=== PATIENT | female | born 1980 | race Caucasian/White ===

== ENCOUNTER 2016-09-25 13:57 | Observation (INO) ==
[2016-09-25] MEDS ORDERED: 0.9 % Sodium Chloride 1,000 ML IVC ONE (14:00)
[2016-09-25] MEDS ORDERED: Hydrocortisone Sodium Succ 100 MG/2 ML VIAL IVP ONE (14:01)
[2016-09-25] MEDS ORDERED: Ketorolac 30 MG/ML VIAL IVP ONE (14:02)
[2016-09-25] MEDS ORDERED: *HR* Promethazine 25 MG/ML VIAL IVP ONE (14:02)
--- NOTE | 2016-09-25 14:10 | Emergency Department Note ---
Disposition Clinical Impression: Intractable abdominal pain, History of Almo's disease Intractable nausea and vomiting Qualifiers: Vomiting type: unspecified Qualified Code(s): R11.2 - Nausea with vomiting, unspecified Disposition: Admitted As Inpatient Condition: Fair Referrals: NO,PCP [Primary Care Provider] - Forms: Work/School Release, ED Satisfaction Letter Time of Disposition: 18:38 Abdominal Pain HPI - General Chief Complaint: ED Abdominal Pain Stated Complaint: abdominal pain/n/v Time Seen by Provider: 09/25/16 13:59 Source: patient, EMS Mode of arrival: ambulatory Limitations: no limitations Nursing Notes Reviewed: Yes Vital Signs Reviewed: Yes - History of Present Illness HPI Narrative: Patient is a 36-year-old female with past history of Almo's disease. She presents today due to nausea, vomiting, generalized abdominal pain, what she is calling medicine crisis. Patient says that she takes 20 mg of hydrocortisone daily. She does not have any medication home for [place] crisis because "her insurance will not cover it. "Patient said that she has had multiple crises in the past and they will presented this way. She denies any fever, diarrhea, chest pain, shortness of breath, burning with urination or blood in urine. She does admit to sweating and generalized fatigue Pain Scale: 10 - Related Data Home Medications Medication Instructions Recorded Confirmed Pantoprazole Sodium [Protonix] 40 mg PO DAILY 04/06/16 09/25/16 Hydrocortisone [Cortef] 20 mg PO DAILY 09/25/16 09/25/16 Previous Rx's Medication Instructions Recorded Aspirin 81 mg PO DAILY #30 tab.chew 04/17/16 Allergies Allergy/AdvReac Type Severity Reaction Status Date / Time No Known Allergies Allergy Verified 09/14/16 12:09 Constitutional: Denies: fever, chills Eyes: Denies: eye pain, eye discharge ENT ED: Denies: ear pain, throat pain Cardiovascular: Denies: chest pain, palpitations, dyspnea on exertion Respiratory: Denies: cough, dyspnea, wheezes Gastrointestinal: Reports: abdominal pain, nausea, vomiting. Denies: diarrhea, constipation Genitourinary: Denies: urgency, dysuria, frequency Musculoskeletal: Denies: back pain, neck pain Integumentary: Denies: rash, abrasion Neurological: Denies: headache, weakness, numbness Psychiatric: Denies: anxiety, depression Endocrine: Denies: fatigue Abdominal Pain PMH - Past Medical History Medical history: Reports: other Female Surgical History: Reports: LATIN PROFESSOR history: Reports: no LATIN PROFESSOR history Psychiatric history: Reports: previous psychiatric hospitalization, anxiety, depression, panic disorder, prior suicide attempt - Social History Smoking status: Current every day smoker Alcohol use: Reports: occasionally Drug use: Reports: marijuana Physical Exam - General Limitations: no limitations General appearance: alert, in distress - Head Head exam: atraumatic, normocephalic, normal inspection - Eye Eye exam: Present: normal appearance, PERRL, EOMI - ENT ENT exam: normal exam, normal oropharynx, mucous membranes moist - Neck Neck exam: Present: normal inspection, full ROM, trachea midline - Chest Chest inspection: Present: normal inspection, symmetric chest wall rise - Respiratory Respiratory exam: Present: normal lung sounds bilaterally. Absent: respiratory distress, wheezes, stridor - Cardiovascular Cardiovascular exam: Present: regular rate, normal rhythm, normal heart sounds - Abdominal Exam Abdominal exam: Present: soft, tenderness (Moderate generalized tenderness). Absent: distention, guarding, rebound, rigidity - Extremities Exam Extremities exam: Present: normal inspection, full ROM. Absent: tenderness, pedal edema - Back Exam Back exam: Present: normal inspection, full ROM. Absent: tenderness - Neurological Exam Neurological exam: Present: alert, oriented X3 - Psychiatric Psychiatric exam: Present: normal affect, normal mood - Skin Skin exam: Present: warm, dry, intact, normal color Course Course Narrative: Vitals within normal limits. When patient presented, she was on her side in the position and actively gagging and vomiting. She had moderate generalized tenderness of the abdomen but no rigidity or peritoneal signs. She got Zofran 4 mg and a normal saline 1 L by the squad. She states that these are not helping. She says Phenergan usually helps with her nausea. She is also requesting pain medication for her abdominal pain. She states that she normally gets Solu-Cortef injection for addisonian crisis. We will also draw basic labs, abdominal pain labs, random cortisol and ACTH levels. We will give the patient Phenergan for nausea, Toradol for pain control, another liter of fluid. 18:34 patient was given multiple doses of antiemetic including Phenergan and Zofran during her stay. She was also given Toradol, morphine, Dilaudid for abdominal pain. She is still having intractable nausea and vomiting and abdominal pain. CT scan of abdomen and pelvis was negative for any acute intra- abdominal process. No major abnormalities on labs except for a white blood cell count of 14.9. Random cortisol level still pending. ACTH level still pending as well. I talked to the hospitalist and he has accepted the patient for admission. Vital Signs Temperature 97.7 F 09/25/16 14:00 Pulse Rate 84 09/25/16 14:00 Respiratory Rate 22 09/25/16 14:00 Blood Pressure 151/98 09/25/16 14:00 O2 Sat by Pulse Oximetry 99 09/25/16 14:00 Temperature 97.7 F 09/25/16 14:00 Pulse Rate 96 09/25/16 18:14 Respiratory Rate 16 09/25/16 18:14 Blood Pressure 163/99 09/25/16 18:14 O2 Sat by Pulse Oximetry 97 09/25/16 18:14 Oxygen Delivery Oxygen Delivery Room Air Abdominal Pain - MDM Narrative Medical decision making narrative: patient was given multiple doses of antiemetic including Phenergan and Zofran during her stay. She was also given Toradol, morphine, Dilaudid for abdominal pain. She is still having intractable nausea and vomiting and abdominal pain. CT scan of abdomen and pelvis was negative for any acute intra-abdominal process. No major abnormalities on labs except for a white blood cell count of 14.9. Random cortisol level still pending. ACTH level still pending as well. I talked to the hospitalist and he has accepted the patient for admission for intractable nausea and vomiting, intractable abdominal pain, concern for addisonian crisis. - Medical Records Medical records reviewed: Yes I reviewed the patient's medical records. - Lab Data Lab results reviewed: Yes I reviewed the patient's lab results. Result diagrams: 09/25/16 15:41 09/25/16 15:41 Lab Results 09/25/16 09/25/16 09/25/16 Range/Units 15:41 15:41 15:41 WBC 14.9 H (4.3-11.1) K/mcL RBC 4.52 (3.82-4.97) M/mcL Hgb 14.6 (11.5-15.4) g/dL Hct 46.2 H (35.3-44.9) % MCV 102.2 H (83.0-100.0) fL MCH 32.3 (28.0-33.3) pg MCHC 31.6 (31.6-35.5) g/dL RDW 12.1 (11.5-14.5) % Plt Count 364 (140-400) K/mcL MPV 9.5 (9.4-12.4) fL Immature Gran % 0.7 (0-4) % Seg Neutrophils % 93.6 % Lymphocytes % 3.0 % Monocytes % 2.3 % Eosinophils % 0.0 % Basophils % 0.4 % Neutrophils # 14.0 H (1.6-8.9) K/mcL Lymphocytes # 0.5 L (0.6-4.6) K/mcL Monocytes # 0.3 (0.0-1.3) K/mcL Eosinophils # 0.0 (0.0-0.6) K/mcL Basophils # 0.1 (0.0-0.2) K/mcL Sodium 139 (136-145) mEq/L Potassium 4.0 (3.5-4.5) mEq/L Chloride 110 H (98-109) mEq/L Carbon Dioxide 16 L (19-29) mEq/L BUN 9 (7-20) mg/dL Creatinine 0.65 (0.57-1.11) mg/dL Est GFR ( Amer) > 60 (> 60) Est GFR (Non-Af Amer) > 60 (> 60) BUN/Creatinine Ratio 14 (6-26) Glucose 120 H (70-99) mg/dL Calculated Osmolality 288 (280-300) Calcium 9.2 (8.6-10.8) mg/dL Total Bilirubin 1.1 (0.2-1.2) mg/dL Direct Bilirubin 0.4 (0.0-0.5) mg/dL Indirect Bilirubin 0.7 (0.0-1.2) mg/dL AST 16 (5-34) Units/L ALT 20 (0-55) Units/L Alkaline Phosphatase 82 (38-126) Units/L Serum Total Protein 7.1 (6.0-8.3) g/dL Albumin 3.8 (3.5-5.0) g/dL Globulin 3.3 (2.4-3.5) g/dL Albumin/Globulin Ratio 1.2 (1.1-2.2) Amylase 51 (25-125) Units/L Lipase 11 (8-78) Units/L Random Cortisol 123.8 mcg/dl Urine Color (Yellow) Urine Clarity (Clear) Urine pH (5.0-8.0) pH Units Ur Specific [place] (1.010-1.025) Urine Protein (Neg-Trace) mg/dL Urine Glucose (UA) (Normal) mg/dL Urine Ketones (Negative) mg/dL Urine Blood (Negative) Urine Nitrite (Negative) Urine Bilirubin (Negative) Urine Urobilinogen (Normal) mg/dL Ur Leukocyte Esterase (Negative) Urine Microscopic RBC Urine Microscopic WBC (0-3) per hpf Ur Squamous Epith Cells (None-Few) per lpf Amorphous Sediment (Few) Urine Bacteria (None-Few) per hpf Hyaline Casts (None-Few) per lpf Granular Casts (None Seen) per lpf Urine Mucus (Few) Ur Culture Indicated? (NO) Urine Test (Negative) 09/25/16 09/25/16 Range/Units 16:51 16:56 WBC (4.3-11.1) K/mcL RBC (3.82-4.97) M/mcL Hgb (11.5-15.4) g/dL Hct (35.3-44.9) % MCV (83.0-100.0) fL MCH (28.0-33.3) pg MCHC (31.6-35.5) g/dL RDW (11.5-14.5) % Plt Count (140-400) K/mcL MPV (9.4-12.4) fL Immature Gran % (0-4) % Seg Neutrophils % % Lymphocytes % % Monocytes % % Eosinophils % % Basophils % % Neutrophils # (1.6-8.9) K/mcL Lymphocytes # (0.6-4.6) K/mcL Monocytes # (0.0-1.3) K/mcL Eosinophils # (0.0-0.6) K/mcL Basophils # (0.0-0.2) K/mcL Sodium (136-145) mEq/L Potassium (3.5-4.5) mEq/L Chloride (98-109) mEq/L Carbon Dioxide (19-29) mEq/L BUN (7-20) mg/dL Creatinine (0.57-1.11) mg/dL Est GFR ( Amer) (> 60) Est GFR (Non-Af Amer) (> 60) BUN/Creatinine Ratio (6-26) Glucose (70-99) mg/dL Calculated Osmolality (280-300) Calcium (8.6-10.8) mg/dL Total Bilirubin (0.2-1.2) mg/dL Direct Bilirubin (0.0-0.5) mg/dL Indirect Bilirubin (0.0-1.2) mg/dL AST (5-34) Units/L ALT (0-55) Units/L Alkaline Phosphatase (38-126) Units/L Serum Total Protein (6.0-8.3) g/dL Albumin (3.5-5.0) g/dL Globulin (2.4-3.5) g/dL Albumin/Globulin Ratio (1.1-2.2) Amylase (25-125) Units/L Lipase (8-78) Units/L Random Cortisol mcg/dl Urine Color Yellow (Yellow) Urine Clarity Turbid A (Clear) Urine pH 7.0 (5.0-8.0) pH Units Ur Specific [place] 1.024 (1.010-1.025) Urine Protein Trace (Neg-Trace) mg/dL Urine Glucose (UA) Normal (Normal) mg/dL Urine Ketones 15 H (Negative) mg/dL Urine Blood Trace H (Negative) Urine Nitrite Negative (Negative) Urine Bilirubin Negative (Negative) Urine Urobilinogen Normal (Normal) mg/dL Ur Leukocyte Esterase Moderate H (Negative) Urine Microscopic RBC Test Not Performed Urine Microscopic WBC 5-15 H (0-3) per hpf Ur Squamous Epith Cells Many H (None-Few) per lpf Amorphous Sediment Many H (Few) Urine Bacteria Moderate H (None-Few) per hpf Hyaline Casts Few (None-Few) per lpf Granular Casts Few H (None Seen) per lpf Urine Mucus Few (Few) Ur Culture Indicated? YES A (NO) Urine Test Negative (Negative) - Radiology Data Radiology results reviewed: Yes I reviewed the patient's radiology results. Abdomen/Pelvis CT 09/25/16 14:39 IMPRESSION: No acute findings within the abdomen or pelvis. No CT evidence of appendicitis. Stable calcification and nodularity of the left adrenal gland, likely related to previous trauma or infectious or inflammatory process. Suggestion of nonobstructive left-sided nephrolithiasis. No evidence of obstructive uropathy. D/ / 09/25/2016 17:04:12 Qamar Merritt MD / [place] Interpreting Provider: Qamar Merritt MD - EKG Data EKG attestation: Yes I reviewed and interpreted this EKG. EKG results narrative: Sep 25 2016 14:11. Normal sinus rhythm. Rate 84. QTC 417. QRS 102. No acute ST elevation or depression. No changes from previous EKG on 01/25/2016. Nicholas - Nicholas Situation: Demographics, MOA Background: Presenting Complaint, Relevant PMH, Meds, & Allergies Assessment: Vital Signs, Course and respsone to treatment, Exam Concerns, Patient/Family Expectation, Pertinant Lab Results, Outstanding Labs Recommendation: Barrier(s) to disposition, Recommendation based on pending studies, treatments, or consults Nicholas Report Given to: Dr. Jeannie Peterson Repor Time: 18:38 Attestation Statement - Attestation Attestation: I examined this patient and my medical decision-making was reviewed with the CISTERN ROOM WORKING SUPERVISOR/PA/Advanced Practice Nurse/Resident Physician. I agree with the documented findings, disposition and treatment plan as described except to the extent set forth below. Patient to the emergency department complaining of adrenal crisis. Patient states she has Almo's disease. States she does not see her specialist anymore. States she has a primary care physician writes her steroids that she does not know what his name is. Pain and vomiting since last night. On exam she is laying in bed. Epigastric tenderness. Abdomen soft. Plan. Labs fluid steroids and reevaluate.
[2016-09-25] MEDS ORDERED: Ondansetron 4 MG/2 ML VIAL IVP ONE (15:17)
[2016-09-25] MEDS ORDERED: *HR* Morphine 2 MG/ML SYRINGE IVP ONE (15:18)
[2016-09-25 15:50] LABS: Basophils # 0.1 K/mcL (0.0-0.2); Basophils % 0.4 %; Hematocrit 46.2 % (35.3-44.9); Hemoglobin 14.6 g/dL (11.5-15.4); Immature Granulocytes % 0.7 % (0-4); Lymphocytes # 0.5 K/mcL (0.6-4.6); Mean Corpuscular HGB Conc 31.6 g/dL (31.6-35.5); Mean Corpuscular Hemoglobin 32.3 pg (28.0-33.3); Mean Corpuscular Volume 102.2 fL (83.0-100.0); Mean Platelet Volume 9.5 fL (9.4-12.4); Monocytes # 0.3 K/mcL (0.0-1.3); Monocytes % 2.3 %; Platelet Count 364 K/mcL (140-400); Red Blood Count 4.52 M/mcL (3.82-4.97); Red Cell Distribution Width 12.1 % (11.5-14.5); Segmented Neutrophils % 93.6 %
[2016-09-25 16:08] LABS: Alanine Aminotransferase 20 Units/L (0-55); Albumin 3.8 g/dL (3.5-5.0); Albumin/Globulin Ratio 1.2 (1.1-2.2); Alkaline Phosphatase 82 Units/L (38-126); Amylase 51 Units/L (25-125); Aspartate Amino Transferase 16 Units/L (5-34); BUN/Creatinine Ratio 14 (6-26); Bilirubin,Direct 0.4 mg/dL (0.0-0.5); Bilirubin,Indirect 0.7 mg/dL (0.0-1.2); Bilirubin,Total 1.1 mg/dL (0.2-1.2); Blood Urea Nitrogen 9 mg/dL (7-20); Calcium 9.2 mg/dL (8.6-10.8); Carbon Dioxide 16 mEq/L (19-29); Chloride 110 mEq/L (98-109); Globulin 3.3 g/dL (2.4-3.5); Glucose 120 mg/dL (70-99); Lipase 11 Units/L (8-78); Osmolality,Calculated 288 (280-300); Sodium 139 mEq/L (136-145); Total Protein 7.1 g/dL (6.0-8.3); eGFR For African Americans > 60 (> 60); eGFR For Non-African Americans > 60 (> 60)
[2016-09-25 17:02] LABS: Bilirubin,Urine Negative (Negative); Blood,Urine Trace (Negative); Clarity,Urine Turbid (Clear); Color,Urine Yellow (Yellow); Glucose,Urine (UA) Normal (Normal); Ketones,Urine 15 mg/dL (Negative); Leukocyte Esterase,Urine Moderate (Negative); Nitrite,Urine Negative (Negative); Protein,Urine Trace mg/dL (Neg-Trace); Specific Gravity,Urine 1.024 (1.010-1.025); Urobilinogen,Urine Normal (Normal)
[2016-09-25 17:04] LABS: Bacteria,Urine Moderate per hpf (None-Few); Hyaline Casts,Urine Few per lpf (None-Few); Squamous Epithelial Cell,Urine Many per lpf (None-Few)
[2016-09-25 17:13] LABS: Amorphous Sediment,Urine Many (Few)
[2016-09-25 17:14] LABS: Granular Casts,Urine Few per lpf (None Seen); Mucus,Urine Few (Few)
[2016-09-25] MEDS ORDERED: *HR* HYDROmorphone (PF) 1 MG/ML SYRINGE IVP ONE (17:58)
[2016-09-25] MEDS ORDERED: *HR* Morphine 2 MG/ML SYRINGE IVP PRN (19:56)
[2016-09-25] MEDS ORDERED: Ondansetron 4 MG/2 ML VIAL IVP PRN (19:58)
[2016-09-25] MEDS ORDERED: Acetaminophen 325 MG TABLET PO PRN (20:53)
[2016-09-25] MEDS ORDERED: Naloxone 0.4 MG/ML INJ IVP PRN (20:53)
--- NOTE | 2016-09-25 21:09 | Internal Med History&Physical ---
Date of Encounter: 09/25/16 Time of Encounter: 20:30 Assessment and Plan (1) Intractable vomiting with nausea Current visit: No Status: Resolved Patient came in with intractable nausea and vomiting. Etiology likely secondary to adrenal insufficiency. Zofran/Phenergan for nausea control. Morphine for pain control Solu-Cortef 100mg Q8HR continue to monitor electrolytes. Clear liquid diet until nausea subsides- consider advancing diet as tolerated tomorrow. IVF at 100ml/hr Patient should follow up with PCP after discharge, continue home replacement steroids as directed by PCP. Patient counseled on importance of taking home steroid and regular PCP follow up. Qualifiers: Vomiting type: unspecified Qualified Code(s): R11.2 - Nausea with vomiting , unspecified (2) GERD (gastroesophageal reflux disease) Current visit: Yes Status: Acute continue home med prilosec. Qualifiers: Esophagitis presence: esophagitis presence not specified Qualified Code(s) : K21.9 - Gastro-esophageal reflux disease without esophagitis (3) Abdominal pain Current visit: No Status: Acute pain control with morphine. plan as above. Qualifiers: Abdominal location: unspecified location Qualified Code(s): R10.9 - Unspecified abdominal pain (4) Adrenal insufficiency (Bennington's disease) Current visit: No Status: Chronic plan as #1 above. (5) Leucocytosis Current visit: No Status: Resolved Patient's white count is 14.9 with neutrophil count of 14. Etiology unclear at this time, urinalysis showed possible evidence of infection , urine culture pending. CT abdomen/pelvis showed no acute findings, but stable calcification and nodularity of left adrenal gland, no evidence of obstructive uropathy. Patient's temperature at this time is normal. Upon admission to ED, her respirations were 22, but likely due to dehydration and vomiting. COntinue to monitor, trend with repeat CBC in am. Qualifiers: Leukocytosis type: unspecified Qualified Code(s): D72.829 - Elevated white blood cell count, unspecified (6) Tobacco abuse Current visit: No Status: Chronic nicotine patch PRN (7) DVT prophylaxis Current visit: No Status: Acute Heparin SQ Internal Medicine - H&P: HPI Chief complaint: nause and vomiting Admitted From: Emergency Dept Plans for Post Hospital Care: Home History of present illness: PCP: she does not remember. Was seeing Fouzia Crane but she was dismissed from that practice due to frequent no-shows. She sees a new doctor at the [facility] but does not remember his name. Ms. Cronin is a 36 year old female with PMHx of Addisons disease, anxiety, depression, GERD, factor V leiden, hx of past suicide attempt. Patient came to the ED with CC of nause and vomiting. She states that she has been under a lot of stress recently due to work. Last night, she started feeling nauseous and was having constant abdominal pain that started as 9/10, but was 6/10 upon examination. She started vomiting continuously (too many episodes to count). Her vomit was yellow colored, but contained no blood. Recent sick contact includes her two year old daughter, who had a cough, runny nose, but no fever. She denies having diarrhea. She denies subjective fevers, but admits to having chills and diaphoresis. She states she has had multiple episodes of addionian crises in the past. Her last admission to this hospital for adrenal insufficiency was in february. She states that she takes her home dose of hydrocortisone regularly, and does not miss doses. However, she never was able to fill her prescription for her emergency solu-cortef shot because her insurance would not cover it and she cannot afford it. She reports having dizziness, fatigue, weakness, diaphoresis and states that she feels like she is "dying." She also says she feels "bloated". SHe denies any syncopal events, gait abnormality. Social Hx: lives with mom and daughter. Smokes 1PPD for the past 18 years. Occasional alcohol use. Occasionally smokes marijuana to help with nausea. Denies illicit drug use, denies hx of IV drug use. Family Hx: dad from lung cancer at 54, and was a smoker. paternal grandfather of lung cancer and had colon cancer. mother is still living, smokes and has COPD, had hx of open heart surgery. she has one sister with hypothyroidism and one sister with fibromyalgia. Surgical Hx: tubal ligation 2 years ago with . laproscopic cholecystectomy 7 years ago, reconstructive face surgery because of left orbital blow out fracture about 10 years go. Past Med Surg Social Fam HX - Past Medical History Medical history: other Psychiatric history: previous psychiatric hospitalization, anxiety, depression, panic disorder, prior suicide attempt - Past Surgical History Surgical History: no surgical history, cholecystectomy, - Social History Smoking Status: Current every day smoker Smokeless Tobacco Status: No Alcohol use: occasionally Drug use: marijuana - Family History Mother Hx Family Cardiac Disorders: Yes (bypass surgury.) Hx Family Respiratory Disorders: Yes (COPD) Hx Family GI Disorders: No Hx Family Endocrine Disorder: Yes (DM) Hx Family Neuromuscular Disorders: No Hx Family Neurologic Disorders: No Hx Family HEENT Disorders: No Hx Family Autoimmune Disorders: No Father Living Status: Hx Family Cancer: Yes (Lung) Internal Medicine - H&P: Meds Pantoprazole Sodium [Protonix] 40 mg PO DAILY 04/06/16 [History] Aspirin 81 mg PO DAILY #30 tab.chew 04/17/16 [Rx] Hydrocortisone [Cortef] 20 mg PO DAILY 09/25/16 [History] Allergies No Known Allergies Allergy (Verified 09/14/16 12:09) All Systems PM: A 10-system review of systems was performed and is negative for pertinent findings except as documented above in the HPI. - Constitutional Constitutional: chills, excessive sweating, fatigue, lethargy, weakness, no fever(s), no falls - EENT Eyes: pain (abdominal pain) - Cardiovascular Cardiovascular ROS IM: diaphoresis, lightheadedness, no syncope - Gastrointestinal Gastrointestinal: abdominal pain, bloating, nausea, vomiting, no diarrhea - Neurological Neurological ROS: dizziness, no abnormal gait, no frequent falls - Psychiatric Psychiatric: depression, no homicidal ideation, no suicidal ideation - Constitutional Vitals: Temp Pulse Resp BP Pulse Ox 98.0 F 94 14 113/76 97 09/25/16 19:41 09/25/16 19:41 09/25/16 19:41 09/25/16 19:41 09/25/16 19:41 General appearance: Present: A&O X 3, pleasant, no acute distress, answers questions appropriately - Head Head exam: Present: atraumatic, normocephalic - Eye Eye exam: Present: EOMI, PERRL, conjuntiva pink, sclera anicteric Pupils: Present: PERRL - Neck Neck exam general surgery: Present: supple, trachea midline - Respiratory Respiratory exam: Present: CTAB. Absent: rhonchi, wheezes - Cardiovascular Cardiovascular exam: Present: RRR, +S1, +S2 - GI/Abdominal GI/Abdominal exam: Present: normal bowel sounds, tenderness (left upper quadrant tenderness to palpation. ) - Extremities Exam Extremities exam: Present: normal capillary refill, radial pulses palpable and symetrical. Absent: cyanotic, pedal edema - Back Exam Additional comments: mole on back. - Neurological Exam Neurological exam: Present: alert, oriented X3, no focal deficits - Psychiatric Psychiatric exam: Present: normal affect, normal mood. Absent: homicidal ideation - Skin Skin exam: Present: dry, normal color. Absent: cyanosis Additional comments: tattoos present on both schins, lower abdomen, lower back. Internal Med - H&P Results - Labs CBC & Chem 7: 09/25/16 15:41 09/25/16 15:41
[2016-09-25] MEDS: 0.9 % Sodium Chloride 1,000 ML IVC SCH (21:31)
[2016-09-25] MEDS ORDERED: Nicotine 14 MG PATCH.TD24 TD PRN (21:48)
[2016-09-25] MEDS: *HR* Promethazine 25 MG/ML VIAL IVP PRN (22:17)
[2016-09-25] MEDS: Aspirin 81 MG TAB.CHEW PO SCH (22:17)
[2016-09-25] MEDS: *HR* Heparin 5,000 UNIT/ML VIAL SQ SCH (22:17)
[2016-09-25] MEDS: Hydrocortisone Sodium Succ 100 MG/2 ML VIAL IVP SCH (22:18)
[2016-09-25] MEDS: Pantoprazole 40 MG VIAL IVP SCH (23:53)
[2016-09-26] MEDS: *HR* Morphine 2 MG/ML SYRINGE IVP PRN ×5 (04:12→20:43)
[2016-09-26] MEDS: *HR* Promethazine 25 MG/ML VIAL IVP PRN ×3 (04:12→18:02)
[2016-09-26] MEDS: *HR* Heparin 5,000 UNIT/ML VIAL SQ SCH ×3 (06:32→22:09)
[2016-09-26] MEDS: Hydrocortisone Sodium Succ 100 MG/2 ML VIAL IVP SCH ×3 (06:32→22:10)
[2016-09-26] MEDS: Pantoprazole 40 MG VIAL IVP SCH (08:04)
[2016-09-26] MEDS: Aspirin 81 MG TAB.CHEW PO SCH (08:04)
[2016-09-26] MEDS: 0.9 % Sodium Chloride 1,000 ML IVC SCH ×2 (08:06→17:00)
[2016-09-26 09:07] LABS: Basophils % 0.1 %; Hematocrit 38.5 % (35.3-44.9); Immature Granulocytes % 0.9 % (0-4); Lymphocytes # 0.9 K/mcL (0.6-4.6); Lymphocytes % 6.3 %; Mean Corpuscular HGB Conc 33.5 g/dL (31.6-35.5); Mean Corpuscular Hemoglobin 32.4 pg (28.0-33.3); Mean Corpuscular Volume 96.7 fL (83.0-100.0); Mean Platelet Volume 9.8 fL (9.4-12.4); Monocytes # 0.5 K/mcL (0.0-1.3); Monocytes % 3.4 %; Neutrophils # 13.3 K/mcL (1.6-8.9); Platelet Count 380 K/mcL (140-400); Red Blood Count 3.98 M/mcL (3.82-4.97); Red Cell Distribution Width 12.1 % (11.5-14.5); Segmented Neutrophils % 89.3 %
[2016-09-26 09:08] LABS: Hemoglobin 12.9 g/dL (11.5-15.4)
[2016-09-26 09:18] LABS: BUN/Creatinine Ratio 11 (6-26); Blood Urea Nitrogen 7 mg/dL (7-20); Calcium 8.8 mg/dL (8.6-10.8); Carbon Dioxide 19 mEq/L (19-29); Chloride 110 mEq/L (98-109); Glucose 123 mg/dL (70-99); Magnesium 1.6 mg/dL (1.6-2.6); Osmolality,Calculated 285 (280-300); Sodium 138 mEq/L (136-145); eGFR For African Americans > 60 (> 60); eGFR For Non-African Americans > 60 (> 60)
--- NOTE | 2016-09-26 10:56 | Electrocardiograph Report ---
[address] [address] Test Date: 2016-09-25 Pat Name: Stephani Cronin Department: 105 Room: 3A45 Gender: F Field Case Manager: : [id number] Requested By: Michael Arita Order Number: [id number] Reading MD: Fouzia Dial Measurements Intervals Rodman Rate: 84 P: 63 HI: 203 QRS: 78 QRSD: 102 T: 45 QT: 375 QTc: 417 Interpretive Statements SINUS RHYTHM Electronically Signed On 09-26-2016 10:55:06 EST by Fouzia Dial
--- NOTE | 2016-09-26 11:10 | Internal Med Progress Note ---
Date of Encounter: 09/26/16 Time of Encounter: 11:08 - Assessment and plan (1) Intractable nausea and vomiting Current Visit: Yes Status: Acute Assessment and plan: Improved from previous day will advance to regular diet Promethazine prn n/v if remains asymptomatic overnight, likely d/c in am Qualifiers: Vomiting type: unspecified Qualified Code(s): R11.2 - Nausea with vomiting , unspecified (2) Abdominal pain Current Visit: No Status: Resolved Assessment and plan: resolved at this time will continue to monitor Qualifiers: Abdominal location: unspecified location Qualified Code(s): R10.9 - Unspecified abdominal pain (3) History of Beauregard's disease Current Visit: Yes Status: Acute Assessment and plan: Patient reported of not being able to take her Hydrocortisone dosage due to severe nausea and vomiting Initially was started on high stress dose steroids, will taper down dose as patient is clinically improving Will resume PO dose of steroids in am (4) Leucocytosis Current Visit: No Status: Resolved Assessment and plan: likely reactive will monitor off abx at this time UA consistent with bacteuria however patient denies any urinary symptoms, dysuria therefore will not treat asymptomatic bacteruria. Qualifiers: Leukocytosis type: unspecified Qualified Code(s): D72.829 - Elevated white blood cell count, unspecified (5) GERD (gastroesophageal reflux disease) Current Visit: Yes Status: Acute Assessment and plan: continue home medications Qualifiers: Esophagitis presence: esophagitis presence not specified Qualified Code(s) : K21.9 - Gastro-esophageal reflux disease without esophagitis (6) DVT prophylaxis Current Visit: No Status: Acute Assessment and plan: heparin sq (7) Tobacco abuse Current Visit: No Status: Chronic Assessment and plan: Smoking cessation counselling provided patient not ready to quit at this time nicotine replacement therapy provided - Subjective Interval history: Patient seen and examined at bedside. Resting in bed and reports of feeling better compared to the previous day. Tolerated clear liquid diet well this morning and reports of improvement in her nausea and no vomiting. - Constitutional Vitals: Temp Pulse Resp BP Pulse Ox 97.8 F 83 14 104/59 97 09/26/16 07:37 09/26/16 07:37 09/26/16 07:37 09/26/16 07:37 09/26/16 07:37 General appearance: Present: cooperative, A&O X 3, pleasant, no acute distress, answers questions appropriately - Head Head exam: Present: atraumatic, normocephalic - Eye Eye exam: Present: conjuntiva pink, sclera anicteric - Respiratory Respiratory exam: Present: CTAB. Absent: respiratory distress, wheezes - Cardiovascular Cardiovascular exam: Present: RRR, +S1, +S2 - GI/Abdominal GI/Abdominal exam: Present: normal bowel sounds, soft. Absent: distended, tenderness - Extremities Exam Extremities exam: Present: warm, radial pulses palpable and symetrical. Absent : pedal edema - Neurological Exam Neurological exam: Present: alert, oriented X3 - Psychiatric Psychiatric exam: Present: normal affect, normal mood Internal Medicine: Result - Labs CBC & Chem 7: 09/26/16 08:49 09/26/16 08:49 Labs: Short CBC 09/26/16 Range/Units 08:49 WBC 14.9 H (4.3-11.1) K/mcL Hgb 12.9 D (11.5-15.4) g/dL Hct 38.5 (35.3-44.9) % Plt Count 380 (140-400) K/mcL Neutrophils # 13.3 H (1.6-8.9) K/mcL BMP 09/26/16 08:49 Sodium 138 Potassium 4.0 Chloride 110 H Carbon Dioxide 19 BUN 7 Creatinine 0.63 Glucose 123 H Calcium 8.8 Consult Discharge Plan - Plan Referrals: NO,PCP [Primary Care Provider] -
[2016-09-26] MEDS: Nicotine 2 MG GUM BC PRN ×3 (12:08→20:44)
[2016-09-27] MEDS: *HR* Promethazine 25 MG/ML VIAL IVP PRN ×2 (00:54→06:57)
[2016-09-27] MEDS: *HR* Morphine 2 MG/ML SYRINGE IVP PRN ×3 (00:57→09:29)
[2016-09-27] MEDS: Nicotine 2 MG GUM BC PRN ×2 (03:50→09:28)
[2016-09-27 04:08] LABS: Basophils % 0.3 %; Hematocrit 33.1 % (35.3-44.9); Hemoglobin 10.8 g/dL (11.5-15.4); Immature Granulocytes % 0.5 % (0-4); Lymphocytes # 1.7 K/mcL (0.6-4.6); Lymphocytes % 11.4 %; Mean Corpuscular HGB Conc 32.6 g/dL (31.6-35.5); Mean Corpuscular Hemoglobin 32.6 pg (28.0-33.3); Mean Platelet Volume 10.2 fL (9.4-12.4); Monocytes % 6.2 %; Neutrophils # 12.5 K/mcL (1.6-8.9); Platelet Count 299 K/mcL (140-400); Red Blood Count 3.31 M/mcL (3.82-4.97); Red Cell Distribution Width 12.2 % (11.5-14.5); Segmented Neutrophils % 81.6 %
[2016-09-27 04:12] LABS: BUN/Creatinine Ratio 6 (6-26); Calcium 8.1 mg/dL (8.6-10.8); Carbon Dioxide 19 mEq/L (19-29); Chloride 112 mEq/L (98-109); Glucose 125 mg/dL (70-99); Magnesium 1.4 mg/dL (1.6-2.6); Osmolality,Calculated 288 (280-300); Phosphorous 2.5 mg/dL (2.3-4.7); Potassium 3.4 mEq/L (3.5-4.5); Sodium 140 mEq/L (136-145); eGFR For African Americans > 60 (> 60); eGFR For Non-African Americans > 60 (> 60)
[2016-09-27 04:13] LABS: Blood Urea Nitrogen 4 mg/dL (7-20)
[2016-09-27] MEDS: 0.9 % Sodium Chloride 1,000 ML IVC SCH (04:37)
[2016-09-27] MEDS: *HR* Heparin 5,000 UNIT/ML VIAL SQ SCH (06:05)
[2016-09-27] MEDS: Hydrocortisone Sodium Succ 100 MG/2 ML VIAL IVP SCH (06:06)
[2016-09-27] MEDS ORDERED: Magnesium Sulfate 1 GM in D5% in Water 100 ML IVPB ONE (08:12)
[2016-09-27] MEDS: Pantoprazole 40 MG VIAL IVP SCH (09:28)
[2016-09-27] MEDS: Aspirin 81 MG TAB.CHEW PO SCH (09:28)
[2016-09-27] MEDS ORDERED: *HR* OxyCODONE/APAP 10/325 TABLET PO PRN (12:11)
[2016-09-27 15:45] VITALS: BP 126/79
--- NOTE | 2016-09-27 16:36 | Discharge Summary ---
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 (4) Leucocytosis Priority: Secondary Status: Resolved Qualifiers: Leukocytosis type: unspecified Qualified Code(s): D72.829 - Elevated white blood cell count, unspecified (5) GERD (gastroesophageal reflux disease) Priority: Secondary Status: Acute Qualifiers: Esophagitis presence: esophagitis presence not specified Qualified Code(s) : K21.9 - Gastro-esophageal reflux disease without esophagitis (6) DVT prophylaxis Priority: Secondary Status: Acute (7) Tobacco abuse Priority: Secondary Status: Chronic - Discharge Medications Prescriptions: OxyCODONE/APAP 10/325 [Percocet 10/325 MG] 1 each PO Q6HR PRN #20 tablet PRN Reason: Pain Ondansetron ODT [Zofran ODT] 4 mg PO Q6H PRN #20 tab.rapdis PRN Reason: Nausea Home Medications: Pantoprazole Sodium [Protonix] 40 mg PO DAILY 04/06/16 [History] Aspirin 81 mg PO DAILY #30 tab.chew 04/17/16 [Rx] Hydrocortisone [Cortef] 20 mg PO DAILY 09/25/16 [History] Ondansetron ODT [Zofran ODT] 4 mg PO Q6H PRN #20 tab.rapdis 09/27/16 [Rx] OxyCODONE/APAP 10/325 [Percocet 10/325 MG] 1 each PO Q6HR PRN #20 tablet [Rx] Allergies/Adverse Reactions: Allergies No Known Allergies Allergy (Verified 09/14/16 12:09) Date of admission: 09/25/16 18:41 Primary care physician: PCP NO Consults: 09/25/16 21:14 Consult to Turf Grower [CONS] Routine Reason for SW Consult: Financial Concerns Discharging clinician: Nandini Santizo Anticipated date of discharge: 02/09/17 - Patient Status Disposition: Home, Self-Care Condition: Good Functional capacity at discharge: independent ambulation Overall status at discharge: patient is back to baseline - Discharge Instructions Follow Up With: Heladio Tracy MD [Non-Partnered Physician] - 10/03/16 10:30 am Additional Instructions: Please follow up with her primary care physician within one week after discharge from the hospital. Please resume all home medications as prescribed by your primary care physician. - Diet and Activity Activity: resume usual activities as tolerated Diet: advance to your usual diet Hospital course: Ms. Cronin is a 36 year old female with PMHx of Addisons disease, anxiety, depression, GERD, factor V leiden, hx of past suicide attempt who was admitted for intractable nausea, vomiting, and abdominal pain. Reported of not being able to take her steroid dose due to severe nausea and vomiting. She was started on IV steroids, IV fluids, IV pain medications, IV antibiotics. CT abdomen and pelvis was unremarkable for any acute abnormalities. Patient's symptoms improved and she was transitioned to by mouth therapy. At this time she is tolerating by mouth intake well. She reports of resolution of her nausea and vomiting and improvement in her abdominal pain. At this time she is stable for discharge with follow-up with primary care physician. - Time Spent with Patient Total time spent providing and/or coordinating discharge services: - Constitutional Vitals: Temp Pulse Resp BP Pulse Ox 98.4 F 74 16 126/79 97 09/27/16 15:44 09/27/16 15:44 09/27/16 15:44 09/27/16 15:44 09/27/16 15:44 General appearance: Present: cooperative, A&O X 3, pleasant, no acute distress, answers questions appropriately - Head Head exam: Present: atraumatic, normocephalic - Eye Eye exam: Present: PERRL, conjuntiva pink, sclera anicteric - Respiratory Respiratory exam: Present: CTAB. Absent: accessory muscle use, rales, rhonchi, wheezes - Cardiovascular Cardiovascular exam: Present: RRR, +S1, +S2. Absent: diastolic murmur, gallop, rubs, systolic murmur - GI/Abdominal GI/Abdominal exam: Present: normal bowel sounds, soft, no peritoneal signs. Absent: distended, tenderness - Extremities Exam Extremities exam: Present: warm, radial pulses palpable and symetrical. Absent : calf tenderness, cyanotic, pedal edema - Neurological Exam Neurological exam: Present: CN II-XII intact, oriented X3, no focal deficits. Absent: pronater drift, facial droop, speech deficit - Psychiatric Psychiatric exam: Present: normal affect, normal mood
[2016-09-28] MEDS ORDERED: Hydrocortisone 10 MG TABLET PO SCH (14:00)
== END 2016-09-27 17:54 | disposition home or self-care (01) ==
LOC: EMEROO 13:57 → 3ANU 13:57
PROVIDERS: ADMIT Family Medicine; ATTEND Internal Medicine

== ENCOUNTER 2017-03-14 13:53 | Inpatient (IN) ==
[2017-03-14] MEDS ORDERED: 0.9 % Sodium Chloride 1,000 ML IVC ONE ×2 (13:55→16:01)
[2017-03-14] MEDS ORDERED: *HR* Promethazine 25 MG/ML VIAL IVP ONE ×3 (13:55→18:35)
[2017-03-14] MEDS ORDERED: *HR* HYDROmorphone (PF) 1 MG/ML SYRINGE IVP ONE ×3 (13:59→18:35)
[2017-03-14] MEDS ORDERED: Hydrocortisone Sodium Succ 100 MG/2 ML VIAL IVP ONE (14:03)
--- NOTE | 2017-03-14 14:21 | Emergency Department Note ---
Disposition Clinical Impression: Addisons disease Nausea and vomiting Qualifiers: Vomiting type: unspecified Vomiting Intractability: non-intractable Qualified Code(s): R11.2 - Nausea with vomiting, unspecified Abdominal pain Qualifiers: Abdominal location: epigastric Qualified Code(s): R10.13 - Epigastric pain Disposition: Admitted As Inpatient Condition: Good Reasons to Return/Additional Instructions: Please return to the emergency department for any worsening symptoms including intractable nausea and vomiting, abdominal pain, or inability to orally hydrate. Referrals: Armin Hyatt MD [Partnered Physician] - Forms: ED Satisfaction Letter General Adult HPI - General Chief complaint: ED Nausea/Vomiting/Diarrhea Stated complaint: n/v Time Seen by Provider: 03/14/17 13:55 Source: patient, EMS Mode of arrival: EMS Limitations: no limitations Nursing Notes Reviewed: Yes Vital Signs Reviewed: Yes - History of Present Illness HPI Narrative: 37-year-old female presenting to the emergency department for nausea and vomiting. She states that approximately 4 AM she woke up with severe epigastric abdominal pain and vomiting. She states she has multiple episodes similar to this one in the past. She states the pain does not radiate anywhere and is a 9 out of 10 at this moment. She states her normal treatment for this is IV steroids, Phenergan, and Dilaudid. She has a history of [place]'s disease which is maintained on 20 mg of hydrocortisone as an outpatient. She does not have follow-up with exchange trouble shooter at this time. She denies excessive alcohol intake. She is alert and in no acute distress in the room. Vital signs are stable at this time. Pain Scale: 9 - Related Data Home Medications Medication Instructions Recorded Confirmed Pantoprazole Sodium [Protonix] 40 mg PO DAILY 04/06/16 09/26/16 Hydrocortisone [Cortef] 20 mg PO DAILY 09/25/16 09/26/16 Previous Rx's Medication Instructions Recorded Aspirin 81 mg PO DAILY #30 tab.chew 04/17/16 Ondansetron ODT [Zofran ODT] 4 mg PO Q6H PRN #20 tab.rapdis 09/27/16 OxyCODONE/APAP 10/325 [Percocet 1 each PO Q6HR PRN #20 tablet 09/27/16 10/325 MG] Allergies Allergy/AdvReac Type Severity Reaction Status Date / Time No Known Allergies Allergy Verified 09/14/16 12:09 All systems ED: reviewed and negative except as stated. Gastrointestinal: Reports: abdominal pain, nausea, vomiting Past Medical History - Past Medical History Attestation: Yes The following information was validated with the patient. Source: patient Medical history: Reports: other Surgical history: Reports: no surgical history, cholecystectomy, Psychiatric history: Reports: previous psychiatric hospitalization, anxiety, depression, panic disorder, prior suicide attempt COORDINATOR OF GENETIC SERVICES history: Reports: no COORDINATOR OF [employer]ETIC SERVICES history - Social History Smoking Status: Current every day smoker Smokeless Tobacco Status: No Alcohol use: Reports: occasionally Drug use: Reports: marijuana Physical Exam - General Limitations: no limitations General appearance: alert, in no apparent distress - Head Head exam: atraumatic, normocephalic - Eye Eye exam: Present: normal appearance - ENT ENT exam: mucous membranes moist - Neck Neck exam: Present: normal inspection, full ROM - Chest Chest inspection: Present: normal inspection, symmetric chest wall rise. Absent : tenderness - Respiratory Respiratory exam: Present: normal lung sounds bilaterally. Absent: respiratory distress, wheezes - Cardiovascular Cardiovascular exam: Present: regular rate, normal rhythm, normal heart sounds - Abdominal Exam Abdominal exam: Present: soft, tenderness. Absent: distention, guarding, rebound, rigidity Abdominal tenderness: Present: epigastrium - Extremities Exam Extremities exam: Present: normal inspection, full ROM - Neurological Exam Neurological exam: Present: alert, oriented X3 - Psychiatric Psychiatric exam: Present: normal affect - Skin Skin exam: Present: warm, dry, intact Course Course Narrative: 37-year-old female presenting to the emergency department for acute onset nausea and vomiting. She has a history of [place]'s disease. She states these symptoms occur regularly for her. We will order a CBC, CMP, lipase, UA and test. Due to her history of [place]'s disease we will also provide IV fluids, IV steroids, pain control, and nausea control. - Reevaluation(s) Reevaluation #1: Upon reevaluation of patient she was resting comfortably in bed. She states her pain level is now 5 out of 10. She is asking for ice chips. They were provided for by mouth challenge. Time: 15:20 Reevaluation #2: Upon reevaluation the patient she is now feeling nauseous again and she is tachycardic in the room. We will give her another fluid bolus and administer a dose of Phenergan and Dilaudid. Time: 16:41 Reevaluation #3: Reevaluation the patient she is comfortably resting in the room. We will try by mouth challenge with a meal tray. Time: 17:07 Additional Reevaluation(s): Reevaluated the patient. She states she has not felt well going home due to intractable nausea and pain. Review have made the decision to admit her. 18:16 Dr. Grijalva accepts the patient 18:34 Vital Signs Temperature 98.9 F 03/14/17 13:54 Pulse Rate 93 03/14/17 13:54 Respiratory Rate 18 03/14/17 13:54 Blood Pressure 144/103 03/14/17 13:54 O2 Sat by Pulse Oximetry 98 03/14/17 13:54 Temperature 98.9 F 03/14/17 13:54 Pulse Rate 92 03/14/17 17:27 Respiratory Rate 18 03/14/17 17:27 Blood Pressure 155/72 03/14/17 17:27 O2 Sat by Pulse Oximetry 96 03/14/17 17:27 Oxygen Delivery Oxygen Delivery Room Air Medical Decision Making - Medical Records Medical records reviewed: Yes I reviewed the patient's medical records. - Lab Data Lab results reviewed: Yes I reviewed the patient's lab results. Result diagrams: 03/14/17 14:31 03/14/17 14:31 Lab Results 03/14/17 03/14/17 03/14/17 Range/Units 14:31 14:31 14:31 WBC 17.6 H (4.3-11.1) K/mcL RBC 4.25 (3.82-4.97) M/mcL Hgb 13.6 (11.5-15.4) g/dL Hct 40.5 (35.3-44.9) % MCV 95.3 (83.0-100.0) fL MCH 32.0 (28.0-33.3) pg MCHC 33.6 (31.6-35.5) g/dL RDW 12.0 (11.5-14.5) % Plt Count 366 (140-400) K/mcL MPV 10.0 (9.4-12.4) fL Immature Gran % 0.7 (0-4) % Seg Neutrophils % 93.3 % Lymphocytes % 3.4 % Monocytes % 2.3 % Eosinophils % 0.0 % Basophils % 0.3 % Neutrophils # 16.4 H (1.6-8.9) K/mcL Lymphocytes # 0.6 (0.6-4.6) K/mcL Monocytes # 0.4 (0.0-1.3) K/mcL Eosinophils # 0.0 (0.0-0.6) K/mcL Basophils # 0.1 (0.0-0.2) K/mcL Sodium 139 (136-145) mEq/L Potassium 3.7 (3.5-4.5) mEq/L Chloride 108 (98-109) mEq/L Carbon Dioxide 21 (19-29) mEq/L BUN 10 (7-20) mg/dL Creatinine 0.67 (0.57-1.11) mg/dL Est GFR ( Amer) > 60 (> 60) Est GFR (Non-Af Amer) > 60 (> 60) BUN/Creatinine Ratio 15 (6-26) Glucose 120 H (70-99) mg/dL Calculated Osmolality 288 (280-300) Calcium 8.8 (8.6-10.8) mg/dL Total Bilirubin 0.6 (0.2-1.2) mg/dL AST 19 (5-34) Units/L ALT 19 (0-55) Units/L Alkaline Phosphatase 73 (38-126) Units/L Serum Total Protein 7.3 (6.0-8.3) g/dL Albumin 3.8 (3.5-5.0) g/dL Globulin 3.5 (2.4-3.5) g/dL Albumin/Globulin Ratio 1.1 (1.1-2.2) Lipase < 10 (8-78) Units/L Serum , Qual Negative (Negative) Random Cortisol mcg/dl Urine Color (Yellow) Urine Clarity (Clear) Urine pH (5.0-8.0) pH Units Ur Specific [place] (1.010-1.025) Urine Protein (Neg-Trace) mg/dL Urine Glucose (UA) (Normal) mg/dL Urine Ketones (Negative) mg/dL Urine Blood (Negative) Urine Nitrite (Negative) Urine Bilirubin (Negative) Urine Urobilinogen (Normal) mg/dL Ur Leukocyte Esterase (Negative) Urine Microscopic RBC (0-3) per hpf Urine Microscopic WBC (0-3) per hpf Ur Squamous Epith Cells (None-Few) per lpf Urine Bacteria (None-Few) per hpf Hyaline Casts (None-Few) per lpf Ur Culture Indicated? (NO) 03/14/17 03/14/17 Range/Units 14:31 15:58 WBC (4.3-11.1) K/mcL RBC (3.82-4.97) M/mcL Hgb (11.5-15.4) g/dL Hct (35.3-44.9) % MCV (83.0-100.0) fL MCH (28.0-33.3) pg MCHC (31.6-35.5) g/dL RDW (11.5-14.5) % Plt Count (140-400) K/mcL MPV (9.4-12.4) fL Immature Gran % (0-4) % Seg Neutrophils % % Lymphocytes % % Monocytes % % Eosinophils % % Basophils % % Neutrophils # (1.6-8.9) K/mcL Lymphocytes # (0.6-4.6) K/mcL Monocytes # (0.0-1.3) K/mcL Eosinophils # (0.0-0.6) K/mcL Basophils # (0.0-0.2) K/mcL Sodium (136-145) mEq/L Potassium (3.5-4.5) mEq/L Chloride (98-109) mEq/L Carbon Dioxide (19-29) mEq/L BUN (7-20) mg/dL Creatinine (0.57-1.11) mg/dL Est GFR ( Amer) (> 60) Est GFR (Non-Af Amer) (> 60) BUN/Creatinine Ratio (6-26) Glucose (70-99) mg/dL Calculated Osmolality (280-300) Calcium (8.6-10.8) mg/dL Total Bilirubin (0.2-1.2) mg/dL AST (5-34) Units/L ALT (0-55) Units/L Alkaline Phosphatase (38-126) Units/L Serum Total Protein (6.0-8.3) g/dL Albumin (3.5-5.0) g/dL Globulin (2.4-3.5) g/dL Albumin/Globulin Ratio (1.1-2.2) Lipase (8-78) Units/L Serum , Qual (Negative) Random Cortisol > 119.6 mcg/dl Urine Color Yellow (Yellow) Urine Clarity Cloudy A (Clear) Urine pH 7.0 (5.0-8.0) pH Units Ur Specific [place] 1.017 (1.010-1.025) Urine Protein Trace (Neg-Trace) mg/dL Urine Glucose (UA) Normal (Normal) mg/dL Urine Ketones 80 H (Negative) mg/dL Urine Blood Negative (Negative) Urine Nitrite Negative (Negative) Urine Bilirubin Negative (Negative) Urine Urobilinogen Normal (Normal) mg/dL Ur Leukocyte Esterase Small H (Negative) Urine Microscopic RBC 0-3 (0-3) per hpf Urine Microscopic WBC 5-15 H (0-3) per hpf Ur Squamous Epith Cells Many H (None-Few) per lpf Urine Bacteria Many H (None-Few) per hpf Hyaline Casts None Seen (None-Few) per lpf Ur Culture Indicated? YES A (NO) - Radiology Data Radiology results reviewed: Yes I reviewed the patient's radiology results.
[2017-03-14 14:39] LABS: Basophils # 0.1 K/mcL (0.0-0.2); Basophils % 0.3 %; Hematocrit 40.5 % (35.3-44.9); Hemoglobin 13.6 g/dL (11.5-15.4); Immature Granulocytes % 0.7 % (0-4); Lymphocytes # 0.6 K/mcL (0.6-4.6); Lymphocytes % 3.4 %; Mean Corpuscular HGB Conc 33.6 g/dL (31.6-35.5); Mean Corpuscular Volume 95.3 fL (83.0-100.0); Monocytes # 0.4 K/mcL (0.0-1.3); Monocytes % 2.3 %; Neutrophils # 16.4 K/mcL (1.6-8.9); Platelet Count 366 K/mcL (140-400); Red Blood Count 4.25 M/mcL (3.82-4.97); Segmented Neutrophils % 93.3 %
--- NOTE | 2017-03-14 14:39 | Emergency Department Note ---
START Narrative - START START: I examined this patient and my medical decision-making was reviewed with the BOTANY TECHNICIAN/PA/Advanced Practice Nurse/Resident Physician. I agree with the documented findings, disposition and treatment plan as described except to the extent set forth below. ED attending: Patient's emergency medicine resident Dr. PACHECO. Please see copy of this note for H&P evaluation and management and ED disposition. We both had independent [id number] time in contact with this patient. Briefly: A 37-year-old female history of [place]'s disease by EMS for nausea vomiting and epigastric pain. Patient states she has her "addisonian crisis" with these identical symptoms. In 2013 she had 9 ER visits in 2015 she had 6 admitting decreasing ever since. She has not had any regular endocrinology follow-ups. Denies fever, chills, shortness breath, chest pain, photophobia, ill contacts, exotic foods or recent travel. Denies vaginal discharge or dysuria. Sharp epigastric pain is 9 out of 10. Patient received 1 L IV normal saline bolus 100 mg of IV Solu-Cortef 1 mg IV Dilaudid 25 mg of IV Phenergan. Patient has screening labs including lipase and random cortisol level. Urine is urinalysis is pending as well. Patient is feeling more comfortable after medicine and IV fluids. Provided 30 minutes of critical care services to this patient. She came in hypertensive and her blood pressure never got low. Disposition pending
[2017-03-14 14:55] LABS: Alanine Aminotransferase 19 Units/L (0-55); Albumin 3.8 g/dL (3.5-5.0); Albumin/Globulin Ratio 1.1 (1.1-2.2); Alkaline Phosphatase 73 Units/L (38-126); Aspartate Amino Transferase 19 Units/L (5-34); BUN/Creatinine Ratio 15 (6-26); Bilirubin,Total 0.6 mg/dL (0.2-1.2); Blood Urea Nitrogen 10 mg/dL (7-20); Calcium 8.8 mg/dL (8.6-10.8); Carbon Dioxide 21 mEq/L (19-29); Chloride 108 mEq/L (98-109); Globulin 3.5 g/dL (2.4-3.5); Glucose 120 mg/dL (70-99); Osmolality,Calculated 288 (280-300); Potassium 3.7 mEq/L (3.5-4.5); Sodium 139 mEq/L (136-145); Total Protein 7.3 g/dL (6.0-8.3); eGFR For African Americans > 60 (> 60); eGFR For Non-African Americans > 60 (> 60)
[2017-03-14 14:59] LABS: Lipase < 10 Units/L (8-78)
[2017-03-14] MEDS ORDERED: Ondansetron 4 MG/2 ML VIAL IVP ONE ×2 (15:55→19:02)
[2017-03-14 16:12] LABS: Bilirubin,Urine Negative (Negative); Blood,Urine Negative (Negative); Clarity,Urine Cloudy (Clear); Color,Urine Yellow (Yellow); Glucose,Urine (UA) Normal (Normal); Ketones,Urine 80 mg/dL (Negative); Leukocyte Esterase,Urine Small (Negative); Nitrite,Urine Negative (Negative); Protein,Urine Trace mg/dL (Neg-Trace); Specific Gravity,Urine 1.017 (1.010-1.025); Urobilinogen,Urine Normal (Normal)
[2017-03-14 16:14] LABS: Bacteria,Urine Many per hpf (None-Few); Hyaline Casts,Urine None Seen per lpf (None-Few); Squamous Epithelial Cell,Urine Many per lpf (None-Few)
[2017-03-14 16:36] LABS: RBC,Urine 0-3 per hpf (0-3)
[2017-03-14] MEDS ORDERED: Naloxone 0.4 MG/ML INJ IVP PRN (20:46)
[2017-03-14] MEDS ORDERED: Ondansetron 4 MG/2 ML VIAL IVP PRN (20:46)
[2017-03-14] MEDS ORDERED: Acetaminophen 325 MG TABLET PO PRN (20:46)
[2017-03-14] MEDS ORDERED: Pantoprazole 40 MG VIAL IVP ONE (20:49)
--- NOTE | 2017-03-14 20:53 | Internal Med History&Physical ---
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 She does not show evidence of hypotension or electrolyte abnormalities typical of decompensated [place]'s disease. (2) Intractable nausea and vomiting Current visit: No Status: Resolved Possibly secondary to [place]'s disease versus acute gastroenteritis Supportive care with IV fluids, will replete electrolytes as needed, IV Zofran and Phenergan for nausea. IV Dilaudid for severe abdominal pain. Clear liquid diet and advance as tolerated. She is at high risk for morbidity mortality and complications due to treatment with IV opioids. Qualifiers: Vomiting type: unspecified Qualified Code(s): R11.2 - Nausea with vomiting , unspecified (3) GERD (gastroesophageal reflux disease) Current visit: No Status: Acute IV Protonix. We will switch to oral tomorrow. Qualifiers: Esophagitis presence: esophagitis presence not specified Qualified Code(s) : K21.9 - Gastro-esophageal reflux disease without esophagitis (4) DVT prophylaxis Current visit: No Status: Acute Encourage ambulation. No pharmacological prophylaxis needed patient being fully ambulatory. (5) Tobacco abuse Current visit: No Status: Chronic I have advised smoking cessation. We will provide nicotine replacement therapy. Internal Medicine - H&P: HPI Chief complaint: Nausea and vomiting Admitted From: Home History of present illness: Ms. Cronin is a 37 year old female with past medical history of Corral's disease who presented to the hospital with sudden onset intractable nausea and nonbloody vomiting. She had multiple episodes of vomiting associated with epigastric abdominal pain, initially food contents and then just dry heaving. Her symptoms do not appear to improve with her usual antiemetics. She presented to the hospital where her initial workup was unremarkable. She was treated with fluids and multiple doses of Zofran and she continued to dry heave. She was referred for admission. A 10 point review of systems was negative except for episodes of nausea and vomiting as above secondary to [place]'s disease. Family history positive for lung cancer in the patient's father. Social history: Patient smokes half a pack a day, uses marijuana occasionally, denies alcohol and and IV drug use. Past Med Surg Social Fam HX - Past Medical History Medical history: GERD, other Psychiatric history: previous psychiatric hospitalization, anxiety, depression, panic disorder, prior suicide attempt - Past Surgical History Surgical History: cholecystectomy, - Social History Smoking Status: Current every day smoker Smokeless Tobacco Status: No Alcohol use: occasionally Drug use: marijuana - Family History Mother Living Status: Still Living Hx Family Cardiac Disorders: Yes (Open Heart) Hx Family Respiratory Disorders: Yes (COPD) Hx Family GI Disorders: No Hx Family Endocrine Disorder: Yes (DM) Hx Family Neuromuscular Disorders: No Hx Family Neurologic Disorders: No Hx Family HEENT Disorders: No Hx Family Autoimmune Disorders: No Father Living Status: Hx Family Respiratory Disorders: Yes Hx Family Cancer: Yes (Lung Ca) Internal Medicine - H&P: Meds Pantoprazole Sodium [Protonix] 40 mg PO DAILY 04/06/16 [History] Aspirin 81 mg PO DAILY #30 tab.chew 04/17/16 [Rx] Hydrocortisone [Cortef] 20 mg PO DAILY 09/25/16 [History] Ondansetron ODT [Zofran ODT] 4 mg PO Q6H PRN #20 tab.rapdis 09/27/16 [Rx] Promethazine [Phenergan] 25 mg PO Q8HR PRN 03/14/17 [History] Allergies No Known Allergies Allergy (Verified 03/14/17 18:35) All Systems PM: A 10-system review of systems was performed and is negative for pertinent findings except as documented above in the HPI. - Constitutional Vitals: Temp Pulse Resp BP Pulse Ox 98.1 F 93 18 109/75 96 03/14/17 20:36 03/14/17 20:36 03/14/17 20:36 03/14/17 20:36 03/14/17 20:36 General appearance: Present: A&O X 3 - Respiratory Respiratory exam: Present: CTAB. Absent: accessory muscle use, rales, rhonchi, wheezes - Cardiovascular Cardiovascular exam: Present: RRR, +S1, +S2. Absent: diastolic murmur, gallop, rubs, systolic murmur - GI/Abdominal GI/Abdominal exam: Present: normal bowel sounds, soft, no peritoneal signs. Absent: distended, tenderness - Extremities Exam Extremities exam: Present: warm, radial pulses palpable and symetrical. Absent : calf tenderness, cyanotic, pedal edema - Neurological Exam Neurological exam: Present: CN II-XII intact, oriented X3, no focal deficits. Absent: pronater drift, facial droop, speech deficit - Skin Skin exam: Present: dry, intact Internal Med - H&P Results - Labs CBC & Chem 7: 03/14/17 14:31 03/14/17 14:31
[2017-03-14] MEDS: *HR* HYDROmorphone (PF) 1 MG/ML SYRINGE IVP PRN (22:13)
[2017-03-14] MEDS: Nicotine 21 MG PATCH.TD24 TD SCH (22:13)
[2017-03-14] MEDS: 0.9 % Sodium Chloride 1,000 ML IVC SCH (22:13)
[2017-03-14] MEDS: Hydrocortisone 10 MG TABLET PO SCH (22:28)
[2017-03-15] MEDS: *HR* HYDROmorphone (PF) 1 MG/ML SYRINGE IVP PRN ×5 (02:40→21:53)
[2017-03-15 05:24] LABS: Basophils % 0.2 %; Eosinophils % 0.1 %; Hematocrit 39.3 % (35.3-44.9); Immature Granulocytes % 0.6 % (0-4); Lymphocytes # 2.2 K/mcL (0.6-4.6); Lymphocytes % 12.3 %; Mean Corpuscular HGB Conc 33.1 g/dL (31.6-35.5); Mean Corpuscular Hemoglobin 32.7 pg (28.0-33.3); Mean Platelet Volume 10.2 fL (9.4-12.4); Monocytes # 1.1 K/mcL (0.0-1.3); Monocytes % 6.2 %; Neutrophils # 14.5 K/mcL (1.6-8.9); Platelet Count 371 K/mcL (140-400); Red Blood Count 3.97 M/mcL (3.82-4.97); Red Cell Distribution Width 12.4 % (11.5-14.5); Segmented Neutrophils % 80.6 %
[2017-03-15 05:46] LABS: BUN/Creatinine Ratio 8 (6-26); Blood Urea Nitrogen 6 mg/dL (7-20); Calcium 8.3 mg/dL (8.6-10.8); Carbon Dioxide 19 mEq/L (19-29); Chloride 109 mEq/L (98-109); Glucose 106 mg/dL (70-99); Magnesium 1.9 mg/dL (1.6-2.6); Osmolality,Calculated 286 (280-300); Potassium 3.1 mEq/L (3.5-4.5); Sodium 139 mEq/L (136-145); eGFR For African Americans > 60 (> 60); eGFR For Non-African Americans > 60 (> 60)
[2017-03-15] MEDS: 0.9 % Sodium Chloride 1,000 ML IVC SCH ×2 (06:26→12:27)
[2017-03-15] MEDS: Nicotine 21 MG PATCH.TD24 TD SCH (08:33)
[2017-03-15] MEDS: Aspirin 81 MG TAB.CHEW PO SCH (08:33)
[2017-03-15] MEDS: Hydrocortisone 10 MG TABLET PO SCH (08:33)
--- NOTE | 2017-03-15 13:06 | Internal Med Progress Note ---
<Irwin Olmedo - Last Filed: 03/15/17 17:49> Date of Encounter: 03/15/17 - Constitutional Vitals: Temp Pulse Resp BP Pulse Ox 98.5 F 78 16 110/72 98 03/15/17 15:19 03/15/17 15:19 03/15/17 15:19 03/15/17 15:19 03/15/17 15:19 Internal Medicine: Result - Labs CBC & Chem 7: 03/15/17 05:04 03/15/17 05:04 Labs: Short CBC 03/15/17 Range/Units 05:04 WBC 17.9 H (4.3-11.1) K/mcL Hgb 13.0 (11.5-15.4) g/dL Hct 39.3 (35.3-44.9) % Plt Count 371 (140-400) K/mcL Neutrophils # 14.5 H (1.6-8.9) K/mcL BMP 03/15/17 05:04 Sodium 139 Potassium 3.1 L Chloride 109 Carbon Dioxide 19 BUN 6 L Creatinine 0.74 Glucose 106 H Calcium 8.3 L Consult Discharge Plan - Plan Referrals: Joe Engel Jr, CORRECTIVE THERAPY AIDE TEACHER [Advanced Practice Nurse] - 03/25/17 4:30 pm ( ) - Attending Attestation I examined this patient and my medical decision-making was reviewed with the Resident Physician. I agree with the documented findings, disposition and treatment plan as described except to the extent set forth below. <Solomon Newsome - Last Filed: 03/15/17 18:10> Date of Encounter: 03/15/17 Time of Encounter: 09:00 - Assessment and plan (1) Intractable vomiting with nausea Current Visit: Yes Status: Acute Assessment and plan: -Unknown etiology, possibly stefany's ds vs complicated UTI -Sudden onset, 1 day history, woke from sleep -Patient has WBC of 17.9, afebrile, normotensive -Patient is no longer vomiting after fluids, zofran and phenergan -We have concerns for sepsis, see UTI Qualifiers: Vomiting type: unspecified Qualified Code(s): R11.2 - Nausea with vomiting , unspecified (2) UTI (urinary tract infection) Current Visit: Yes Status: Acute Assessment and plan: -Positive leukocyte esterase, culture pending. WBC 17.9 -Patient admits to mild back pain, but denies urinary symptoms -We will order blood cultures, urine culture, CT abdomen/pelvis to rule out complicated UTI -Patient is on fluids, and is keeping food and liquids down. -We will continue to monitor this high risk patient. 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 -K+ 3.1, we will replace. -Dizziness and hypotension not present. There is no hyperpigmentation -We will continue to monitor. (4) GERD (gastroesophageal reflux disease) Current Visit: No Status: Acute Assessment and plan: -Symptoms improved on IV Protonix -Continue to watch, switch to PO in the morning if able. Qualifiers: Esophagitis presence: esophagitis presence not specified Qualified Code(s) : K21.9 - Gastro-esophageal reflux disease without esophagitis (5) DVT prophylaxis Current Visit: No Status: Acute Assessment and plan: Patient is ambulatory, however if she becomes unable to walk we will consider heparin. - Subjective Interval history: The patient is resting comfortably in bed, and states that her abdominal pain has improved some, but is still present. She has not vomited in several hours, and has been able to hold food down - Constitutional Vitals: Temp Pulse Resp BP Pulse Ox 98.1 F 86 16 119/72 98 03/15/17 11:00 03/15/17 11:00 03/15/17 11:00 03/15/17 11:00 03/15/17 11:00 General appearance: Present: cooperative, A&O X 3, pleasant - Head Head exam: Present: atraumatic, normocephalic - Eye Eye exam: Present: PERRL, conjuntiva pink, sclera anicteric Pupils: Present: PERRL - Neck Neck exam general surgery: Present: supple, trachea midline. Absent: lymphadenopathy - Respiratory Respiratory exam: Present: CTAB. Absent: accessory muscle use, rales, rhonchi, wheezes - Cardiovascular Cardiovascular exam: Present: RRR, +S1, +S2. Absent: diastolic murmur, gallop, rubs, systolic murmur - GI/Abdominal GI/Abdominal exam: Present: hyperactive bowel sounds, soft, tenderness ( Tenderness across upper abdomen, most severe at epigastric region. ), no peritoneal signs. Absent: distended - Extremities Exam Extremities exam: Present: warm, radial pulses palpable and symetrical. Absent : calf tenderness, cyanotic, pedal edema - Neurological Exam Neurological exam: Present: CN II-XII intact, oriented X3, no focal deficits. Absent: pronater drift, facial droop, speech deficit - Skin Skin exam: Present: dry, intact Internal Medicine: Result - Labs CBC & Chem 7: 03/15/17 05:04 03/15/17 05:04 Labs: Short CBC 03/15/17 Range/Units 05:04 WBC 17.9 H (4.3-11.1) K/mcL Hgb 13.0 (11.5-15.4) g/dL Hct 39.3 (35.3-44.9) % Plt Count 371 (140-400) K/mcL Neutrophils # 14.5 H (1.6-8.9) K/mcL BMP 03/15/17 05:04 Sodium 139 Potassium 3.1 L Chloride 109 Carbon Dioxide 19 BUN 6 L Creatinine 0.74 Glucose 106 H Calcium 8.3 L
[2017-03-16] MEDS: *HR* HYDROmorphone (PF) 1 MG/ML SYRINGE IVP PRN ×6 (01:54→22:21)
[2017-03-16] MEDS: 0.9 % Sodium Chloride 1,000 ML IVC SCH ×4 (03:32→20:58)
[2017-03-16] MEDS: *HR* Promethazine 25 MG/ML VIAL IVP PRN (03:36)
[2017-03-16 04:51] LABS: Basophils # 0.1 K/mcL (0.0-0.2); Basophils % 0.5 %; Eosinophils # 0.1 K/mcL (0.0-0.6); Eosinophils % 0.7 %; Hematocrit 36.7 % (35.3-44.9); Hemoglobin 12.2 g/dL (11.5-15.4); Immature Granulocytes % 0.3 % (0-4); Lymphocytes # 3.5 K/mcL (0.6-4.6); Lymphocytes % 30.6 %; Mean Corpuscular HGB Conc 33.2 g/dL (31.6-35.5); Mean Corpuscular Hemoglobin 32.4 pg (28.0-33.3); Mean Corpuscular Volume 97.3 fL (83.0-100.0); Mean Platelet Volume 10.6 fL (9.4-12.4); Monocytes # 1.3 K/mcL (0.0-1.3); Monocytes % 11.3 %; Neutrophils # 6.5 K/mcL (1.6-8.9); Platelet Count 339 K/mcL (140-400); Red Blood Count 3.77 M/mcL (3.82-4.97); Red Cell Distribution Width 12.2 % (11.5-14.5); Segmented Neutrophils % 56.6 %
[2017-03-16 05:35] LABS: BUN/Creatinine Ratio 7 (6-26); Calcium 8.7 mg/dL (8.6-10.8); Carbon Dioxide 20 mEq/L (19-29); Chloride 110 mEq/L (98-109); Glucose 84 mg/dL (70-99); Osmolality,Calculated 286 (280-300); Potassium 3.6 mEq/L (3.5-4.5); Sodium 140 mEq/L (136-145); eGFR For African Americans > 60 (> 60); eGFR For Non-African Americans > 60 (> 60)
[2017-03-16 05:36] LABS: Blood Urea Nitrogen 4 mg/dL (7-20)
[2017-03-16] MEDS: *HR* Heparin 5,000 UNIT/ML VIAL SQ SCH ×3 (05:59→20:59)
--- NOTE | 2017-03-16 07:00 | Internal Med Progress Note ---
<Irwin Olmedo - Last Filed: 03/16/17 13:21> Date of Encounter: 03/16/17 - Constitutional Vitals: Temp Pulse Resp BP Pulse Ox 98.2 F 73 14 142/94 97 03/16/17 10:00 03/16/17 10:00 03/16/17 10:00 03/16/17 10:00 03/16/17 10:00 Internal Medicine: Result - Labs CBC & Chem 7: 03/16/17 04:09 03/16/17 04:09 Labs: Short CBC 03/16/17 Range/Units 04:09 WBC 11.5 H (4.3-11.1) K/mcL Hgb 12.2 (11.5-15.4) g/dL Hct 36.7 (35.3-44.9) % Plt Count 339 (140-400) K/mcL Neutrophils # 6.5 (1.6-8.9) K/mcL BMP 03/16/17 04:09 Sodium 140 Potassium 3.6 Chloride 110 H Carbon Dioxide 20 BUN 4 L Creatinine 0.60 Glucose 84 Calcium 8.7 - Impressions Impressions Abdomen/Pelvis CT 03/15/17 17:46 IMPRESSION: Small to moderate amount of free fluid in pelvis and peripherally enhancing 1 cm left adnexal cyst, likely physiologic. D/ / Latoya Castellon Cha, MD / Latoya Castellon Cha, MD Interpreting Provider: aLtoya Castellon Cha, MD Consult Discharge Plan - Plan Referrals: Joe Engel Jr, FEATHER SEPARATOR [Advanced Practice Nurse] - 03/25/17 4:30 pm ( ) - Attending Attestation I examined this patient and my medical decision-making was reviewed with the Resident Physician. I agree with the documented findings, disposition and treatment plan as described except to the extent set forth below. <Solomon Newsome - Last Filed: 03/16/17 14:16> Date of Encounter: 03/16/17 Time of Encounter: 08:10 - Assessment and plan (1) Intractable vomiting with nausea Current Visit: Yes Status: Resolved Assessment and plan: -Unknown etiology, possibly stefany's ds vs complicated UTI -IV Ceftriaxone -WBC 11.5, afebrile, normotensive -No nausea, vomiting. -We will continue to provide anti-emetics and monitor the patient. 03/15/17 -Unknown etiology, possibly stefany's ds vs complicated UTI -Sudden onset, 1 day history, woke from sleep -Patient has WBC of 17.9, afebrile, normotensive -Patient is no longer vomiting after fluids, zofran and phenergan -We have concerns for sepsis, see UTI Qualifiers: Vomiting type: unspecified Qualified Code(s): R11.2 - Nausea with vomiting , unspecified (2) UTI (urinary tract infection) Current Visit: Yes Status: Acute Assessment and plan: -Positive leukocyte esterase, culture pending, preliminary no growth. -IV Ceftriaxone -WBC 11.5, afebrile, normotensive -No nausea, vomiting, or urinary symptoms. Denies frequency, dysuria, or abdominal or back pain. -CT is negative for acute intra-abdominal process. There is some free fluid in the pelvis, but not acute pathology. -Patient remains on IV Fluids, ceeftriaxone, anti-emetics 03/15/17 -Positive leukocyte esterase, culture pending. WBC 17.9 -Patient admits to mild back pain, but denies urinary symptoms -We will order blood cultures, urine culture, CT abdomen/pelvis to rule out complicated UTI -Patient is on fluids, and is keeping food and liquids down. -We will continue to monitor this high risk patient. 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 There is no hyperpigmentation -We will continue to monitor. 03/15/17 -chronic -Patient on hydrocortisone. -K+ 3.1, we will replace. -Dizziness and hypotension not present. There is no hyperpigmentation -We will continue to monitor. (4) GERD (gastroesophageal reflux disease) Current Visit: No Status: Acute Assessment and plan: 03/15/17 -Symptoms improved on IV Protonix -Continue to watch, switch to PO in the morning if able. Qualifiers: Esophagitis presence: esophagitis presence not specified Qualified Code(s) : K21.9 - Gastro-esophageal reflux disease without esophagitis (5) DVT prophylaxis Current Visit: No Status: Acute Assessment and plan: Patient is ambulatory, however if she becomes unable to walk we will consider heparin. - Subjective Interval history: The patient is comfortable in bed at the time of examination. She says that she is still having mild pain in her stomach, primarily at the epigastric region. She said it isn't as severe. - Constitutional Vitals: Temp Pulse Resp BP Pulse Ox 98.6 F 72 14 130/88 96 03/16/17 04:10 03/16/17 04:10 03/16/17 04:10 03/16/17 04:10 03/16/17 04:10 General appearance: Present: cooperative, A&O X 3, pleasant Exam: - Head Head exam: Present: atraumatic, normocephalic - Eye Eye exam: Present: PERRL, conjuntiva pink, sclera anicteric Pupils: Present: PERRL - Neck Neck exam: Present: supple, trachea midline. Absent: lymphadenopathy - Respiratory Respiratory exam: Present: CTAB. Absent: accessory muscle use, rales, rhonchi, wheezes - Cardiovascular Cardiovascular exam: Present: RRR, +S1, +S2. Absent: diastolic murmur, gallop, rubs, systolic murmur - GI/Abdominal GI/Abdominal exam: Present: hyperactive bowel sounds, soft, tenderness ( Tenderness across upper abdomen, most severe at epigastric region. Mild tenderness in pelvis), no peritoneal signs. Absent: distended - Extremities Exam Extremities exam: Present: warm, radial pulses palpable and symmetrical. Absent : calf tenderness, cyanotic, pedal edema - Neurological Exam Neurological exam: Present: CN II-XII intact, oriented X3, no focal deficits. Absent: pronater drift, facial droop, speech deficit - Skin Skin exam: Present: dry, intact Internal Medicine: Result - Labs CBC & Chem 7: 03/16/17 04:09 03/16/17 04:09 Labs: Short CBC 03/16/17 Range/Units 04:09 WBC 11.5 H (4.3-11.1) K/mcL Hgb 12.2 (11.5-15.4) g/dL Hct 36.7 (35.3-44.9) % Plt Count 339 (140-400) K/mcL Neutrophils # 6.5 (1.6-8.9) K/mcL BMP 03/15/17 03/16/17 05:04 04:09 Sodium 139 140 Potassium 3.1 L 3.6 Chloride 109 110 H Carbon Dioxide 19 20 BUN 6 L 4 L Creatinine 0.74 0.60 Glucose 106 H 84 Calcium 8.3 L 8.7 - Impressions Impressions Abdomen/Pelvis CT 03/15/17 17:46 IMPRESSION: Small to moderate amount of free fluid in pelvis and peripherally enhancing 1 cm left adnexal cyst, likely physiologic. D/ / Latoya Castellon Cha, MD / Latoya Castellon Cha, MD Interpreting Provider: Latoya Castellon Cha, MD
[2017-03-16] MEDS: Hydrocortisone 10 MG TABLET PO SCH (08:38)
[2017-03-16] MEDS: Aspirin 81 MG TAB.CHEW PO SCH (08:38)
[2017-03-16] MEDS: Nicotine 21 MG PATCH.TD24 TD SCH (08:38)
[2017-03-16] MEDS ORDERED: Hydrocortisone Sodium Succ 100 MG/2 ML VIAL IVP ONE (08:54)
[2017-03-17] MEDS: *HR* HYDROmorphone (PF) 1 MG/ML SYRINGE IVP PRN ×5 (02:31→19:51)
[2017-03-17 05:23] LABS: Basophils # 0.1 K/mcL (0.0-0.2); Basophils % 0.5 %; Eosinophils # 0.1 K/mcL (0.0-0.6); Eosinophils % 0.4 %; Hematocrit 36.3 % (35.3-44.9); Hemoglobin 12.2 g/dL (11.5-15.4); Lymphocytes # 3.6 K/mcL (0.6-4.6); Mean Corpuscular HGB Conc 33.6 g/dL (31.6-35.5); Mean Corpuscular Hemoglobin 32.3 pg (28.0-33.3); Mean Platelet Volume 11.6 fL (9.4-12.4); Monocytes # 1.2 K/mcL (0.0-1.3); Monocytes % 10.3 %; Neutrophils # 6.3 K/mcL (1.6-8.9); Platelet Count 257 K/mcL (140-400); Red Blood Count 3.78 M/mcL (3.82-4.97); Segmented Neutrophils % 55.8 %
[2017-03-17 05:33] LABS: BUN/Creatinine Ratio 6 (6-26); Calcium 9.3 mg/dL (8.6-10.8); Carbon Dioxide 24 mEq/L (19-29); Chloride 108 mEq/L (98-109); Glucose 104 mg/dL (70-99); Osmolality,Calculated 287 (280-300); Sodium 140 mEq/L (136-145); eGFR For African Americans > 60 (> 60); eGFR For Non-African Americans > 60 (> 60)
[2017-03-17 05:35] LABS: Blood Urea Nitrogen 4 mg/dL (7-20); Potassium 4.9 mEq/L (3.5-4.5)
[2017-03-17 05:52] LABS: Large Platelets Present (Not Present); Platelet Estimate Normal (Normal)
[2017-03-17] MEDS: *HR* Heparin 5,000 UNIT/ML VIAL SQ SCH ×3 (06:34→21:11)
[2017-03-17] MEDS: 0.9 % Sodium Chloride 1,000 ML IVC SCH ×3 (06:34→21:10)
--- NOTE | 2017-03-17 07:24 | Internal Med Progress Note ---
<Solomon Newsome - Last Filed: 03/17/17 07:37> Date of Encounter: 03/17/17 Time of Encounter: 07:37 - Assessment and plan (1) Intractable vomiting with nausea Current Visit: Yes Status: Resolved Assessment and plan: Unknown etiology, possibly stefany's ds vs complicated UTI -IV Ceftriaxone -WBC 11.3, afebrile, normotensive -Patient is still having significant pain and nausea at times between doses of medication. -I will give her a GI Cocktail to see if it offers any relief. She has had a negative CT of the abdomen and pelvis 03/16/17 Unknown etiology, possibly stefany's ds vs complicated UTI -IV Ceftriaxone -WBC 11.5, afebrile, normotensive -No nausea, vomiting. -We will continue to provide anti-emetics and monitor the patient. Qualifiers: Vomiting type: unspecified Qualified Code(s): R11.2 - Nausea with vomiting , unspecified (2) UTI (urinary tract infection) Current Visit: Yes Status: Acute Assessment and plan: -Positive leukocyte esterase, culture pending, preliminary no growth. -IV Ceftriaxone -WBC 11.3, afebrile, normotensive -Patient is having nausea. She also admits to difficulty urinating, and feeling of incomplete voiding. It is not painful. -I will get a UA 03/16/17 -Positive leukocyte esterase, culture pending, preliminary no growth. -IV Ceftriaxone -WBC 11.5, afebrile, normotensive -No nausea, vomiting, or urinary symptoms. Denies frequency, dysuria, or abdominal or back pain. -CT is negative for acute intra-abdominal process. There is some free fluid in the pelvis, but not acute pathology. 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 There is no hyperpigmentation -We will continue to monitor. 03/16/17 -Patient recieved stress dose of hydrocortisone last night -K+ up o 3.6, we will give maintenance dose -Dizziness and hypotension not present. There is no hyperpigmentation -We will continue to monitor. (4) GERD (gastroesophageal reflux disease) Current Visit: No Status: Acute Assessment and plan: -Patient is having increased epigastric pain in comparison to yesterday -Gave GI cocktail -Will continue to monitor 03/16/17 -Symptoms improved on IV Protonix -Continue to watch, switch to PO in the morning if able. Qualifiers: Esophagitis presence: esophagitis presence not specified Qualified Code(s) : K21.9 - Gastro-esophageal reflux disease without esophagitis (5) DVT prophylaxis Current Visit: No Status: Acute Assessment and plan: Patient is ambulatory, however if she becomes unable to walk we will consider heparin. - Subjective Interval history: The patient is lying in bed at the time of the examination. She states that she' s still experiencin abdominal pain, possibly worse than previous. She also says that she's having some nausea again. She says the medicines help, but when they begin to wear off she again feels very bad. - Constitutional Vitals: Temp Pulse Resp BP Pulse Ox 97.9 F 60 13 129/79 98 03/17/17 07:16 03/17/17 07:16 03/17/17 07:16 03/17/17 07:16 03/17/17 07:16 General appearance: Present: cooperative, A&O X 3, pleasant Exam: - Head Head exam: Present: atraumatic, normocephalic - Eye Eye exam: Present: PERRL, conjuntiva pink, sclera anicteric Pupils: Present: PERRL - Neck Neck exam: Present: supple, trachea midline. Absent: lymphadenopathy - Respiratory Respiratory exam: Present: CTAB. Absent: accessory muscle use, rales, rhonchi, wheezes - Cardiovascular Cardiovascular exam: Present: RRR, +S1, +S2. Absent: diastolic murmur, gallop, rubs, systolic murmur - GI/Abdominal GI/Abdominal exam: Present: hyperactive bowel sounds, soft, tenderness ( Tenderness across upper abdomen, most severe at epigastric region. Mild tenderness in pelvis), no peritoneal signs. Absent: distended - Extremities Exam Extremities exam: Present: warm, radial pulses palpable and symmetrical. Absent : calf tenderness, cyanotic, pedal edema - Neurological Exam Neurological exam: Present: CN II-XII intact, oriented X3, no focal deficits. Absent: pronater drift, facial droop, speech deficit - Skin Skin exam: Present: dry, intact Internal Medicine: Result - Labs CBC & Chem 7: 03/17/17 04:34 03/17/17 04:34 Labs: Short CBC 03/17/17 Range/Units 04:34 WBC 11.3 H (4.3-11.1) K/mcL Hgb 12.2 (11.5-15.4) g/dL Hct 36.3 (35.3-44.9) % Plt Count 257 (140-400) K/mcL Neutrophils # 6.3 (1.6-8.9) K/mcL BMP 03/17/17 04:34 Sodium 140 Potassium 4.9 H D Chloride 108 Carbon Dioxide 24 BUN 4 L Creatinine 0.69 Glucose 104 H Calcium 9.3 Consult Discharge Plan - Plan Referrals: Joe Engel Jr, WOUND CARE RN [Advanced Practice Nurse] - 03/25/17 4:30 pm ( ) <Irwin Olmedo - Last Filed: 03/17/17 17:18> Date of Encounter: 03/17/17 - Constitutional Vitals: Temp Pulse Resp BP Pulse Ox 98 F 65 15 152/87 100 03/17/17 17:11 03/17/17 17:11 03/17/17 17:11 03/17/17 17:11 03/17/17 17:11 Internal Medicine: Result - Labs CBC & Chem 7: 03/17/17 04:34 03/17/17 04:34 Labs: Short CBC 03/17/17 Range/Units 04:34 WBC 11.3 H (4.3-11.1) K/mcL Hgb 12.2 (11.5-15.4) g/dL Hct 36.3 (35.3-44.9) % Plt Count 257 (140-400) K/mcL Neutrophils # 6.3 (1.6-8.9) K/mcL BMP 03/17/17 04:34 Sodium 140 Potassium 4.9 H D Chloride 108 Carbon Dioxide 24 BUN 4 L Creatinine 0.69 Glucose 104 H Calcium 9.3 - Attending Attestation I examined this patient and my medical decision-making was reviewed with the Resident Physician. I agree with the documented findings, disposition and treatment plan as described except to the extent set forth below. We will continue antibiotics. Close monitoring of vital signs particularly blood pressure We will recheck labs tomorrow to monitor potassium
[2017-03-17] MEDS ORDERED: GI Cocktail 40 ML EACH PO ONE (07:35)
[2017-03-17] MEDS: Aspirin 81 MG TAB.CHEW PO SCH (08:38)
[2017-03-17] MEDS: Hydrocortisone 10 MG TABLET PO SCH (08:39)
[2017-03-17] MEDS: Nicotine 21 MG PATCH.TD24 TD SCH (08:39)
[2017-03-17] MEDS: *HR* Promethazine 25 MG/ML VIAL IVP PRN (08:57)
[2017-03-17 18:07] LABS: Bilirubin,Urine Negative (Negative); Blood,Urine Negative (Negative); Clarity,Urine Clear (Clear); Color,Urine Yellow (Yellow); Glucose,Urine (UA) Normal (Normal); Ketones,Urine Negative (Negative); Leukocyte Esterase,Urine Trace (Negative); Nitrite,Urine Negative (Negative); PH,Urine 7.5 pH Units (5.0-8.0); Protein,Urine Negative (Neg-Trace); Specific Gravity,Urine 1.007 (1.010-1.025); Urobilinogen,Urine Normal (Normal)
[2017-03-17 18:09] LABS: Bacteria,Urine None Seen per hpf (None-Few); Hyaline Casts,Urine None Seen per lpf (None-Few); RBC,Urine 0-3 per hpf (0-3); Squamous Epithelial Cell,Urine Many per lpf (None-Few); WBC,Urine 0-3 per hpf (0-3)
[2017-03-18] MEDS: *HR* Promethazine 25 MG/ML VIAL IVP PRN ×2 (01:30→15:10)
[2017-03-18] MEDS: *HR* HYDROmorphone (PF) 1 MG/ML SYRINGE IVP PRN ×6 (04:17→21:18)
[2017-03-18] MEDS: 0.9 % Sodium Chloride 1,000 ML IVC SCH ×2 (04:17→17:10)
[2017-03-18] MEDS: *HR* Heparin 5,000 UNIT/ML VIAL SQ SCH ×3 (05:28→21:18)
[2017-03-18 06:01] LABS: BUN/Creatinine Ratio 8 (6-26); Calcium 8.7 mg/dL (8.6-10.8); Carbon Dioxide 26 mEq/L (19-29); Chloride 108 mEq/L (98-109); Glucose 79 mg/dL (70-99); Osmolality,Calculated 286 (280-300); Sodium 140 mEq/L (136-145); eGFR For African Americans > 60 (> 60); eGFR For Non-African Americans > 60 (> 60)
[2017-03-18 06:02] LABS: Potassium 3.7 mEq/L (3.5-4.5)
[2017-03-18 06:03] LABS: Blood Urea Nitrogen 5 mg/dL (7-20)
[2017-03-18 06:05] LABS: Basophils # 0.1 K/mcL (0.0-0.2); Basophils % 0.7 %; Eosinophils # 0.1 K/mcL (0.0-0.6); Eosinophils % 1.2 %; Hematocrit 39.3 % (35.3-44.9); Hemoglobin 13.1 g/dL (11.5-15.4); Immature Granulocytes % 0.5 % (0-4); Lymphocytes # 3.9 K/mcL (0.6-4.6); Lymphocytes % 37.7 %; Mean Corpuscular HGB Conc 33.3 g/dL (31.6-35.5); Mean Corpuscular Hemoglobin 31.8 pg (28.0-33.3); Mean Corpuscular Volume 95.4 fL (83.0-100.0); Mean Platelet Volume 10.7 fL (9.4-12.4); Monocytes # 1.1 K/mcL (0.0-1.3); Monocytes % 10.8 %; Neutrophils # 5.1 K/mcL (1.6-8.9); Platelet Count 392 K/mcL (140-400); Red Blood Count 4.12 M/mcL (3.82-4.97); Red Cell Distribution Width 11.9 % (11.5-14.5); Segmented Neutrophils % 49.1 %
[2017-03-18] MEDS: Nicotine 21 MG PATCH.TD24 TD SCH (08:14)
[2017-03-18] MEDS: Hydrocortisone 10 MG TABLET PO SCH (08:14)
[2017-03-18] MEDS: Aspirin 81 MG TAB.CHEW PO SCH (08:14)
--- NOTE | 2017-03-18 18:14 | Internal Med Progress Note ---
Date of Encounter: 03/18/17 Time of Encounter: 18:11 - Assessment and plan (1) UTI (urinary tract infection) Current Visit: Yes Status: Acute Assessment and plan: Patient is known to have Midland's disease. Admitted with worsening urinary symptoms. Stress dose of hydrocortisone was given. Patient was started on IV ceftriaxone. Completed 4 days of IV ceftriaxone. Blood cultures/urine culture: No growth Plan: Continue 1 more day of IV ceftriaxone. If patient feels better then she can go home tomorrow Qualifiers: Urinary tract infection type: acute cystitis Hematuria presence: without hematuria Qualified Code(s): N30.00 - Acute cystitis without hematuria (2) Intractable nausea and vomiting Current Visit: No Status: Resolved Assessment and plan: Her nausea and vomiting improved with the GI cocktail. There is no nausea or vomiting reported today. Qualifiers: Vomiting type: unspecified Qualified Code(s): R11.2 - Nausea with vomiting , unspecified (3) Addisons disease Current Visit: Yes Status: Acute Assessment and plan: Known to have Tico's disease. She follows up with roving winder from [facility]. Patient is keen to follow up with roving winder from this hospital. Plan Patient will need an appointment to follow up with endocrinology from this hospital upon discharge. (4) GERD (gastroesophageal reflux disease) Current Visit: No Status: Acute Assessment and plan: Stable Qualifiers: Esophagitis presence: esophagitis presence not specified Qualified Code(s) : K21.9 - Gastro-esophageal reflux disease without esophagitis - Subjective Interval history: Seen and examined. Chart reviewed. Patient is comfortably lying in bed. She still has occasional back pain. Patient denies any dysuria. - Constitutional Vitals: Temp Pulse Resp BP Pulse Ox 98.1 F 82 16 137/85 97 03/18/17 15:06 03/18/17 15:06 03/18/17 15:06 03/18/17 15:06 03/18/17 15:06 General appearance: Present: cooperative, A&O X 3, pleasant - Head Head exam: Present: atraumatic, normocephalic - Eye Eye exam: Present: PERRL, conjuntiva pink, sclera anicteric Pupils: Present: PERRL - Neck Neck exam general surgery: Present: supple, trachea midline. Absent: lymphadenopathy - Respiratory Respiratory exam: Present: CTAB. Absent: accessory muscle use, rales, rhonchi, wheezes - Cardiovascular Cardiovascular exam: Present: RRR, +S1, +S2. Absent: diastolic murmur, gallop, rubs, systolic murmur - GI/Abdominal GI/Abdominal exam: Present: normal bowel sounds, soft, no peritoneal signs. Absent: distended, tenderness - Extremities Exam Extremities exam: Present: warm, radial pulses palpable and symetrical. Absent : calf tenderness, cyanotic, pedal edema - Neurological Exam Neurological exam: Present: CN II-XII intact, oriented X3, no focal deficits. Absent: pronater drift, facial droop, speech deficit - Skin Skin exam: Present: dry, intact Internal Medicine: Result - Labs CBC & Chem 7: 03/18/17 05:13 03/18/17 05:13 Labs: Short CBC 03/18/17 Range/Units 05:13 WBC 10.3 (4.3-11.1) K/mcL Hgb 13.1 (11.5-15.4) g/dL Hct 39.3 (35.3-44.9) % Plt Count 392 D (140-400) K/mcL Neutrophils # 5.1 (1.6-8.9) K/mcL BMP 03/18/17 05:13 Sodium 140 Potassium 3.7 D Chloride 108 Carbon Dioxide 26 BUN 5 L Creatinine 0.65 Glucose 79 Calcium 8.7 Urine 03/17/17 Range/Units 18:00 Urine Color Yellow (Yellow) Urine Clarity Clear (Clear) Urine pH 7.5 (5.0-8.0) pH Units Ur Specific Pooler 1.007 L (1.010-1.025) Urine Protein Negative (Neg-Trace) mg/dL Urine Glucose (UA) Normal (Normal) mg/dL Consult Discharge Plan - Plan Referrals: Joe Engel Jr, PURCHASING BUYER [Advanced Practice Nurse] - 03/25/17 4:30 pm ( )
[2017-03-19] MEDS: *HR* HYDROmorphone (PF) 1 MG/ML SYRINGE IVP PRN ×2 (01:53→07:05)
[2017-03-19] MEDS: *HR* Promethazine 25 MG/ML VIAL IVP PRN (01:53)
[2017-03-19] MEDS: *HR* Heparin 5,000 UNIT/ML VIAL SQ SCH ×2 (05:31→13:58)
[2017-03-19] MEDS: 0.9 % Sodium Chloride 1,000 ML IVC SCH (05:31)
[2017-03-19] MEDS: Aspirin 81 MG TAB.CHEW PO SCH (07:40)
[2017-03-19] MEDS: Hydrocortisone 10 MG TABLET PO SCH (07:41)
[2017-03-19] MEDS: Nicotine 21 MG PATCH.TD24 TD SCH (07:41)
[2017-03-19] MEDS ORDERED: *HR* OxyCODONE Immed Rel 5 MG TABLET PO ONE (10:24)
[2017-03-19 11:00] VITALS: BP 120/76
--- NOTE | 2017-03-19 14:12 | Discharge Summary ---
Date of Encounter: 03/19/17 Time of Encounter: 08:30 - Discharge Diagnosis (1) UTI (urinary tract infection) Priority: Primary Status: Acute Comments: Now improved, urine cultures show no growth Qualifiers: Urinary tract infection type: acute cystitis Hematuria presence: without hematuria Qualified Code(s): N30.00 - Acute cystitis without hematuria (2) Intractable vomiting with nausea Priority: Primary Status: Resolved Comments: Now resolved Qualifiers: Vomiting type: unspecified Qualified Code(s): R11.2 - Nausea with vomiting , unspecified (3) GERD (gastroesophageal reflux disease) Priority: Secondary Status: Chronic Qualifiers: Esophagitis presence: esophagitis presence not specified Qualified Code(s) : K21.9 - Gastro-esophageal reflux disease without esophagitis (4) Addisons disease Priority: Secondary Status: Chronic Comments: Continue home medication, follow up with [facility] in [place] - Discharge Medications Prescriptions: Hydrocodone/Acetaminophen [Xodol 5-300 Tablet] 1 each PO Q6HR PRN #10 tablet PRN Reason: Severe Pain Amoxicillin/Clavulanate [Augmentin] 875 mg PO BIDWM 7 Days Nicotine Patch [Nicoderm] 21 mg TD DAILY #30 Home Medications: Pantoprazole Sodium [Protonix] 40 mg PO DAILY 04/06/16 [History] Aspirin 81 mg PO DAILY #30 tab.chew 04/17/16 [Rx] Hydrocortisone [Cortef] 20 mg PO DAILY 09/25/16 [History] Ondansetron ODT [Zofran ODT] 4 mg PO Q6H PRN #20 tab.rapdis 09/27/16 [Rx] Promethazine [Phenergan] 25 mg PO Q8HR PRN 03/14/17 [History] Amoxicillin/Clavulanate [Augmentin] 875 mg PO BIDWM 7 Days 03/19/17 [Rx] Hydrocodone/Acetaminophen [Xodol 5-300 Tablet] 1 each PO Q6HR PRN #10 tablet 09/04 [Rx] Nicotine Patch [Nicoderm] 21 mg TD DAILY #30 03/19/17 [Rx] Allergies/Adverse Reactions: Allergies No Known Allergies Allergy (Verified 03/14/17 18:35) Date of admission: 03/18/17 18:34 Primary care physician: Fouzia Crane MD Anticipated date of discharge: 03/19/17 - Patient Status Disposition: Home, Self-Care Condition: Good Functional capacity at discharge: independent ambulation Overall status at discharge: patient is progressing back to baseline - Discharge Instructions Follow Up With: Joe Engel Jr, CNP [Advanced Practice Nurse] - 03/25/17 4:30 pm ( ) - Diet and Activity Activity: increase activity as tolerated Diet: advance to your usual diet Hospital course: Ms. Cronin is a 37 year old female with past medical history of GERD, [place]' s disease and anxiety and depression. She presented to the ED with complaints of nausea and vomiting. Patient had multiple episodes of vomiting associated with epigastric abdominal pain. He was initially food content) followed by dry heaving. Patient is admitted for intractable nausea and vomiting. She was also found to have a UTI. She was started on Rocephin empirically. He was also on Protonix and IV Zofran. Urine cultures were negative and blood cultures are negative. Initial white count was elevated but is now back down to normal limits. Patient has been continued on hydrocortisone for her [place]' s disease. Potassium was replaced. Patient was otherwise asymptomatic. Patient does follow up with the [facility] at [place]. She states she will follow up after discharge. On the day of discharge patient states she feels better also go home. She had no acute events or complications during her stay in the hospital. She is ventilating well and tolerating oral diet well. She has been explained about her condition and plan of care. She understood and agreed. No unanswered questions. Patient is being discharged in a stable condition. Time spent discussing smoking cessation with patient: 3 to 10 minutes - Time Spent with Patient Total time spent providing and/or coordinating discharge services: Greater than 30 minutes - Constitutional Vitals: Temp Pulse Resp BP Pulse Ox 97.9 F 70 15 120/76 97 03/19/17 10:59 03/19/17 10:59 03/19/17 10:59 03/19/17 10:59 03/19/17 10:59 General appearance: Present: cooperative, A&O X 3, pleasant, no acute distress, answers questions appropriately - Head Head exam: Present: atraumatic - Eye Eye exam: Present: EOMI - ENT ENT exam: Present: mucous membranes moist - Neck Neck exam general surgery: Present: supple - Respiratory Respiratory exam: Present: CTAB. Absent: rales, rhonchi, stridor, wheezes, tachypnea - Cardiovascular Cardiovascular exam: Present: RRR, +S1, +S2 - GI/Abdominal GI/Abdominal exam: Present: soft, no peritoneal signs. Absent: distended, firm , guarding, rigid, tenderness - Extremities Exam Extremities exam: Present: radial pulses palpable and symetrical. Absent: cyanotic, pedal edema, tenderness - Neurological Exam Neurological exam: Present: alert, oriented X3, no focal deficits. Absent: facial droop, speech deficit
== END 2017-03-19 14:24 | disposition home or self-care (01) | DRG 463 ==
LOC: 3ANU 13:53 → EMEROO 13:53 → 3ANU 20:14
PROVIDERS: ADMIT Nurse Practitioner Family; ATTEND Internal Medicine

== ENCOUNTER 2018-12-05 11:07 | Observation (INO) ==
[2018-12-05] MEDS ORDERED: Aspirin 81 MG TAB.CHEW PO ONE (11:21)
[2018-12-05] MEDS ORDERED: Pantoprazole 40 MG VIAL IVP ONE (11:21)
[2018-12-05] MEDS ORDERED: Promethazine 25 MG in 0.9 % Sodium Chloride 50 ML IVPB ONE (11:22)
--- NOTE | 2018-12-05 11:32 | Emergency Department Note ---
Disposition Clinical Impression: Chest pain Qualifiers: Chest pain type: unspecified Qualified Code(s): R07.9 - Chest pain, unspecified Nausea and vomiting Qualifiers: Vomiting type: unspecified Vomiting Intractability: intractable Qualified Code(s): R11.2 - Nausea with vomiting, unspecified Abdominal pain Qualifiers: Abdominal location: epigastric Qualified Code(s): R10.13 - Epigastric pain Disposition: Admitted As Inpatient Condition: Fair Referrals: NONE,PCP [Primary Care Provider] - Forms: ED Satisfaction Letter Time of Disposition: 14:33 General Adult HPI - General Chief complaint: ED Chest Pain Stated complaint: Chest Pain Time Seen by Provider: 12/05/18 11:09 Source: patient, EMS Mode of arrival: ambulatory Limitations: no limitations Nursing Notes Reviewed: Yes Vital Signs Reviewed: Yes - History of Present Illness HPI Narrative: Alert and oriented nontoxic-appearing 38-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 She was seen at this facility yesterday for epigastric pain, nausea, and vomiting. At that time, she had been out of her hydrocortisone for the past 2 days. She was given a dose of Solu-Cortef here by IV and discharged home. The patient stated that she would be able to pickup driver her prescription for her previously prescribed hydrocortisone this morning however she has not yet had a chance to do so. She states that the abdominal cramping and nausea returns sometime yesterday evening. She woke this morning at approximately 8:00 AM with the complaints of chest pain. The chest pain is made slightly worse and with inspiration. She does complain of a mild degree of dyspnea. She denies any productive cough, fever, or hemoptysis. She stated that she feels dehydrated, although her last episodes of vomiting or at approximately 2:00 this morning. Location: chest, abdomen Pain Scale: 8 Quality: other (Heaviness/pressure) Consistency: constant Improves with: nothing Worsens with: nothing Associated symptoms: Reports: malaise, nausea/vomiting, shortness of breath. Denies: cough, diaphoresis, fever/chills Treatments Prior to Arrival: none - Related Data Home Medications Medication Instructions Recorded Confirmed Sonia 12/30/17 Previous Rx's Medication Instructions Recorded Hydrocortisone [Cortef] 20 mg PO BID #20 tablet 03/29/18 Ciprofloxacin [Cipro] 500 mg PO BID #14 tablet 08/11/18 Promethazine [Phenergan] 25 mg PO Q8HR #10 tablet 08/11/18 Promethazine [Phenergan] 25 mg PO Q8HR #10 tablet 12/04/18 Allergies Allergy/AdvReac Type Severity Reaction Status Date / Time No Known Allergies Allergy Verified 08/11/18 08:26 All systems ED: reviewed and negative except as stated. Review of Systems: As Per HPI Constitutional: Denies: fever, chills, weakness, weight change Eyes: Denies: eye pain, eye discharge, vision change ENT ED: Denies: ear pain, throat pain, dental pain, hearing loss, epistaxis, congestion, dysphagia Cardiovascular: Reports: as per HPI, chest pain. Denies: palpitations, dyspnea on exertion, edema, syncope Respiratory: Reports: as per HPI, dyspnea. Denies: cough, wheezes, hemoptysis, stridor Gastrointestinal: Reports: as per HPI, abdominal pain, nausea, vomiting. Denies: diarrhea, constipation, hematemesis, melena, hematochezia Genitourinary: Denies: dysuria, frequency, hematuria, discharge Musculoskeletal: Denies: back pain, neck pain, arthralgia, myalgia Integumentary: Denies: rash, abrasion, lesions Neurological: Denies: headache, weakness, numbness, paresthesias, confusion, abnormal gait, vertigo Psychiatric: Denies: anxiety, depression, suicidal thoughts, homicidal thoughts, auditory hallucinations, visual hallucinations Endocrine: Denies: fatigue Hematological/Lymphatic: Denies: easy bleeding, easy bruising Allergic/Immunologic: Denies: facial swelling, urticaria Past Medical History - Past Medical History Attestation: Yes The following information was validated with the patient. Source: patient, nursing notes reviewed Medical history: Reports: GERD, migraine Surgical history: Reports: , cholecystectomy Psychiatric history: Reports: previous psychiatric hospitalization, anxiety, depression, panic disorder, prior suicide attempt INFORMAL WAITER/WAITRESS history: Reports: no INFORMAL WAITER/WAITRESS history - Social History Smoking Status: Current every day smoker Smokeless Tobacco Status: No Alcohol use: Reports: rarely Drug use: Reports: marijuana Physical Exam - General Limitations: no limitations General appearance: alert, anxious - Head Head exam: atraumatic, normocephalic, normal inspection - Eye Eye exam: Present: normal appearance, PERRL, EOMI. Absent: nystagmus - ENT ENT exam: mucous membranes moist - Neck Neck exam: Present: normal inspection, full ROM - Chest Chest inspection: Present: normal inspection, symmetric chest wall rise - Respiratory Respiratory exam: Present: normal lung sounds bilaterally. Absent: respiratory distress, wheezes, stridor, accessory muscle use, prolonged expiratory phase - Cardiovascular Cardiovascular exam: Present: regular rate, normal rhythm, normal heart sounds - Abdominal Exam Abdominal exam: Present: soft, tenderness, normal bowel sounds. Absent: distention, guarding, rebound, rigidity, mass Abdominal tenderness: Present: LUQ, epigastrium, moderate - Extremities Exam Extremities exam: Present: normal inspection, full ROM - Neurological Exam Neurological exam: Present: alert, oriented X3 - Psychiatric Psychiatric exam: Present: normal affect, normal mood - Skin Skin exam: Present: warm, dry, intact, normal color. Absent: rash, cyanosis, diaphoresis, pallor, mottled Course Course Narrative: I have discussed this patient's case with Dr. Silver, ED attending. Dr. Silver has reviewed the patient's laboratory and radiology workup. He has had [id number] time with the patient. He agrees with admission to the hospital service for intractable abdominal pain, nausea, and chest pain. 1433: I spoke with Dr. Mccarty of the hospitalist service who has accepted the patient for admission to the hospitalist care. Vital Signs Temperature 98.7 F 12/05/18 11:10 Pulse Rate 98 12/05/18 11:10 Respiratory Rate 18 12/05/18 11:10 Blood Pressure 127/87 12/05/18 11:10 O2 Sat by Pulse Oximetry 97 12/05/18 11:10 Temperature 98.7 F 12/05/18 11:10 Pulse Rate 98 12/05/18 11:10 Respiratory Rate 18 12/05/18 11:10 Blood Pressure 127/87 12/05/18 11:10 O2 Sat by Pulse Oximetry 97 12/05/18 11:50 Oxygen Delivery Oxygen Delivery Room Air Medical Decision Making - Medical Records Medical records reviewed: Yes I reviewed the patient's medical records. - Lab Data Lab results reviewed: Yes I reviewed the patient's lab results. Result diagrams: 12/05/18 11:58 12/05/18 11:58 Lab Results 12/05/18 12/05/18 12/05/18 Range/Units 11:58 11:58 11:58 WBC (4.3-11.1) K/mcL RBC (3.82-4.97) M/mcL Hgb (11.5-15.4) g/dL Hct (35.3-44.9) % MCV (83.0-100.0) fL MCH (28.0-33.3) pg MCHC (31.6-35.5) g/dL RDW (11.5-14.5) % Plt Count (140-400) K/mcL MPV (9.4-12.4) fL Immature Gran % (0-4) % Seg Neutrophils % % Lymphocytes % % Monocytes % % Eosinophils % % Basophils % % Neutrophils # (1.6-8.9) K/mcL Lymphocytes # (0.6-4.6) K/mcL Monocytes # (0.0-1.3) K/mcL Eosinophils # (0.0-0.6) K/mcL Basophils # (0.0-0.2) K/mcL PT 12.1 (9.4-12.1) Seconds INR 1.1 APTT 32.3 (26.0-36.0) Seconds D-Dimer < 215 (0-500) ng/mLFEU Sodium (136-145) mEq/L Potassium (3.5-5.1) mEq/L Chloride (98-107) mEq/L Carbon Dioxide (23-29) mEq/L BUN (6-20) mg/dL Creatinine (0.60-1.20) mg/dL Est GFR ( Amer) (> 60) Est GFR (Non-Af Amer) (> 60) BUN/Creatinine Ratio (6-26) Glucose (70-105) mg/dL Calculated Osmolality (280-300) Calcium (8.6-10.3) mg/dL Total Bilirubin 1.0 (0.3-1.0) mg/dL Direct Bilirubin 0.2 (0.0-0.2) mg/dL Indirect Bilirubin 0.8 (0.0-1.2) mg/dL AST 13 (13-39) Units/L ALT 13 (7-52) Units/L Alkaline Phosphatase 45 (34-104) Units/L Troponin I (< 0.04) ng/mL B-Natriuretic Peptide 51 (Less than 100) pg/mL Serum Total Protein 6.6 (6.4-8.9) g/dL Albumin 4.1 (3.5-5.7) g/dL Globulin 2.5 (2.4-3.5) g/dL Albumin/Globulin Ratio 1.6 (1.1-2.2) Lipase 9 L (11-82) Units/L Urine Color (Yellow) Urine Clarity (Clear) Urine pH (5.0-8.0) pH Units Ur Specific [place] (1.010-1.025) Urine Protein (Neg-Trace) mg/dL Urine Glucose (UA) (Normal) mg/dL Urine Ketones (Negative) mg/dL Urine Blood (Negative) Urine Nitrite (Negative) Urine Bilirubin (Negative) Urine Urobilinogen (Normal) mg/dL Ur Leukocyte Esterase (Negative) Urine Microscopic RBC (0-3) per hpf Urine Microscopic WBC (0-3) per hpf Ur Squamous Epith Cells (None-Few) per lpf Urine Bacteria (None-Few) per hpf Hyaline Casts (None-Few) per lpf Ur Culture Indicated? (NO) 12/05/18 12/05/18 12/05/18 Range/Units 11:58 11:58 13:39 WBC 15.8 H (4.3-11.1) K/mcL RBC 4.32 (3.82-4.97) M/mcL Hgb 14.3 (11.5-15.4) g/dL Hct 42.9 (35.3-44.9) % MCV 99.3 (83.0-100.0) fL MCH 33.1 (28.0-33.3) pg MCHC 33.3 (31.6-35.5) g/dL RDW 12.6 (11.5-14.5) % Plt Count 420 H (140-400) K/mcL MPV 9.7 (9.4-12.4) fL Immature Gran % 0.4 (0-4) % Seg Neutrophils % 86.0 % Lymphocytes % 7.4 % Monocytes % 5.9 % Eosinophils % 0.0 % Basophils % 0.3 % Neutrophils # 13.6 H (1.6-8.9) K/mcL Lymphocytes # 1.2 (0.6-4.6) K/mcL Monocytes # 0.9 (0.0-1.3) K/mcL Eosinophils # 0.0 (0.0-0.6) K/mcL Basophils # 0.0 (0.0-0.2) K/mcL PT (9.4-12.1) Seconds INR APTT (26.0-36.0) Seconds D-Dimer (0-500) ng/mLFEU Sodium 138 (136-145) mEq/L Potassium 3.4 L (3.5-5.1) mEq/L Chloride 104 (98-107) mEq/L Carbon Dioxide 23 (23-29) mEq/L BUN 8 (6-20) mg/dL Creatinine 0.55 L (0.60-1.20) mg/dL Est GFR ( Amer) > 60 (> 60) Est GFR (Non-Af Amer) > 60 (> 60) BUN/Creatinine Ratio 15 (6-26) Glucose 94 (70-105) mg/dL Calculated Osmolality 284 (280-300) Calcium 9.3 (8.6-10.3) mg/dL Total Bilirubin (0.3-1.0) mg/dL Direct Bilirubin (0.0-0.2) mg/dL Indirect Bilirubin (0.0-1.2) mg/dL AST (13-39) Units/L ALT (7-52) Units/L Alkaline Phosphatase (34-104) Units/L Troponin I < 0.03 (< 0.04) ng/mL B-Natriuretic Peptide (Less than 100) pg/mL Serum Total Protein (6.4-8.9) g/dL Albumin (3.5-5.7) g/dL Globulin (2.4-3.5) g/dL Albumin/Globulin Ratio (1.1-2.2) Lipase (11-82) Units/L Urine Color Yellow (Yellow) Urine Clarity Clear (Clear) Urine pH 7.0 (5.0-8.0) pH Units Ur Specific [place] 1.014 (1.010-1.025) Urine Protein Negative (Neg-Trace) mg/dL Urine Glucose (UA) Normal (Normal) mg/dL Urine Ketones 40 H (Negative) mg/dL Urine Blood Small H (Negative) Urine Nitrite Negative (Negative) Urine Bilirubin Negative (Negative) Urine Urobilinogen Normal (Normal) mg/dL Ur Leukocyte Esterase Negative (Negative) Urine Microscopic RBC 5-15 H (0-3) per hpf Urine Microscopic WBC 5-15 H (0-3) per hpf Ur Squamous Epith Cells Many H (None-Few) per lpf Urine Bacteria Few (None-Few) per hpf Hyaline Casts None Seen (None-Few) per lpf Ur Culture Indicated? NO (NO) - Radiology Data Radiology results reviewed: Yes I reviewed the patient's radiology results. - EKG Data EKG #1 EKG attestation: Yes I reviewed and interpreted this EKG. EKG results narrative: EKG shows a normal sinus rhythm at a rate of 78 bpm. MO interval 177, QRS duration 98, QT/QTc interval 392/447. No ectopy noted. No ST elevations. No significant change in morphology when compared to an EKG dated from 12/04/18.
[2018-12-05] MEDS ORDERED: Hydrocortisone 10 MG TABLET PO STA (11:38)
[2018-12-05] MEDS: 0.9 % Sodium Chloride 1,000 ML IVC SCH ×3 (11:53→17:35)
[2018-12-05 12:30] LABS: Albumin 4.1 g/dL (3.5-5.7); Albumin/Globulin Ratio 1.6 (1.1-2.2); Bilirubin,Direct 0.2 mg/dL (0.0-0.2); Bilirubin,Indirect 0.8 mg/dL (0.0-1.2); Globulin 2.5 g/dL (2.4-3.5); Total Protein 6.6 g/dL (6.4-8.9)
[2018-12-05 12:32] LABS: BUN/Creatinine Ratio 15 (6-26); Blood Urea Nitrogen 8 mg/dL (6-20); Calcium 9.3 mg/dL (8.6-10.3); Carbon Dioxide 23 mEq/L (23-29); Chloride 104 mEq/L (98-107); Glucose 94 mg/dL (70-105); Osmolality,Calculated 284 (280-300); Potassium 3.4 mEq/L (3.5-5.1); Sodium 138 mEq/L (136-145); eGFR For Non-African Americans > 60 (> 60)
[2018-12-05 12:33] LABS: Troponin I < 0.03 ng/mL (< 0.04)
[2018-12-05 12:35] LABS: Basophils % 0.3 %; Hematocrit 42.9 % (35.3-44.9); Hemoglobin 14.3 g/dL (11.5-15.4); Immature Granulocytes % 0.4 % (0-4); Lymphocytes # 1.2 K/mcL (0.6-4.6); Lymphocytes % 7.4 %; Mean Corpuscular HGB Conc 33.3 g/dL (31.6-35.5); Mean Corpuscular Hemoglobin 33.1 pg (28.0-33.3); Mean Corpuscular Volume 99.3 fL (83.0-100.0); Mean Platelet Volume 9.7 fL (9.4-12.4); Monocytes # 0.9 K/mcL (0.0-1.3); Monocytes % 5.9 %; Neutrophils # 13.6 K/mcL (1.6-8.9); Platelet Count 420 K/mcL (140-400); Red Blood Count 4.32 M/mcL (3.82-4.97); Red Cell Distribution Width 12.6 % (11.5-14.5)
[2018-12-05 12:46] LABS: INR 1.1; Prothrombin Time 12.1 Seconds (9.4-12.1)
[2018-12-05 12:48] LABS: Activated Partial Thrombo Time 32.3 Seconds (26.0-36.0)
[2018-12-05 13:09] LABS: D-Dimer < 215 ng/mLFEU (0-500)
[2018-12-05 13:53] LABS: Bilirubin,Urine Negative (Negative); Blood,Urine Small (Negative); Clarity,Urine Clear (Clear); Color,Urine Yellow (Yellow); Glucose,Urine (UA) Normal (Normal); Ketones,Urine 40 mg/dL (Negative); Leukocyte Esterase,Urine Negative (Negative); Nitrite,Urine Negative (Negative); Protein,Urine Negative (Neg-Trace); Specific Gravity,Urine 1.014 (1.010-1.025); Urobilinogen,Urine Normal (Normal)
[2018-12-05] MEDS ORDERED: *HR* FentaNYL (PF) 100 MCG/2 ML VIAL IVP ONE (13:55)
[2018-12-05] MEDS ORDERED: Prochlorperazine 10 MG/2 ML VIAL IVP STA (13:55)
[2018-12-05 13:57] LABS: Bacteria,Urine Few per hpf (None-Few); Hyaline Casts,Urine None Seen per lpf (None-Few); Squamous Epithelial Cell,Urine Many per lpf (None-Few)
--- NOTE | 2018-12-05 14:32 | Emergency Department Note ---
Disposition Clinical Impression: Chest pain Qualifiers: Chest pain type: unspecified Qualified Code(s): R07.9 - Chest pain, unspecified Disposition: Still a Patient Referrals: NONE,PCP [Primary Care Provider] - Forms: ED Satisfaction Letter General Adult HPI - General Chief complaint: ED Chest Pain Stated complaint: Chest Pain Time Seen by Provider: 12/05/18 11:09 Source: patient, EMS Mode of arrival: ambulatory Limitations: no limitations Nursing Notes Reviewed: Yes Vital Signs Reviewed: Yes - History of Present Illness HPI Narrative: Attestation note: Patient was seen with the emergency medicine resident/nurse practitioner/ physician nurseryman assistant/transitional resident/medical student: JESICA GARCIAS I have personally performed a face to face evaluation on this patient. I have reviewed and agree with history and physical examination patient management and disposition. 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 Admission disposition pending Location: chest, abdomen Pain Scale: 8 Quality: other (Heaviness/pressure) Improves with: nothing Worsens with: nothing Associated symptoms: Reports: malaise, nausea/vomiting, shortness of breath. Denies: cough, diaphoresis, fever/chills Treatments Prior to Arrival: none - Related Data Home Medications Medication Instructions Recorded Confirmed Prilosec 12/30/17 Previous Rx's Medication Instructions Recorded Hydrocortisone [Cortef] 20 mg PO BID #20 tablet 03/29/18 Ciprofloxacin [Cipro] 500 mg PO BID #14 tablet 08/11/18 Promethazine [Phenergan] 25 mg PO Q8HR #10 tablet 08/11/18 Promethazine [Phenergan] 25 mg PO Q8HR #10 tablet 12/04/18 Allergies Allergy/AdvReac Type Severity Reaction Status Date / Time No Known Allergies Allergy Verified 08/11/18 08:26 Constitutional: Denies: fever, chills, weakness, weight change Eyes: Denies: eye pain, eye discharge, vision change ENT ED: Denies: ear pain, throat pain, dental pain, hearing loss, epistaxis, congestion, dysphagia Cardiovascular: Reports: as per HPI, chest pain. Denies: palpitations, dyspnea on exertion, edema, syncope Respiratory: Reports: as per HPI, dyspnea. Denies: cough, wheezes, hemoptysis, stridor Gastrointestinal: Reports: as per HPI, abdominal pain, nausea, vomiting. Denies: diarrhea, constipation, hematemesis, melena, hematochezia Genitourinary: Denies: dysuria, frequency, hematuria, discharge Musculoskeletal: Denies: back pain, neck pain, arthralgia, myalgia Integumentary: Denies: rash, abrasion, lesions Neurological: Denies: headache, weakness, numbness, paresthesias, confusion, abnormal gait, vertigo Psychiatric: Denies: anxiety, depression, suicidal thoughts, homicidal thoughts, auditory hallucinations, visual hallucinations Endocrine: Denies: fatigue Hematological/Lymphatic: Denies: easy bleeding, easy bruising Allergic/Immunologic: Denies: facial swelling, urticaria Past Medical History - Past Medical History Medical history: Reports: GERD, migraine Surgical history: Reports: , cholecystectomy Psychiatric history: Reports: previous psychiatric hospitalization, anxiety, depression, panic disorder, prior suicide attempt 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: no 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 LABORATORY TECHNICIAN history - Social History Smoking Status: Current every day smoker Smokeless Tobacco Status: No Alcohol use: Reports: rarely Drug use: Reports: marijuana Physical Exam - General Limitations: no limitations General appearance: alert, anxious Course Vital Signs Temperature 98.7 F 12/05/18 11:10 Pulse Rate 98 12/05/18 11:10 Respiratory Rate 18 12/05/18 11:10 Blood Pressure 127/87 12/05/18 11:10 O2 Sat by Pulse Oximetry 97 12/05/18 11:10 Temperature 98.7 F 12/05/18 11:10 Pulse Rate 98 12/05/18 11:10 Respiratory Rate 18 12/05/18 11:10 Blood Pressure 127/87 12/05/18 11:10 O2 Sat by Pulse Oximetry 97 12/05/18 11:50 Oxygen Delivery Oxygen Delivery Room Air Medical Decision Making - Lab Data Result diagrams: 12/05/18 11:58 12/05/18 11:58 Lab Results 12/05/18 12/05/18 12/05/18 Range/Units 11:58 11:58 11:58 WBC (4.3-11.1) K/mcL RBC (3.82-4.97) M/mcL Hgb (11.5-15.4) g/dL Hct (35.3-44.9) % MCV (83.0-100.0) fL MCH (28.0-33.3) pg MCHC (31.6-35.5) g/dL RDW (11.5-14.5) % Plt Count (140-400) K/mcL MPV (9.4-12.4) fL Immature Gran % (0-4) % Seg Neutrophils % % Lymphocytes % % Monocytes % % Eosinophils % % Basophils % % Neutrophils # (1.6-8.9) K/mcL Lymphocytes # (0.6-4.6) K/mcL Monocytes # (0.0-1.3) K/mcL Eosinophils # (0.0-0.6) K/mcL Basophils # (0.0-0.2) K/mcL PT 12.1 (9.4-12.1) Seconds INR 1.1 APTT 32.3 (26.0-36.0) Seconds D-Dimer < 215 (0-500) ng/mLFEU Sodium (136-145) mEq/L Potassium (3.5-5.1) mEq/L Chloride (98-107) mEq/L Carbon Dioxide (23-29) mEq/L BUN (6-20) mg/dL Creatinine (0.60-1.20) mg/dL Est GFR ( Amer) (> 60) Est GFR (Non-Af Amer) (> 60) BUN/Creatinine Ratio (6-26) Glucose (70-105) mg/dL Calculated Osmolality (280-300) Calcium (8.6-10.3) mg/dL Total Bilirubin 1.0 (0.3-1.0) mg/dL Direct Bilirubin 0.2 (0.0-0.2) mg/dL Indirect Bilirubin 0.8 (0.0-1.2) mg/dL AST 13 (13-39) Units/L ALT 13 (7-52) Units/L Alkaline Phosphatase 45 (34-104) Units/L Troponin I (< 0.04) ng/mL B-Natriuretic Peptide 51 (Less than 100) pg/mL Serum Total Protein 6.6 (6.4-8.9) g/dL Albumin 4.1 (3.5-5.7) g/dL Globulin 2.5 (2.4-3.5) g/dL Albumin/Globulin Ratio 1.6 (1.1-2.2) Lipase 9 L (11-82) Units/L Urine Color (Yellow) Urine Clarity (Clear) Urine pH (5.0-8.0) pH Units Ur Specific [place] (1.010-1.025) Urine Protein (Neg-Trace) mg/dL Urine Glucose (UA) (Normal) mg/dL Urine Ketones (Negative) mg/dL Urine Blood (Negative) Urine Nitrite (Negative) Urine Bilirubin (Negative) Urine Urobilinogen (Normal) mg/dL Ur Leukocyte Esterase (Negative) Urine Microscopic RBC (0-3) per hpf Urine Microscopic WBC (0-3) per hpf Ur Squamous Epith Cells (None-Few) per lpf Urine Bacteria (None-Few) per hpf Hyaline Casts (None-Few) per lpf Ur Culture Indicated? (NO) 12/05/18 12/05/18 12/05/18 Range/Units 11:58 11:58 13:39 WBC 15.8 H (4.3-11.1) K/mcL RBC 4.32 (3.82-4.97) M/mcL Hgb 14.3 (11.5-15.4) g/dL Hct 42.9 (35.3-44.9) % MCV 99.3 (83.0-100.0) fL MCH 33.1 (28.0-33.3) pg MCHC 33.3 (31.6-35.5) g/dL RDW 12.6 (11.5-14.5) % Plt Count 420 H (140-400) K/mcL MPV 9.7 (9.4-12.4) fL Immature Gran % 0.4 (0-4) % Seg Neutrophils % 86.0 % Lymphocytes % 7.4 % Monocytes % 5.9 % Eosinophils % 0.0 % Basophils % 0.3 % Neutrophils # 13.6 H (1.6-8.9) K/mcL Lymphocytes # 1.2 (0.6-4.6) K/mcL Monocytes # 0.9 (0.0-1.3) K/mcL Eosinophils # 0.0 (0.0-0.6) K/mcL Basophils # 0.0 (0.0-0.2) K/mcL PT (9.4-12.1) Seconds INR APTT (26.0-36.0) Seconds D-Dimer (0-500) ng/mLFEU Sodium 138 (136-145) mEq/L Potassium 3.4 L (3.5-5.1) mEq/L Chloride 104 (98-107) mEq/L Carbon Dioxide 23 (23-29) mEq/L BUN 8 (6-20) mg/dL Creatinine 0.55 L (0.60-1.20) mg/dL Est GFR ( Amer) > 60 (> 60) Est GFR (Non-Af Amer) > 60 (> 60) BUN/Creatinine Ratio 15 (6-26) Glucose 94 (70-105) mg/dL Calculated Osmolality 284 (280-300) Calcium 9.3 (8.6-10.3) mg/dL Total Bilirubin (0.3-1.0) mg/dL Direct Bilirubin (0.0-0.2) mg/dL Indirect Bilirubin (0.0-1.2) mg/dL AST (13-39) Units/L ALT (7-52) Units/L Alkaline Phosphatase (34-104) Units/L Troponin I < 0.03 (< 0.04) ng/mL B-Natriuretic Peptide (Less than 100) pg/mL Serum Total Protein (6.4-8.9) g/dL Albumin (3.5-5.7) g/dL Globulin (2.4-3.5) g/dL Albumin/Globulin Ratio (1.1-2.2) Lipase (11-82) Units/L Urine Color Yellow (Yellow) Urine Clarity Clear (Clear) Urine pH 7.0 (5.0-8.0) pH Units Ur Specific [place] 1.014 (1.010-1.025) Urine Protein Negative (Neg-Trace) mg/dL Urine Glucose (UA) Normal (Normal) mg/dL Urine Ketones 40 H (Negative) mg/dL Urine Blood Small H (Negative) Urine Nitrite Negative (Negative) Urine Bilirubin Negative (Negative) Urine Urobilinogen Normal (Normal) mg/dL Ur Leukocyte Esterase Negative (Negative) Urine Microscopic RBC 5-15 H (0-3) per hpf Urine Microscopic WBC 5-15 H (0-3) per hpf Ur Squamous Epith Cells Many H (None-Few) per lpf Urine Bacteria Few (None-Few) per hpf Hyaline Casts None Seen (None-Few) per lpf Ur Culture Indicated? NO (NO)
--- NOTE | 2018-12-05 16:36 | Internal Med History&Physical ---
<Rubens Arboleda - Last Filed: 12/05/18 17:37> Date of Encounter: 12/05/18 Time of Encounter: 15:30 Internal Medicine - H&P: HPI Chief complaint: Nausea, vomiting Admitted From: Home Plans for Post Hospital Care: Home History of present illness: Ms. Cronin is a 38 year old female with a PMH of Addisons disease, GERD, anxiety, depression, and Factor V Leiden who presented to [facility] ED on 12/05/18 with the chief complaint of nausea, vomiting, epigastric abdominal pain, and chest pressure. Patient had previously presented to [facility] ED on 12/04 similar complaints. She reported that she had been out of her Solu-Cortef for 2 days. She received an IV dose of Solu-Cortef, then was discharged home. After being discharged, patient initially felt better. However, later in the evening, she began to experience abdominal cramping and nausea. She states that approximately 2 AM, she began to vomit. Also states that she had chest pain starting at approximately 8 AM. She states that this pain is located in the lower sternal area near the epigastric region, and is worsened with inspiration. Also complained of mild shortness of breath. Denied having any cough, fever, chills, hemoptysis, diarrhea, constipation, or blood in stool. Vital signs on presentation were significant for a heart rate elevated at 98 bpm. All other vital signs were within normal limits. Laboratory analysis demonstrated an elevated white count at 15.8 and a low potassium at 3.4. Lipase was unremarkable at 9. Liver panel was also unremarkable. Initial troponin was less than 0.03. Chest x-ray and urinalysis were ordered, both of which were unremarkable. She was given a one-time dose of 10 mg Compazine IV and Phenergan 25 mg. Patient was seen and examined at bedside; reports an improvement in her symptoms since she received the Compazine and Phenergan. She smokes 2 PPD, and has smoked for 20 years. She occasionally drinks alcohol, and admits to occassional marijuana use. Her family history includes a history of clots in her maternal uncle and grandmother, and a history of cardiac disease on her father's side. She currently denies having any active chest pain. She reports mild pain in the epigastric region, but is otherwise feeling better. She currently denies fever, chills, vomiting, palpitations, chest pain, shortness of breath, or diaphoresis. She has no further complaints at this time. Past Med Surg Social Fam HX - Past Medical History Medical history: GERD, migraine Additional medical history: stefany's disease Psychiatric history: previous psychiatric hospitalization, anxiety, depression, panic disorder, prior suicide attempt - Past Surgical History Surgical History: , cholecystectomy Additional surgical history: reconstructed face. Tubal Ligation - Social History Smoking Status: Current every day smoker Smokeless Tobacco Status: No Alcohol use: rarely Drug use: marijuana - Family History Father Living Status: Hx Family Respiratory Disorders: Yes Hx Family Cancer: Yes (Lung Ca) Mother Living Status: Still Living Hx Family Cardiac Disorders: Yes (Open Heart) Hx Family Respiratory Disorders: Yes (COPD) Hx Family Cancer: No Hx Family GI Disorders: No Hx Family Endocrine Disorder: Yes (DM) Hx Family Neuromuscular Disorders: No Hx Family Neurologic Disorders: No Hx Family HEENT Disorders: No Hx Family Autoimmune Disorders: No Internal Medicine - H&P: Meds Hydrocortisone 5 mg PO QPM 12/05/18 [History] Hydrocortisone 15 mg PO QAM 12/05/18 [History] Promethazine [Phenergan] 25 mg PO Q6H PRN 12/05/18 [History] RX: Omeprazole [PriLOSEC] 40 mg PO DAILY 12/05/18 [History] RX: Ondansetron ODT [Zofran ODT] 4 mg PO Q4-6H PRN 12/05/18 [History] Allergy/AdvReac Type Severity Reaction Status Date / Time No Known Allergies Allergy Verified 08/11/18 08:26 All Systems PM: A 10-system review of systems was performed and is negative for pertinent findings except as documented above in the HPI. - Constitutional Constitutional: malaise, no chills, no fatigue, no weakness - Constitutional Vitals: Temp Pulse Resp BP Pulse Ox 98.8 F 72 16 106/70 98 12/05/18 16:15 12/05/18 16:15 12/05/18 16:15 12/05/18 16:15 12/05/18 16:15 Exam: General: A&O X3, conversant, no acute distress Head: atraumatic, normocephalic; dry oral mucosa Eye: PERRL, EOMI, conjuntiva pink, sclera anicteric Neck: Supple, trachea midline; No lymphadenopathy Respiratory: CTAB. No accessory muscle use, wheezes, rales, or rhonchi Cardiovascular: RRR, +S1, +S2; no murmurs, rubs, gallops Abdomen: Soft, nondistended, mild tenderness to palpation in epigastric region; normoactive in all 4 quadrants Extremities: warm, radial pulses palpable and symmetrical Psychiatric: Normal affect, normal mood Skin: Dry, intact Internal Med - H&P Results - Labs CBC & Chem 7: 12/05/18 11:58 12/05/18 11:58 Labs: Short CBC 12/05/18 Range/Units 11:58 WBC 15.8 H (4.3-11.1) K/mcL Hgb 14.3 (11.5-15.4) g/dL Hct 42.9 (35.3-44.9) % Plt Count 420 H (140-400) K/mcL Neutrophils # 13.6 H (1.6-8.9) K/mcL BMP 12/05/18 11:58 Sodium 138 Potassium 3.4 L Chloride 104 Carbon Dioxide 23 BUN 8 Creatinine 0.55 L Glucose 94 Calcium 9.3 Cardiac Enzymes 12/05/18 Range/Units 11:58 Troponin I < 0.03 (< 0.04) ng/mL Liver Function 12/05/18 Range/Units 11:58 Total Bilirubin 1.0 (0.3-1.0) mg/dL Direct Bilirubin 0.2 (0.0-0.2) mg/dL AST 13 (13-39) Units/L ALT 13 (7-52) Units/L Alkaline Phosphatase 45 (34-104) Units/L Albumin 4.1 (3.5-5.7) g/dL Urine 12/05/18 Range/Units 13:39 Urine Color Yellow (Yellow) Urine Clarity Clear (Clear) Urine pH 7.0 (5.0-8.0) pH Units Ur Specific [place] 1.014 (1.010-1.025) Urine Protein Negative (Neg-Trace) mg/dL Urine Glucose (UA) Normal (Normal) mg/dL - Impressions ITS Impressions Chest X-Ray 12/05/18 11:21 IMPRESSION: No radiographic evidence of acute cardiopulmonary disease. D/ / Vijay Lira / Vijay Lira Interpreting Provider: Vijay Lira - Assessment and Plan (1) Viral gastritis Current Visit: Yes Status: Acute Assessment and plan: Initially presented with nausea, vomiting, and epigastric abdominal pain - Etiology is unknown at this time; possibly secondary to viral gastritis - Multiple prior admissions for similar complaints - Of note, patient does admit to occasional use of marijuana; reports that she smoked marijuana after the onset of her vomiting earlier in the morning - In the ED, patient received a one-time dose of 10 mg Compazine IV and Phenergan 25 mg - She reports an improvement in her symptoms since arrival Plan: - Will start patient on clear liquid diet - IV fluids at 125 mL per hour for a total of 2 L - IV Zofran and Phenergan when necessary (2) Addisons disease Current Visit: Yes Status: Acute Assessment and plan: - Patient has a known diagnosis of Addisons disease; was diagnosed 8 years ago - Takes Solu-Cortef 20 mg daily at home - Of note, patients labs demonstrate an elevated white count at 15.8; on review of previous records, patients baseline white count appears to be elevated between 15-20 - Likely secondary to long-term steroid use; low suspicion for bacterial infection at this time - Patient reports that she has had difficulty obtaining her medication, and has been without her Solu-Medrol for several days Plan: - Solu-Cortef 50 mg IV Q6; if after 24 hours patient can tolerate PO intake, will resume patients home PO Solu-Cortef - Social work consulted to assist patient in obtaining her medications (3) Hypokalemia Current Visit: Yes Status: Acute Assessment and plan: - Patient initially presented with low potassium at 3.4 - Likely secondary to intractable vomiting - Potassium chloride 40 mg elixir ordered - Repeat a.m. labs (4) Chest pain Current Visit: Yes Status: Acute Assessment and plan: - Patient initially complained of chest pain on arrival, located in the lower portion of her sternum to the epigastric area - Denied having chest pain during her last presentation to the ED - CXR was unremarkable - Possibly due to GERD or gastroenteritis; low suspicion for cardiac etiology at this time Plan: - Will trend troponin 2 Qualifiers: Qualified Code(s): R07.9 - Chest pain, unspecified (5) GERD (gastroesophageal reflux disease) Current Visit: Yes Status: Acute Assessment and plan: - Known history of GERD - Resume home Prilosec Qualifiers: Qualified Code(s): K21.9 - Gastro-esophageal reflux disease without esophagitis (6) Factor V Leiden Current Visit: Yes Status: Acute Assessment and plan: - Known history of Factor V Leiden - Had previously taken ASA - Will resume - Time Spent With Patient Total time spent is greater than 50% in coordination of care (as documented) at patient's floor/unit and/or counseling patient: 25 - 35 minutes <Solomon Liu - Last Filed: 12/05/18 17:56> Date of Encounter: 12/05/18 Internal Medicine - H&P: HPI History of present illness: Ms. Cronin is a 38 year old female All Systems PM: A 10-system review of systems was performed and is negative for pertinent findi ngs except as documented above in the HPI. - Constitutional Vitals: Temp Pulse Resp BP Pulse Ox 98.8 F 72 16 106/70 98 12/05/18 16:15 12/05/18 16:15 12/05/18 16:15 12/05/18 16:15 12/05/18 16:15 Internal Med - H&P Results - Labs CBC & Chem 7: 12/05/18 17:03 12/05/18 11:58 Labs: Short CBC 12/05/18 12/05/18 Range/Units 11:58 17:03 WBC 15.8 H 12.9 H (4.3-11.1) K/mcL Hgb 14.3 13.0 (11.5-15.4) g/dL Hct 42.9 38.6 (35.3-44.9) % Plt Count 420 H 387 (140-400) K/mcL Neutrophils # 13.6 H 10.3 H (1.6-8.9) K/mcL BMP 12/05/18 11:58 Sodium 138 Potassium 3.4 L Chloride 104 Carbon Dioxide 23 BUN 8 Creatinine 0.55 L Glucose 94 Calcium 9.3 Cardiac Enzymes 12/05/18 12/05/18 Range/Units 11:58 17:03 Troponin I < 0.03 < 0.03 (< 0.04) ng/mL Liver Function 12/05/18 Range/Units 11:58 Total Bilirubin 1.0 (0.3-1.0) mg/dL Direct Bilirubin 0.2 (0.0-0.2) mg/dL AST 13 (13-39) Units/L ALT 13 (7-52) Units/L Alkaline Phosphatase 45 (34-104) Units/L Albumin 4.1 (3.5-5.7) g/dL Urine 12/05/18 Range/Units 13:39 Urine Color Yellow (Yellow) Urine Clarity Clear (Clear) Urine pH 7.0 (5.0-8.0) pH Units Ur Specific [place] 1.014 (1.010-1.025) Urine Protein Negative (Neg-Trace) mg/dL Urine Glucose (UA) Normal (Normal) mg/dL - Impressions ITS Impressions Chest X-Ray 12/05/18 11:21 IMPRESSION: No radiographic evidence of acute cardiopulmonary disease. D/ / Vijay Lira / Vijay Lira Interpreting Provider: Vijay Lira - Assessment and Plan (1) Viral gastritis Current Visit: Yes Status: Acute (2) Chest pain Current Visit: Yes Status: Acute Qualifiers: Qualified Code(s): R07.9 - Chest pain, unspecified (3) Addisons disease Current Visit: Yes Status: Acute (4) GERD (gastroesophageal reflux disease) Current Visit: Yes Status: Acute Qualifiers: Qualified Code(s): K21.9 - Gastro-esophageal reflux disease without esophagitis (5) Hypokalemia Current Visit: Yes Status: Acute (6) Factor V Leiden Current Visit: Yes Status: Acute - Time Spent With Patient Total time spent is greater than 50% in coordination of care (as documented) at patient's floor/unit and/or counseling patient: - Attending Attestation I examined this patient and my medical decision-making was reviewed with the Resident Physician. I agree with the documented findings, disposition and treatment plan as described except to the extent set forth below. Patient is a 38-year-old female with history of Addisons disease who presents with intractable nausea and vomiting. This been going on for several days. She did have some relief after she was seen in the emergency department yesterday but her symptoms began again. She also had chest pain related to her GI symptoms. She has been unable to take her steroids. Also states she has been having difficulty obtaining them because of insurance issues. Patient denies any significant family history. Vital signs are stable, no hypotension. On exam she is resting comfortably in no acute distress, abdomen is soft, mild epigastric tenderness. Normoactive bowel sounds. Labs revealed mild hypokalemia. Leukocytosis present but appears chronic for patient, likely related to steroid use. Otherwise labs are normal. EKG unremarkable and troponin negative, chest x-ray normal. We will treat the patient sympto matically for viral gastroenteritis with Zofran and Phenergan, IV fluids. Clear liquid diet and advance as tolerated. Will give hydrocortisone 50 mg IV every 6 until her symptoms improve and she can take by mouth steroids. Of note patient also states that she has a history of factor V Leiden but takes only aspirin for this, no signs or symptoms of thrombosis, would recommend outpatient follow-up as she may require full anticoagulation.
[2018-12-05] MEDS ORDERED: Naloxone 0.4 MG/ML INJ IVP PRN (16:37)
[2018-12-05] MEDS ORDERED: *HR* Promethazine 25 MG/ML VIAL IVP PRN (16:37)
[2018-12-05] MEDS ORDERED: Potassium Chloride Elixir 20 MEQ/15 ML UDC PO ONE (16:55)
[2018-12-05] MEDS: Hydrocortisone Sodium Succ 100 MG/2 ML VIAL IVP SCH ×2 (17:34→22:58)
[2018-12-05] MEDS ORDERED: Aspirin 325 MG TABLET PO ONE (17:38)
[2018-12-05 17:40] LABS: Basophils % 0.2 %; Eosinophils % 0.1 %; Hematocrit 38.6 % (35.3-44.9); Immature Granulocytes % 0.4 % (0-4); Lymphocytes # 1.7 K/mcL (0.6-4.6); Lymphocytes % 13.3 %; Mean Corpuscular HGB Conc 33.7 g/dL (31.6-35.5); Mean Corpuscular Hemoglobin 33.5 pg (28.0-33.3); Mean Corpuscular Volume 99.5 fL (83.0-100.0); Mean Platelet Volume 9.7 fL (9.4-12.4); Monocytes # 0.8 K/mcL (0.0-1.3); Monocytes % 6.3 %; Neutrophils # 10.3 K/mcL (1.6-8.9); Platelet Count 387 K/mcL (140-400); Red Blood Count 3.88 M/mcL (3.82-4.97); Red Cell Distribution Width 12.4 % (11.5-14.5); Segmented Neutrophils % 79.7 %
[2018-12-05] MEDS: Ondansetron 4 MG/2 ML VIAL IVP PRN (17:54)
[2018-12-05] MEDS: Acetaminophen 325 MG TABLET PO PRN (18:25)
[2018-12-05] MEDS ORDERED: traMADol 50 MG TABLET PO PRN (20:04)
[2018-12-05] MEDS ORDERED: *HR* HYDROcodone/Acet 5/325 mg TABLET PO ONE (21:50)
[2018-12-06] MEDS: Ondansetron 4 MG/2 ML VIAL IVP PRN (00:25)
[2018-12-06] MEDS: Acetaminophen 325 MG TABLET PO PRN (00:25)
[2018-12-06] MEDS: 0.9 % Sodium Chloride 1,000 ML IVC SCH (01:56)
[2018-12-06 04:22] LABS: BUN/Creatinine Ratio 9 (6-26); Blood Urea Nitrogen 5 mg/dL (6-20); Calcium 8.5 mg/dL (8.6-10.3); Carbon Dioxide 22 mEq/L (23-29); Chloride 106 mEq/L (98-107); Glucose 137 mg/dL (70-105); Osmolality,Calculated 283 (280-300); Potassium 3.7 mEq/L (3.5-5.1); Sodium 137 mEq/L (136-145); eGFR For Non-African Americans > 60 (> 60)
[2018-12-06] MEDS: Hydrocortisone Sodium Succ 100 MG/2 ML VIAL IVP SCH (05:23)
[2018-12-06] MEDS ORDERED: *HR* HYDROcodone/Acet 5/325 mg TABLET PO ONE (06:01)
[2018-12-06 07:43] VITALS: BP 113/78
--- NOTE | 2018-12-06 09:35 | Discharge Summary ---
- NOTES TO OUTPATIENT PROVIDER Notes to Outpatient Provider: Patient needed close follow-up for adrenal insufficiency. Consider starting anticoagulation for factor V Leiden based on previous history of thrombosis or family history in detail Orders not resulted at time of discharge: Pending orders 12/06/18 04:45 Troponin I Q6H Date of Encounter: 12/06/18 Time of Encounter: 09:35 - Discharge Diagnosis (1) Viral gastritis Priority: Primary Status: Acute (2) Chest pain Priority: Secondary Status: Acute Qualifiers: Qualified Code(s): R07.9 - Chest pain, unspecified (3) Addisons disease Priority: Primary Status: Acute (4) GERD (gastroesophageal reflux disease) Priority: Primary Status: Acute Qualifiers: Qualified Code(s): K21.9 - Gastro-esophageal reflux disease without esophagitis (5) Hypokalemia Priority: Secondary Status: Acute (6) Factor V Leiden Priority: Secondary Status: Acute Hospital course: Ms. Cronin is a 38 year old female past medical history of GERD, migraine, [place]'s disease, factor V Leiden , anxiety, depression came in with complain of nausea vomiting and epigastric discomfort associated with some chest pressure. Patient has been out of her steroids for past 2-3 days. Patient was admitted for possible gastroenteritis and for IV steroid administration. Patient was started on IV hydration and Solu-Cortef. Patient's nausea was controlled and after receiving IV steroids patient significantly improved symptomatically. Patient's troponin were negative and EKG unremarkable. This is patient's symptoms improved and because of obligations of child custody patient wanted to go home. Patient aware needs to be compliant with her steroids and does have prescription which she will be able to get filled. She is otherwise stable to be discharged to be followed with own primary care physician which she is currently finding. Discharge discussed with: patient, nurse - Time Spent with Patient Total time spent providing and/or coordinating discharge services: Time spent: Greater than 30 minutes - Discharge Medications Prescriptions: Continue Promethazine [Phenergan] 25 mg PO Q6H PRN PRN Reason: Nausea Ondansetron ODT [Zofran ODT] 4 mg PO Q4-6H PRN PRN Reason: Nausea Omeprazole [PriLOSEC] 40 mg PO DAILY Hydrocortisone 15 mg PO QAM Hydrocortisone 5 mg PO QPM Home Medications: Hydrocortisone 5 mg PO QPM 12/05/18 [History] Hydrocortisone 15 mg PO QAM 12/05/18 [History] Omeprazole [PriLOSEC] 40 mg PO DAILY 12/05/18 [History] Ondansetron ODT [Zofran ODT] 4 mg PO Q4-6H PRN 12/05/18 [History] Promethazine [Phenergan] 25 mg PO Q6H PRN 12/05/18 [History] Allergies/Adverse Reactions: Allergy/AdvReac Type Severity Reaction Status Date / Time No Known Allergies Allergy Verified 08/11/18 08:26 Date of admission: 12/05/18 14:54 Primary care physician: PCP NONE Consults: 12/05/18 15:21 Consult to Invasive Line Access Team [CONS] Routine Reason for Consult: limited access Line Type: EPIV 12/05/18 16:39 Consult to Stockroom Associate [CONS] Routine Reason for SW Consult: Patient has difficulty obtaining her prescription medications Discharging clinician: Frandy Rainey - Constitutional Vitals: Temp Pulse Resp BP Pulse Ox 98.4 F 68 17 113/78 96 12/06/18 07:42 12/06/18 07:42 12/06/18 07:42 12/06/18 07:42 12/06/18 07:42 Exam: General: In no acute distress. Respiratory exam: CTAB. no accessory muscle use, rales, rhonchi, wheezes Cardiovascular exam: RRR, +S1, +S2. no murmur, gallop, rubs. GI/Abdominal exam: Non-tender, Non-distended, normal bowel sounds, soft, no peritoneal signs. Extremities exam: no pedal edema, pulses palpable in b/l lower extremities. no calf tenderness Neurological exam: CN II-XII intact, AO X3, no focal deficits. Skin exam: No skin rash - Patient Status Disposition: Home, Self-Care Condition: Fair - Discharge Instructions Follow Up With: NONE,PCP [Primary Care Provider] -
--- NOTE | 2018-12-07 14:35 | Electrocardiograph Report ---
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
== END 2018-12-06 09:15 | disposition home or self-care (01) ==
LOC: 3BNU 11:07 → EMEROOARM 11:07 → SUATTDRO 14:54 → 3BNU 15:43
PROVIDERS: ADMIT Internal Medicine; ATTEND Internal Medicine

== ENCOUNTER 2019-09-14 09:45 | Observation (INO) ==
[2019-09-14 10:49] LABS: Basophils % 0.4 %; Hematocrit 44.3 % (35.3-44.9); Hemoglobin 15.4 g/dL (11.5-15.4); Immature Granulocytes % 0.4 % (0-4); Lymphocytes # 0.3 K/mcL (0.6-4.6); Lymphocytes % 6.2 %; Mean Corpuscular HGB Conc 34.8 g/dL (31.6-35.5); Mean Corpuscular Hemoglobin 33.3 pg (28.0-33.3); Mean Corpuscular Volume 95.9 fL (83.0-100.0); Mean Platelet Volume 9.3 fL (9.4-12.4); Monocytes # 0.3 K/mcL (0.0-1.3); Monocytes % 4.7 %; Neutrophils # 4.8 K/mcL (1.6-8.9); Platelet Count 354 K/mcL (140-400); Red Blood Count 4.62 M/mcL (3.82-4.97); Red Cell Distribution Width 13.2 % (11.5-14.5); Segmented Neutrophils % 88.3 %; White Blood Count 5.5 K/mcL (4.3-11.1)
[2019-09-14 11:09] LABS: BUN/Creatinine Ratio 21 (6-26); Blood Urea Nitrogen 12 mg/dL (6-20); Calcium 9.6 mg/dL (8.6-10.3); Carbon Dioxide 20 mEq/L (23-29); Chloride 102 mEq/L (98-107); Glucose 148 mg/dL (70-105); Lipase 3 Units/L (11-82); Osmolality,Calculated 287 (280-300); Potassium 3.6 mEq/L (3.5-5.1); Sodium 137 mEq/L (136-145); eGFR For African Americans > 60 (> 60); eGFR For Non-African Americans > 60 (> 60)
[2019-09-14] MEDS ORDERED: 0.9 % Sodium Chloride 1,000 ML IVC ONE (11:16)
[2019-09-14] MEDS ORDERED: Ondansetron 4 MG/2 ML VIAL IVP ONE ×2 (11:17→11:58)
[2019-09-14] MEDS ORDERED: Isovue-370 500 ML BOTTLE IVP ONE (11:46)
[2019-09-14] MEDS ORDERED: *HR* Promethazine 25 MG/ML VIAL IVP ONE (12:30)
[2019-09-14] MEDS ORDERED: Ondansetron 4 MG/2 ML VIAL IVP PRN (12:34)
[2019-09-14] MEDS ORDERED: Naloxone 0.4 MG/ML INJ IVP PRN (12:34)
[2019-09-14] MEDS ORDERED: Pantoprazole 40 MG VIAL IVP ONE (12:43)
[2019-09-14] MEDS: 0.9 % Sodium Chloride 1,000 ML IVC SCH (13:47)
[2019-09-14] MEDS: Nicotine 21 MG PATCH.TD24 TD SCH (14:49)
[2019-09-14] MEDS: Promethazine 12.5 MG in 0.9 % Sodium Chloride 50 ML IVPB PRN ×2 (15:52→21:17)
[2019-09-14] MEDS: *HR* Heparin 5,000 UNIT/ML VIAL SQ SCH (17:34)
[2019-09-14] MEDS ORDERED: Acetaminophen IV 1,000 MG/100 ML INFUS..BTL IVPB ONE (20:35)
[2019-09-15 02:07] LABS: Bilirubin,Urine Negative (Negative); Blood,Urine Negative (Negative); Clarity,Urine Clear (Clear); Color,Urine Yellow (Yellow); Glucose,Urine (UA) Normal (Normal); Ketones,Urine 80 mg/dL (Negative); Leukocyte Esterase,Urine Negative (Negative); Nitrite,Urine Negative (Negative); PH,Urine 6.5 pH Units (5.0-8.0); Protein,Urine 30 mg/dL (Neg-Trace); Specific Gravity,Urine > 1.030 (1.010-1.025); Urobilinogen,Urine Normal (Normal)
[2019-09-15 02:09] LABS: Bacteria,Urine Few per hpf (None-Few); Hyaline Casts,Urine Few per lpf (None-Few); Squamous Epithelial Cell,Urine Many per lpf (None-Few); WBC,Urine 0-3 per hpf (0-3)
[2019-09-15] MEDS: 0.9 % Sodium Chloride 1,000 ML IVC SCH (03:58)
[2019-09-15] MEDS: Promethazine 12.5 MG in 0.9 % Sodium Chloride 50 ML IVPB PRN ×2 (03:58→10:45)
[2019-09-15] MEDS: *HR* Heparin 5,000 UNIT/ML VIAL SQ SCH ×2 (05:29→17:26)
[2019-09-15 06:09] LABS: Basophils % 0.3 %; Hematocrit 42.5 % (35.3-44.9); Hemoglobin 14.2 g/dL (11.5-15.4); Immature Granulocytes % 0.3 % (0-4); Lymphocytes % 16.6 %; Mean Corpuscular HGB Conc 33.4 g/dL (31.6-35.5); Mean Corpuscular Hemoglobin 33.6 pg (28.0-33.3); Mean Corpuscular Volume 100.5 fL (83.0-100.0); Mean Platelet Volume 9.6 fL (9.4-12.4); Monocytes # 0.7 K/mcL (0.0-1.3); Monocytes % 11.6 %; Neutrophils # 4.5 K/mcL (1.6-8.9); Platelet Count 303 K/mcL (140-400); Red Blood Count 4.23 M/mcL (3.82-4.97); Red Cell Distribution Width 13.1 % (11.5-14.5); Segmented Neutrophils % 71.2 %; White Blood Count 6.3 K/mcL (4.3-11.1)
[2019-09-15 06:30] LABS: BUN/Creatinine Ratio 15 (6-26); Blood Urea Nitrogen 8 mg/dL (6-20); Calcium 8.4 mg/dL (8.6-10.3); Carbon Dioxide 21 mEq/L (23-29); Chloride 104 mEq/L (98-107); Glucose 86 mg/dL (70-105); Osmolality,Calculated 282 (280-300); Phosphorous 2.5 mg/dL (2.7-4.5); Potassium 3.3 mEq/L (3.5-5.1); Sodium 137 mEq/L (136-145); eGFR For African Americans > 60 (> 60); eGFR For Non-African Americans > 60 (> 60)
[2019-09-15] MEDS: Nicotine 21 MG PATCH.TD24 TD SCH (07:44)
[2019-09-15] MEDS: Ondansetron 4 MG/2 ML VIAL IVP PRN ×2 (14:42→18:30)
[2019-09-16] MEDS ORDERED: Acetaminophen IV 1,000 MG/100 ML INFUS..BTL IVPB ONE (01:18)
[2019-09-16] MEDS: *HR* Heparin 5,000 UNIT/ML VIAL SQ SCH (05:09)
[2019-09-16 07:02] VITALS: BP 115/73
[2019-09-16] MEDS ORDERED: Ondansetron ODT 4 MG TAB.RAPDIS SL PRN (08:45)
[2019-09-16] MEDS: Nicotine 21 MG PATCH.TD24 TD SCH (09:30)
[2019-09-16] MEDS ORDERED: FLU Vac QV 19-20 (6Month+)/PF 0.5 ML SYRINGE IM ONE (09:36)
== END 2019-09-16 11:19 | disposition home or self-care (01) ==
LOC: 3ANU 09:45 → EMEROOARM 09:45 → SUATTDRO 13:25 → 3ANU 13:58
PROVIDERS: ADMIT Internal Medicine; ATTEND Family Medicine

== ENCOUNTER 2019-10-13 12:11 | Inpatient (IN) ==
[2019-10-13] MEDS ORDERED: 0.9 % Sodium Chloride 1,000 ML IVC ONE (12:39)
[2019-10-13] MEDS ORDERED: *HR* LORazepam 2 MG/ML VIAL IVP ONE (12:39)
[2019-10-13] MEDS ORDERED: 0.9 % Sodium Chloride 1,000 ML IV ONE (12:45)
[2019-10-13 12:58] LABS: Basophils # 0.1 K/mcL (0.0-0.2); Basophils % 0.8 %; Eosinophils % 0.4 %; Hematocrit 43.6 % (35.3-44.9); Hemoglobin 14.5 g/dL (11.5-15.4); Immature Granulocytes % 0.4 % (0-4); Lymphocytes # 1.5 K/mcL (0.6-4.6); Lymphocytes % 15.9 %; Mean Corpuscular HGB Conc 33.3 g/dL (31.6-35.5); Mean Corpuscular Hemoglobin 32.7 pg (28.0-33.3); Mean Corpuscular Volume 98.2 fL (83.0-100.0); Mean Platelet Volume 9.3 fL (9.4-12.4); Monocytes # 0.6 K/mcL (0.0-1.3); Monocytes % 6.1 %; Platelet Count 384 K/mcL (140-400); Red Blood Count 4.44 M/mcL (3.82-4.97); Red Cell Distribution Width 13.6 % (11.5-14.5); Segmented Neutrophils % 76.4 %; White Blood Count 9.2 K/mcL (4.3-11.1)
[2019-10-13 13:03] LABS: Prothrombin Time 10.9 Seconds (9.4-12.1)
[2019-10-13 13:21] LABS: Alanine Aminotransferase 35 Units/L (7-52); Albumin 4.8 g/dL (3.5-5.7); Albumin/Globulin Ratio 1.5 (1.1-2.2); Alkaline Phosphatase 70 Units/L (34-104); Aspartate Amino Transferase 32 Units/L (13-39); BUN/Creatinine Ratio 19 (6-26); Bilirubin,Total 0.8 mg/dL (0.3-1.0); Blood Urea Nitrogen 10 mg/dL (6-20); Calcium 9.7 mg/dL (8.6-10.3); Carbon Dioxide 22 mEq/L (23-29); Chloride 101 mEq/L (98-107); Ethanol < 10 mg/dL (Less than 10); Globulin 3.1 g/dL (2.4-3.5); Glucose 113 mg/dL (70-105); Lipase 14 Units/L (11-82); Magnesium 1.6 mg/dL (1.6-2.6); Osmolality,Calculated 288 (280-300); Phosphorous 3.3 mg/dL (2.7-4.5); Potassium 3.8 mEq/L (3.5-5.1); Sodium 139 mEq/L (136-145); Total Protein 7.9 g/dL (6.4-8.9); eGFR For African Americans > 60 (> 60); eGFR For Non-African Americans > 60 (> 60)
[2019-10-13] MEDS ORDERED: Promethazine 25 MG in 0.9 % Sodium Chloride 50 ML IVPB ONE (13:21)
[2019-10-13] MEDS ORDERED: Ondansetron 4 MG/2 ML VIAL IVP ONE (14:28)
[2019-10-13] MEDS ORDERED: Naloxone 0.4 MG/ML INJ IVP PRN (14:33)
[2019-10-13] MEDS ORDERED: *HR* LORazepam 2 MG/ML VIAL IVP PRN (14:35)
[2019-10-13] MEDS: *HR* LORazepam 2 MG/ML VIAL IVP PRN ×4 (15:38→22:21)
[2019-10-13] MEDS: Ringers Solution, Lactated 1,000 ML IVC SCH (16:56)
[2019-10-13] MEDS: Pantoprazole 40 MG VIAL IVP SCH (16:58)
[2019-10-13] MEDS: *HR* Promethazine 25 MG/ML VIAL IVP PRN ×2 (17:00→23:27)
[2019-10-13 19:24] LABS: Amphetamine Screen,Urine Negative ng/mL (Cutoff=1000); Barbiturate Screen,Urine Negative ng/mL (Cutoff=200); Benzodiazepines Screen,Urine Negative ng/mL (Cutoff=200); Cannabinoid Screen,Urine Positive ng/mL (Cutoff = 50); Cocaine Screen,Urine Negative ng/mL (Cutoff= 300); Opiate Screen,Urine Negative ng/mL (Cutoff=300); Phencyclidine Screen,Urine Negative ng/mL (Cutoff=25)
[2019-10-14] MEDS: Ringers Solution, Lactated 1,000 ML IVC SCH ×2 (01:12→08:59)
[2019-10-14] MEDS: Pantoprazole 40 MG VIAL IVP SCH ×2 (05:05→17:18)
[2019-10-14 06:54] LABS: Basophils # 0.1 K/mcL (0.0-0.2); Basophils % 0.7 %; Eosinophils # 0.1 K/mcL (0.0-0.6); Eosinophils % 0.6 %; Hematocrit 38.5 % (35.3-44.9); Immature Granulocytes % 0.2 % (0-4); Lymphocytes # 2.4 K/mcL (0.6-4.6); Lymphocytes % 26.6 %; Mean Corpuscular HGB Conc 33.5 g/dL (31.6-35.5); Mean Corpuscular Hemoglobin 33.3 pg (28.0-33.3); Mean Corpuscular Volume 99.5 fL (83.0-100.0); Mean Platelet Volume 9.7 fL (9.4-12.4); Monocytes % 10.8 %; Neutrophils # 5.4 K/mcL (1.6-8.9); Platelet Count 319 K/mcL (140-400); Red Blood Count 3.87 M/mcL (3.82-4.97); Red Cell Distribution Width 13.7 % (11.5-14.5); Segmented Neutrophils % 61.1 %; White Blood Count 8.8 K/mcL (4.3-11.1)
[2019-10-14 06:59] LABS: Hemoglobin 12.9 g/dL (11.5-15.4)
[2019-10-14 07:07] LABS: BUN/Creatinine Ratio 20 (6-26); Blood Urea Nitrogen 10 mg/dL (6-20); Calcium 8.9 mg/dL (8.6-10.3); Carbon Dioxide 25 mEq/L (23-29); Chloride 102 mEq/L (98-107); Glucose 73 mg/dL (70-105); Magnesium 1.7 mg/dL (1.6-2.6); Osmolality,Calculated 280 (280-300); Phosphorous 3.4 mg/dL (2.7-4.5); Potassium 3.1 mEq/L (3.5-5.1); Sodium 136 mEq/L (136-145); eGFR For African Americans > 60 (> 60); eGFR For Non-African Americans > 60 (> 60)
[2019-10-14] MEDS: Thiamine (B-1) 100 MG TABLET PO SCH (08:56)
[2019-10-14] MEDS: Folic Acid 1 MG TABLET PO SCH (08:57)
[2019-10-14] MEDS: *HR* LORazepam 2 MG/ML VIAL IVP PRN ×5 (09:03→21:34)
[2019-10-14] MEDS ORDERED: GI Cocktail 40 ML EACH PO ONE (12:53)
[2019-10-14] MEDS: *HR* Promethazine 25 MG/ML VIAL IVP PRN ×2 (13:49→19:50)
[2019-10-15] MEDS: *HR* LORazepam 2 MG/ML VIAL IVP PRN ×8 (00:52→22:30)
[2019-10-15] MEDS: Pantoprazole 40 MG VIAL IVP SCH ×2 (05:17→18:18)
[2019-10-15] MEDS: Nicotine 14 MG PATCH.TD24 TD SCH ×2 (05:17→07:58)
[2019-10-15] MEDS: Thiamine (B-1) 100 MG TABLET PO SCH (07:58)
[2019-10-15] MEDS: Folic Acid 1 MG TABLET PO SCH (07:58)
[2019-10-15] MEDS: *HR* Promethazine 25 MG/ML VIAL IVP PRN ×2 (08:00→22:39)
[2019-10-15] MEDS ORDERED: *HR* LORazepam 1 MG TABLET PO PRN (08:21)
[2019-10-15] MEDS: Vitamin B Complex/Vit C/Vit E 1 EACH TABLET PO SCH (15:33)
[2019-10-15] MEDS: *HR* Heparin 5,000 UNIT/ML VIAL SQ SCH (18:18)
[2019-10-15 18:37] LABS: Hematocrit 40.2 % (35.3-44.9); Hemoglobin 13.8 g/dL (11.5-15.4)
[2019-10-15 18:55] LABS: BUN/Creatinine Ratio 10 (6-26); Blood Urea Nitrogen 5 mg/dL (6-20); Calcium 9.1 mg/dL (8.6-10.3); Carbon Dioxide 24 mEq/L (23-29); Chloride 102 mEq/L (98-107); Glucose 104 mg/dL (70-105); Osmolality,Calculated 282 (280-300); Potassium 3.6 mEq/L (3.5-5.1); Sodium 137 mEq/L (136-145); eGFR For African Americans > 60 (> 60); eGFR For Non-African Americans > 60 (> 60)
[2019-10-16] MEDS: *HR* LORazepam 2 MG/ML VIAL IVP PRN ×3 (00:04→11:38)
[2019-10-16] MEDS ORDERED: Haloperidol Lactate 5 MG/ML VIAL IVP ONE (01:14)
[2019-10-16] MEDS ORDERED: *HR* Promethazine 25 MG/ML VIAL IVP ONE (01:14)
[2019-10-16] MEDS: *HR* Heparin 5,000 UNIT/ML VIAL SQ SCH (05:14)
[2019-10-16] MEDS: Pantoprazole 40 MG VIAL IVP SCH (05:14)
[2019-10-16] MEDS: Folic Acid 1 MG TABLET PO SCH (08:22)
[2019-10-16] MEDS: Nicotine 14 MG PATCH.TD24 TD SCH (08:23)
[2019-10-16] MEDS: Vitamin B Complex/Vit C/Vit E 1 EACH TABLET PO SCH (08:23)
[2019-10-16] MEDS: Thiamine (B-1) 100 MG TABLET PO SCH (08:23)
[2019-10-16 13:09] VITALS: BP 129/82
== END 2019-10-16 14:08 | disposition home or self-care (01) ==
LOC: SUATTDRO → EMEROOARM 12:11 → 3ANU 12:11 → SUATTDRO 15:04 → 3ANU 15:43
PROVIDERS: ADMIT Internal Medicine; ATTEND Internal Medicine

== ENCOUNTER 2019-10-26 08:52 | Observation (INO) ==
[2019-10-26] MEDS ORDERED: Ondansetron 4 MG/2 ML VIAL IVP ONE (09:11)
[2019-10-26] MEDS ORDERED: 0.9 % Sodium Chloride 1,000 ML IVC ONE (09:11)
[2019-10-26] MEDS ORDERED: *HR* LORazepam 2 MG/ML VIAL IVP ONE (09:13)
[2019-10-26 09:37] LABS: Bilirubin,Urine Small (Negative); Blood,Urine Negative (Negative); Clarity,Urine Cloudy (Clear); Color,Urine Yellow (Yellow); Glucose,Urine (UA) Normal (Normal); Ketones,Urine >=160 mg/dL (Negative); Leukocyte Esterase,Urine Small (Negative); Nitrite,Urine Negative (Negative); Protein,Urine Trace mg/dL (Neg-Trace); Specific Gravity,Urine 1.027 (1.010-1.025); Urobilinogen,Urine Normal (Normal)
[2019-10-26 09:49] LABS: Basophils # 0.1 K/mcL (0.0-0.2); Basophils % 0.9 %; Eosinophils % 0.2 %; Hematocrit 43.5 % (35.3-44.9); Hemoglobin 14.5 g/dL (11.5-15.4); Immature Granulocytes % 0.4 % (0-4); Lymphocytes # 1.9 K/mcL (0.6-4.6); Lymphocytes % 19.8 %; Mean Corpuscular HGB Conc 33.3 g/dL (31.6-35.5); Mean Corpuscular Hemoglobin 32.4 pg (28.0-33.3); Mean Corpuscular Volume 97.1 fL (83.0-100.0); Mean Platelet Volume 9.6 fL (9.4-12.4); Monocytes % 10.4 %; Neutrophils # 6.4 K/mcL (1.6-8.9); Platelet Count 497 K/mcL (140-400); Red Blood Count 4.48 M/mcL (3.82-4.97); Segmented Neutrophils % 68.3 %; White Blood Count 9.4 K/mcL (4.3-11.1)
[2019-10-26] MEDS: Multivitamin Liquid 15 ML UDC PO SCH (09:50)
[2019-10-26] MEDS ORDERED: Pantoprazole 40 MG VIAL IVP ONE (10:13)
[2019-10-26] MEDS ORDERED: GI Cocktail 40 ML EACH PO ONE (10:13)
[2019-10-26] MEDS ORDERED: *HR* LORazepam 2 MG/ML VIAL IVP PRN (10:14)
[2019-10-26 10:24] LABS: Alanine Aminotransferase 106 Units/L (7-52); Albumin 4.9 g/dL (3.5-5.7); Alkaline Phosphatase 89 Units/L (34-104); Aspartate Amino Transferase 30 Units/L (13-39); BUN/Creatinine Ratio 23 (6-26); Bilirubin,Total 0.6 mg/dL (0.3-1.0); Blood Urea Nitrogen 15 mg/dL (6-20); Calcium 10.2 mg/dL (8.6-10.3); Carbon Dioxide 19 mEq/L (23-29); Chloride 101 mEq/L (98-107); Ethanol < 10 mg/dL (Less than 10); Globulin 2.5 g/dL (2.4-3.5); Glucose 81 mg/dL (70-105); Lipase 9 Units/L (11-82); Osmolality,Calculated 282 (280-300); Potassium 3.9 mEq/L (3.5-5.1); Sodium 136 mEq/L (136-145); Total Protein 7.4 g/dL (6.4-8.9); eGFR For African Americans > 60 (> 60); eGFR For Non-African Americans > 60 (> 60)
[2019-10-26] MEDS: *HR* LORazepam 2 MG/ML VIAL IVP PRN ×7 (11:04→22:45)
[2019-10-26] MEDS ORDERED: Naloxone 0.4 MG/ML INJ IVP PRN (11:41)
[2019-10-26] MEDS ORDERED: Ondansetron ODT 4 MG TAB.RAPDIS SL PRN (17:24)
[2019-10-26] MEDS ORDERED: Thiamine (B-1) 100 MG, Folic Acid 1 MG, MVI, adult with vitamin K 10 ML in 0.9 % Sodi... IVPB SCH (18:00)
[2019-10-26] MEDS ORDERED: *HR* Promethazine 25 MG/ML VIAL IVP PRN (22:29)
[2019-10-26] MEDS: Nicotine 21 MG PATCH.TD24 TD SCH (22:46)
[2019-10-26] MEDS: Naltrexone HCl 50 MG TABLET PO SCH (22:46)
[2019-10-26] MEDS ORDERED: traZODone 50 MG TABLET PO ONE (23:23)
[2019-10-27] MEDS: *HR* LORazepam 2 MG/ML VIAL IVP PRN ×3 (00:02→05:08)
[2019-10-27 05:18] LABS: Alanine Aminotransferase 60 Units/L (7-52); Albumin 3.8 g/dL (3.5-5.7); Alkaline Phosphatase 61 Units/L (34-104); Aspartate Amino Transferase 15 Units/L (13-39); BUN/Creatinine Ratio 17 (6-26); Bilirubin,Total 0.6 mg/dL (0.3-1.0); Blood Urea Nitrogen 9 mg/dL (6-20); Calcium 8.8 mg/dL (8.6-10.3); Carbon Dioxide 24 mEq/L (23-29); Chloride 106 mEq/L (98-107); Globulin 1.9 g/dL (2.4-3.5); Glucose 121 mg/dL (70-105); Osmolality,Calculated 280 (280-300); Potassium 3.1 mEq/L (3.5-5.1); Sodium 135 mEq/L (136-145); Total Protein 5.7 g/dL (6.4-8.9); eGFR For African Americans > 60 (> 60); eGFR For Non-African Americans > 60 (> 60)
[2019-10-27 06:55] VITALS: BP 116/79
[2019-10-27] MEDS: Naltrexone HCl 50 MG TABLET PO SCH (08:37)
[2019-10-27] MEDS: Multivitamin Liquid 15 ML UDC PO SCH (08:37)
[2019-10-27] MEDS: Nicotine 21 MG PATCH.TD24 TD SCH (08:38)
== END 2019-10-27 09:38 | disposition home or self-care (01) ==
LOC: EMEROOARM 08:52 → 2NENU 08:52 → 3BNU 11:45
PROVIDERS: ADMIT Internal Medicine; ATTEND Internal Medicine

== ENCOUNTER 2020-01-05 11:07 | Observation (INO) ==
[2020-01-05] MEDS ORDERED: 0.9 % Sodium Chloride 1,000 ML IVC ONE (11:29)
[2020-01-05] MEDS ORDERED: Ondansetron 4 MG/2 ML VIAL IVP ONE ×2 (11:29→14:01)
[2020-01-05] MEDS ORDERED: Pantoprazole 40 MG VIAL IVP ONE (11:29)
[2020-01-05] MEDS ORDERED: *HR* Promethazine 25 MG/ML VIAL IVP STA ×2 (11:43→14:35)
[2020-01-05] MEDS ORDERED: Hydrocortisone Sodium Succ 100 MG/2 ML VIAL IVP ONE (11:44)
[2020-01-05 12:30] LABS: Basophils % 0.2 %; Hematocrit 40.5 % (35.3-44.9); Hemoglobin 13.6 g/dL (11.5-15.4); Immature Granulocytes % 0.4 % (0-4); Lymphocytes # 1.4 K/mcL (0.6-4.6); Lymphocytes % 8.8 %; Mean Corpuscular HGB Conc 33.6 g/dL (31.6-35.5); Mean Corpuscular Hemoglobin 32.3 pg (28.0-33.3); Mean Corpuscular Volume 96.2 fL (83.0-100.0); Mean Platelet Volume 9.7 fL (9.4-12.4); Monocytes # 0.8 K/mcL (0.0-1.3); Monocytes % 4.9 %; Neutrophils # 13.7 K/mcL (1.6-8.9); Platelet Count 476 K/mcL (140-400); Red Blood Count 4.21 M/mcL (3.82-4.97); Red Cell Distribution Width 12.6 % (11.5-14.5); Segmented Neutrophils % 85.7 %
[2020-01-05 12:52] LABS: Alanine Aminotransferase 12 Units/L (7-52); Albumin 4.6 g/dL (3.5-5.7); Albumin/Globulin Ratio 1.9 (1.1-2.2); Alkaline Phosphatase 55 Units/L (34-104); Aspartate Amino Transferase 11 Units/L (13-39); BUN/Creatinine Ratio 35 (6-26); Bilirubin,Direct 0.2 mg/dL (0.0-0.2); Bilirubin,Indirect 0.5 mg/dL (0.0-1.0); Bilirubin,Total 0.7 mg/dL (0.3-1.0); Blood Urea Nitrogen 18 mg/dL (6-20); Calcium 9.4 mg/dL (8.6-10.3); Carbon Dioxide 24 mEq/L (23-29); Chloride 101 mEq/L (98-107); Globulin 2.4 g/dL (2.4-3.5); Glucose 89 mg/dL (70-105); Lipase 4 Units/L (11-82); Osmolality,Calculated 285 (280-300); Potassium 3.3 mEq/L (3.5-5.1); Sodium 137 mEq/L (136-145); Troponin I < 0.03 ng/mL (< 0.04); eGFR For African Americans > 60 (> 60); eGFR For Non-African Americans > 60 (> 60)
[2020-01-05 13:29] LABS: Bilirubin,Urine Small (Negative); Blood,Urine Negative (Negative); Clarity,Urine Clear (Clear); Color,Urine Yellow (Yellow); Glucose,Urine (UA) Normal (Normal); Ketones,Urine >=160 mg/dL (Negative); Leukocyte Esterase,Urine Negative (Negative); Nitrite,Urine Negative (Negative); Protein,Urine 30 mg/dL (Neg-Trace); Specific Gravity,Urine 1.029 (1.010-1.025); Urobilinogen,Urine Normal (Normal)
[2020-01-05 13:30] LABS: RBC,Urine 0-3 per hpf (0-3)
[2020-01-05 13:39] LABS: Hyaline Casts,Urine Few per lpf (None-Few)
[2020-01-05 13:40] LABS: Squamous Epithelial Cell,Urine Moderate per lpf (None-Few)
[2020-01-05 13:41] LABS: Bacteria,Urine Moderate per hpf (None-Few); WBC,Urine 0-3 per hpf (0-3)
[2020-01-05] MEDS ORDERED: Naloxone 0.4 MG/ML INJ IVP PRN (17:18)
[2020-01-05] MEDS ORDERED: Potassium Chloride 40 MEQ, Lidocaine 1% 2 ML in 0.9 % Sodium Chloride 500 ML IVPB ONE (17:23)
[2020-01-05] MEDS ORDERED: GI Cocktail 40 ML EACH PO ONE (17:27)
[2020-01-05] MEDS ORDERED: Ketorolac 15 MG/ML VIAL IM ONE (17:47)
[2020-01-05] MEDS ORDERED: Hydrocortisone Sodium Succ 100 MG/2 ML VIAL IVP SCH (18:00)
[2020-01-05] MEDS: *HR* Heparin 5,000 UNIT/ML VIAL SQ SCH (18:29)
[2020-01-05] MEDS: 0.9 % Sodium Chloride 1,000 ML IVC SCH (18:32)
[2020-01-05 21:12] LABS: Amphetamine Screen,Urine Negative ng/mL (Cutoff=1000); Barbiturate Screen,Urine Negative ng/mL (Cutoff=200); Benzodiazepines Screen,Urine Negative ng/mL (Cutoff=200); Cannabinoid Screen,Urine Positive ng/mL (Cutoff = 50); Cocaine Screen,Urine Negative ng/mL (Cutoff= 300); Opiate Screen,Urine Negative ng/mL (Cutoff=300); Phencyclidine Screen,Urine Negative ng/mL (Cutoff=25)
[2020-01-06] MEDS: Hydrocortisone Sodium Succ 100 MG/2 ML VIAL IVP SCH ×4 (00:14→21:04)
[2020-01-06] MEDS: 0.9 % Sodium Chloride 1,000 ML IVC SCH (00:21)
[2020-01-06] MEDS: *HR* Heparin 5,000 UNIT/ML VIAL SQ SCH ×2 (05:32→16:50)
[2020-01-06 06:21] LABS: Hematocrit 37.2 % (35.3-44.9); Hemoglobin 12.5 g/dL (11.5-15.4); Mean Corpuscular HGB Conc 33.6 g/dL (31.6-35.5); Mean Corpuscular Hemoglobin 32.6 pg (28.0-33.3); Mean Corpuscular Volume 97.1 fL (83.0-100.0); Mean Platelet Volume 10.1 fL (9.4-12.4); Platelet Count 411 K/mcL (140-400); Red Blood Count 3.83 M/mcL (3.82-4.97); Red Cell Distribution Width 12.6 % (11.5-14.5); White Blood Count 10.6 K/mcL (4.3-11.1)
[2020-01-06 06:37] LABS: BUN/Creatinine Ratio 26 (6-26); Blood Urea Nitrogen 16 mg/dL (6-20); Calcium 8.7 mg/dL (8.6-10.3); Carbon Dioxide 24 mEq/L (23-29); Chloride 108 mEq/L (98-107); Glucose 91 mg/dL (70-105); Magnesium 2.3 mg/dL (1.6-2.6); Osmolality,Calculated 287 (280-300); Sodium 138 mEq/L (136-145); eGFR For African Americans > 60 (> 60); eGFR For Non-African Americans > 60 (> 60)
[2020-01-06] MEDS: *HR* Promethazine 25 MG/ML VIAL IVP PRN ×3 (08:11→22:25)
[2020-01-06] MEDS: Aspirin 81 MG TAB.CHEW PO SCH ×2 (08:11)
[2020-01-06] MEDS: Ondansetron 4 MG/2 ML VIAL IVP PRN (11:04)
[2020-01-06] MEDS ORDERED: 0.9 % Sodium Chloride 1,000 ML ONE (16:39)
[2020-01-06] MEDS ORDERED: 0.9 % Sodium Chloride 1,000 ML IVC SCH (16:45)
[2020-01-06] MEDS: Pantoprazole 40 MG VIAL IVP SCH (16:48)
[2020-01-07] MEDS: Hydrocortisone Sodium Succ 100 MG/2 ML VIAL IVP SCH ×2 (04:16→09:59)
[2020-01-07] MEDS: Pantoprazole 40 MG VIAL IVP SCH ×2 (06:17→18:06)
[2020-01-07] MEDS: *HR* Heparin 5,000 UNIT/ML VIAL SQ SCH ×2 (06:17→18:06)
[2020-01-07 06:20] LABS: Hematocrit 37.8 % (35.3-44.9); Hemoglobin 12.7 g/dL (11.5-15.4); Mean Corpuscular HGB Conc 33.6 g/dL (31.6-35.5); Mean Corpuscular Hemoglobin 32.6 pg (28.0-33.3); Mean Corpuscular Volume 97.2 fL (83.0-100.0); Mean Platelet Volume 10.4 fL (9.4-12.4); Platelet Count 324 K/mcL (140-400); Red Blood Count 3.89 M/mcL (3.82-4.97); Red Cell Distribution Width 12.1 % (11.5-14.5); White Blood Count 15.3 K/mcL (4.3-11.1)
[2020-01-07 06:44] LABS: BUN/Creatinine Ratio 20 (6-26); Blood Urea Nitrogen 10 mg/dL (6-20); Calcium 8.8 mg/dL (8.6-10.3); Carbon Dioxide 22 mEq/L (23-29); Chloride 110 mEq/L (98-107); Glucose 130 mg/dL (70-105); Magnesium 2.2 mg/dL (1.6-2.6); Osmolality,Calculated 289 (280-300); Phosphorous 3.3 mg/dL (2.7-4.5); Potassium 3.8 mEq/L (3.5-5.1); Sodium 139 mEq/L (136-145); eGFR For African Americans > 60 (> 60); eGFR For Non-African Americans > 60 (> 60)
[2020-01-07] MEDS: *HR* Promethazine 25 MG/ML VIAL IVP PRN ×2 (08:09→18:06)
[2020-01-07] MEDS: Aspirin 81 MG TAB.CHEW PO SCH (09:51)
[2020-01-07] MEDS: Ondansetron 4 MG/2 ML VIAL IVP PRN (10:01)
[2020-01-07] MEDS ORDERED: *HR* Promethazine 25 MG/ML VIAL IVP ONE (11:00)
[2020-01-07] MEDS: cephALEXin 500 MG CAPSULE PO SCH ×2 (17:57→20:19)
[2020-01-07] MEDS ORDERED: Ketorolac 15 MG/ML VIAL IVP ONE (19:57)
[2020-01-07] MEDS ORDERED: Hydrocortisone Sodium Succ 100 MG/2 ML VIAL IVP SCH (21:00)
[2020-01-07] MEDS ORDERED: cephALEXin 500 MG CAPSULE PO SCH (21:00)
[2020-01-07 22:28] VITALS: BP 132/80
[2020-01-07] MEDS ORDERED: *HR* HYDROmorphone (PF) 1 MG/ML SYRINGE IVP ONE (22:35)
== END 2020-01-07 22:52 | disposition left against medical advice (07) ==
LOC: 3BNU 11:07 → EMEROOARM 11:07 → SUATTDRO 16:47 → 3BNU 17:29
PROVIDERS: ADMIT Internal Medicine; ATTEND Internal Medicine

== ENCOUNTER 2020-03-07 08:17 | Observation (INO) ==
[2020-03-07 09:37] LABS: Basophils % 0.2 %; Eosinophils % 0.1 %; Hematocrit 42.4 % (35.3-44.9); Hemoglobin 14.1 g/dL (11.5-15.4); Immature Granulocytes % 0.6 % (0-4); Lymphocytes # 0.8 K/mcL (0.6-4.6); Lymphocytes % 5.8 %; Mean Corpuscular HGB Conc 33.3 g/dL (31.6-35.5); Mean Corpuscular Hemoglobin 31.4 pg (28.0-33.3); Mean Corpuscular Volume 94.4 fL (83.0-100.0); Mean Platelet Volume 9.6 fL (9.4-12.4); Monocytes # 0.4 K/mcL (0.0-1.3); Monocytes % 2.8 %; Neutrophils # 12.1 K/mcL (1.6-8.9); Platelet Count 435 K/mcL (140-400); Red Blood Count 4.49 M/mcL (3.82-4.97); Red Cell Distribution Width 13.5 % (11.5-14.5); Segmented Neutrophils % 90.5 %; White Blood Count 13.4 K/mcL (4.3-11.1)
[2020-03-07] MEDS ORDERED: Hydrocortisone Sodium Succ 100 MG/2 ML VIAL IVP ONE (09:42)
[2020-03-07] MEDS ORDERED: 0.9 % Sodium Chloride 1,000 ML IVC ONE ×2 (09:42→11:20)
[2020-03-07] MEDS ORDERED: *HR* Promethazine 25 MG/ML VIAL IVP ONE (09:43)
[2020-03-07] MEDS ORDERED: Isovue-370 500 ML BOTTLE IVP ONE (09:44)
[2020-03-07] MEDS ORDERED: Pantoprazole 80 MG in 0.9 % Sodium Chloride 50 ML IVPB ONE (09:51)
[2020-03-07 09:58] LABS: Alanine Aminotransferase 11 Units/L (7-52); Albumin 5.1 g/dL (3.5-5.7); Albumin/Globulin Ratio 1.8 (1.1-2.2); Alkaline Phosphatase 58 Units/L (34-104); Amylase 25 Units/L (29-103); Aspartate Amino Transferase 11 Units/L (13-39); BUN/Creatinine Ratio 19 (6-26); Bilirubin,Direct 0.2 mg/dL (0.0-0.2); Bilirubin,Indirect 0.5 mg/dL (0.0-1.0); Bilirubin,Total 0.7 mg/dL (0.3-1.0); Blood Urea Nitrogen 11 mg/dL (6-20); Calcium 9.9 mg/dL (8.6-10.3); Carbon Dioxide 24 mEq/L (23-29); Chloride 100 mEq/L (98-107); Globulin 2.8 g/dL (2.4-3.5); Glucose 164 mg/dL (70-105); Lipase 4 Units/L (11-82); Osmolality,Calculated 289 (280-300); Potassium 3.5 mEq/L (3.5-5.1); Sodium 138 mEq/L (136-145); Total Protein 7.9 g/dL (6.4-8.9); eGFR For African Americans > 60 (> 60); eGFR For Non-African Americans > 60 (> 60)
[2020-03-07] MEDS ORDERED: Hydrocortisone Sodium Succ 100 MG/2 ML VIAL ONE (10:10)
[2020-03-07] MEDS ORDERED: *HR* Promethazine 25 MG/ML VIAL ONE (10:10)
[2020-03-07] MEDS ORDERED: 0.9 % Sodium Chloride 1,000 ML ONE (10:10)
[2020-03-07] MEDS ORDERED: Ondansetron 4 MG/2 ML VIAL IVP STA (11:21)
[2020-03-07 11:39] LABS: Bilirubin,Urine Negative (Negative); Blood,Urine Negative (Negative); Clarity,Urine Clear (Clear); Color,Urine Light-Yellow (Yellow); Glucose,Urine (UA) Normal (Normal); Ketones,Urine 60 mg/dL (Negative); Leukocyte Esterase,Urine Negative (Negative); Nitrite,Urine Negative (Negative); Protein,Urine Trace mg/dL (Neg-Trace); Specific Gravity,Urine 1.027 (1.010-1.025); Urobilinogen,Urine Normal (Normal)
[2020-03-07] MEDS ORDERED: Ringers Solution, Lactated 1,000 ML IVC ONE (14:55)
[2020-03-07] MEDS ORDERED: *HR* Promethazine 25 MG/ML VIAL IVP PRN ×2 (15:02→18:01)
[2020-03-07] MEDS ORDERED: Promethazine 25 MG in 0.9 % Sodium Chloride 50 ML IVPB PRN (15:08)
[2020-03-07 15:23] LABS: Amphetamine Screen,Urine Negative ng/mL (Cutoff=1000); Barbiturate Screen,Urine Negative ng/mL (Cutoff=200); Benzodiazepines Screen,Urine Negative ng/mL (Cutoff=200); Cannabinoid Screen,Urine Positive ng/mL (Cutoff = 50); Cocaine Screen,Urine Negative ng/mL (Cutoff= 300); Opiate Screen,Urine Negative ng/mL (Cutoff=300); Phencyclidine Screen,Urine Negative ng/mL (Cutoff=25)
[2020-03-07 16:45] LABS: Magnesium 1.7 mg/dL (1.6-2.6); Phosphorous 3.3 mg/dL (2.7-4.5)
[2020-03-07] MEDS: Promethazine 25 MG in 0.9 % Sodium Chloride 50 ML IVPB PRN (18:16)
[2020-03-07] MEDS: Hydrocortisone Sodium Succ 100 MG/2 ML VIAL IVP SCH (18:16)
[2020-03-07] MEDS ORDERED: Acetaminophen IV 500 MG/50 ML BAG IVPB ONE (22:16)
[2020-03-08] MEDS: Hydrocortisone Sodium Succ 100 MG/2 ML VIAL IVP SCH ×3 (00:05→11:55)
[2020-03-08] MEDS ORDERED: Ondansetron 4 MG/2 ML VIAL IVP ONE (00:26)
[2020-03-08] MEDS: Promethazine 25 MG in 0.9 % Sodium Chloride 50 ML IVPB PRN ×2 (02:33→09:52)
[2020-03-08 05:49] LABS: Hematocrit 42.8 % (35.3-44.9); Mean Corpuscular HGB Conc 32.7 g/dL (31.6-35.5); Mean Corpuscular Hemoglobin 31.8 pg (28.0-33.3); Mean Corpuscular Volume 97.3 fL (83.0-100.0); Mean Platelet Volume 10.3 fL (9.4-12.4); Platelet Count 395 K/mcL (140-400); Red Cell Distribution Width 13.7 % (11.5-14.5); White Blood Count 15.4 K/mcL (4.3-11.1)
[2020-03-08] MEDS ORDERED: *HR* Enoxaparin 40 MG/0.4 ML SYRINGE SQ SCH (06:00)
[2020-03-08 06:09] LABS: BUN/Creatinine Ratio 15 (6-26); Blood Urea Nitrogen 8 mg/dL (6-20); Calcium 9.4 mg/dL (8.6-10.3); Carbon Dioxide 25 mEq/L (23-29); Chloride 103 mEq/L (98-107); Glucose 102 mg/dL (70-105); Osmolality,Calculated 283 (280-300); Potassium 3.4 mEq/L (3.5-5.1); Sodium 137 mEq/L (136-145); eGFR For African Americans > 60 (> 60); eGFR For Non-African Americans > 60 (> 60)
[2020-03-08] MEDS ORDERED: Potassium Chloride 20 MEQ, Lidocaine 1% 2 ML in 0.9 % Sodium Chloride 250 ML IVPB ONE (09:32)
[2020-03-08] MEDS ORDERED: Ondansetron 4 MG/2 ML VIAL IVP PRN (12:08)
[2020-03-08 15:47] VITALS: BP 118/80
[2020-03-09] MEDS ORDERED: Hydrocortisone 10 MG TABLET PO SCH (09:00)
== END 2020-03-08 18:07 | disposition home or self-care (01) ==
LOC: EMEROOARM 08:17 → 3BNU 08:17
PROVIDERS: ADMIT Internal Medicine; ATTEND Internal Medicine

== ENCOUNTER 2020-03-09 19:32 | Observation (INO) ==
[2020-03-09] MEDS ORDERED: Ondansetron 4 MG/2 ML VIAL IVP ONE (20:27)
[2020-03-09] MEDS ORDERED: *HR* FentaNYL (PF) 100 MCG/2 ML VIAL IVP ONE (20:27)
[2020-03-09] MEDS ORDERED: 0.9 % Sodium Chloride 1,000 ML IVC ONE (20:27)
[2020-03-09 20:29] LABS: Basophils % 0.3 %; Hematocrit 41.7 % (35.3-44.9); Hemoglobin 14.2 g/dL (11.5-15.4); Immature Granulocytes % 0.5 % (0-4); Lymphocytes # 1.4 K/mcL (0.6-4.6); Lymphocytes % 13.4 %; Mean Corpuscular HGB Conc 34.1 g/dL (31.6-35.5); Mean Corpuscular Hemoglobin 32.6 pg (28.0-33.3); Mean Corpuscular Volume 95.9 fL (83.0-100.0); Mean Platelet Volume 9.5 fL (9.4-12.4); Monocytes # 0.8 K/mcL (0.0-1.3); Monocytes % 7.2 %; Neutrophils # 8.4 K/mcL (1.6-8.9); Platelet Count 414 K/mcL (140-400); Red Blood Count 4.35 M/mcL (3.82-4.97); Red Cell Distribution Width 13.1 % (11.5-14.5); Segmented Neutrophils % 78.6 %; White Blood Count 10.6 K/mcL (4.3-11.1)
[2020-03-09 20:42] LABS: Amorphous Sediment,Urine Few per hpf (None-Few); Bilirubin,Urine Negative (Negative); Blood,Urine Negative (Negative); Clarity,Urine Turbid (Clear); Color,Urine Light-Yellow (Yellow); Glucose,Urine (UA) Normal (Normal); Ketones,Urine 10 mg/dL (Negative); Leukocyte Esterase,Urine Trace (Negative); Mucus,Urine Few per lpf (None-Few); Nitrite,Urine Negative (Negative); Protein,Urine Negative (Neg-Trace); RBC,Urine 0-3 per hpf (0-3); Specific Gravity,Urine 1.016 (1.010-1.025); Squamous Epithelial Cell,Urine Few per hpf (None-Few); Urobilinogen,Urine Normal (Normal); WBC,Urine 0-3 per hpf (0-3)
[2020-03-09 20:50] LABS: Alanine Aminotransferase 8 Units/L (7-52); Albumin 4.2 g/dL (3.5-5.7); Albumin/Globulin Ratio 1.8 (1.1-2.2); Alkaline Phosphatase 44 Units/L (34-104); Aspartate Amino Transferase 9 Units/L (13-39); BUN/Creatinine Ratio 18 (6-26); Bilirubin,Direct 0.1 mg/dL (0.0-0.2); Bilirubin,Indirect 0.5 mg/dL (0.0-1.0); Bilirubin,Total 0.6 mg/dL (0.3-1.0); Blood Urea Nitrogen 10 mg/dL (6-20); Calcium 8.8 mg/dL (8.6-10.3); Carbon Dioxide 25 mEq/L (23-29); Chloride 104 mEq/L (98-107); Globulin 2.4 g/dL (2.4-3.5); Glucose 96 mg/dL (70-105); Lipase 10 Units/L (11-82); Osmolality,Calculated 283 (280-300); Potassium 3.3 mEq/L (3.5-5.1); Sodium 137 mEq/L (136-145); Total Protein 6.6 g/dL (6.4-8.9); eGFR For African Americans > 60 (> 60); eGFR For Non-African Americans > 60 (> 60)
[2020-03-09] MEDS: Potassium Chloride Elixir 20 MEQ/15 ML UDC PO ONE ×2 (21:30→22:20)
[2020-03-09] MEDS ORDERED: *HR* Promethazine 25 MG/ML VIAL IVP ONE (21:53)
[2020-03-09] MEDS ORDERED: Morphine Sulfate 2 MG/ML SYRINGE IVP ONE (21:54)
[2020-03-09] MEDS ORDERED: Ketorolac 15 MG/ML VIAL IVP PRN (22:46)
[2020-03-09] MEDS ORDERED: Naloxone 0.4 MG/ML INJ IVP PRN (22:46)
[2020-03-09] MEDS ORDERED: Hydrocortisone Sodium Succ 100 MG/2 ML VIAL IVP ONE (22:49)
[2020-03-09] MEDS ORDERED: *HR* Promethazine 25 MG/ML VIAL IVP PRN (22:51)
[2020-03-09] MEDS ORDERED: Ondansetron 4 MG/2 ML VIAL IVP PRN (22:51)
[2020-03-09] MEDS ORDERED: Ringers Solution, Lactated 1,000 ML IVC SCH (23:00)
[2020-03-09] MEDS ORDERED: Potassium Chloride 40 MEQ, Lidocaine 1% 2 ML in 0.9 % Sodium Chloride 500 ML IVPB ONE (23:00)
[2020-03-10 05:40] LABS: Basophils % 0.2 %; Hematocrit 38.1 % (35.3-44.9); Immature Granulocytes % 0.6 % (0-4); Lymphocytes # 1.2 K/mcL (0.6-4.6); Lymphocytes % 13.4 %; Mean Corpuscular HGB Conc 33.1 g/dL (31.6-35.5); Mean Corpuscular Hemoglobin 31.7 pg (28.0-33.3); Mean Platelet Volume 9.9 fL (9.4-12.4); Monocytes # 0.6 K/mcL (0.0-1.3); Monocytes % 7.1 %; Neutrophils # 6.8 K/mcL (1.6-8.9); Platelet Count 380 K/mcL (140-400); Red Blood Count 3.97 M/mcL (3.82-4.97); Red Cell Distribution Width 13.1 % (11.5-14.5); Segmented Neutrophils % 78.7 %; White Blood Count 8.6 K/mcL (4.3-11.1)
[2020-03-10 05:41] LABS: Hemoglobin 12.6 g/dL (11.5-15.4)
[2020-03-10 05:59] LABS: BUN/Creatinine Ratio 17 (6-26); Blood Urea Nitrogen 8 mg/dL (6-20); Calcium 8.6 mg/dL (8.6-10.3); Carbon Dioxide 23 mEq/L (23-29); Chloride 104 mEq/L (98-107); Glucose 127 mg/dL (70-105); Osmolality,Calculated 282 (280-300); Sodium 136 mEq/L (136-145); eGFR For African Americans > 60 (> 60); eGFR For Non-African Americans > 60 (> 60)
[2020-03-10] MEDS ORDERED: *HR* Enoxaparin 40 MG/0.4 ML SYRINGE SQ SCH (06:00)
[2020-03-10] MEDS ORDERED: Hydrocortisone 10 MG TABLET PO SCH (09:00)
[2020-03-10 09:39] VITALS: BP 130/77
== END 2020-03-10 10:32 | disposition home or self-care (01) ==
LOC: 3BNU 19:32 → EMEROOARM 19:32 → SUATTDRO 22:57 → 3BNU 23:31
PROVIDERS: ADMIT Internal Medicine; ATTEND Internal Medicine

== ENCOUNTER 2020-04-16 10:28 | Inpatient (IN) ==
[2020-04-16] MEDS ORDERED: Vitamin B Complex/Vit C/Vit E 1 EACH TABLET PO STA (10:59)
[2020-04-16] MEDS ORDERED: *HR* LORazepam 2 MG/ML VIAL IVP PRN ×3 (10:59)
[2020-04-16] MEDS ORDERED: Folic Acid 1 MG TABLET PO STA (10:59)
[2020-04-16] MEDS ORDERED: Thiamine (B-1) 100 MG TABLET PO STA (10:59)
[2020-04-16] MEDS ORDERED: *HR* LORazepam 2 MG/ML VIAL IVP ONE (11:24)
[2020-04-16 11:44] LABS: Basophils # 0.1 K/mcL (0.0-0.2); Basophils % 0.5 %; Eosinophils % 0.1 %; Hematocrit 43.7 % (35.3-44.9); Hemoglobin 14.5 g/dL (11.5-15.4); Immature Granulocytes % 0.3 % (0-4); Lymphocytes # 2.5 K/mcL (0.6-4.6); Lymphocytes % 16.7 %; Mean Corpuscular HGB Conc 33.2 g/dL (31.6-35.5); Mean Corpuscular Volume 96.5 fL (83.0-100.0); Mean Platelet Volume 9.2 fL (9.4-12.4); Monocytes # 1.2 K/mcL (0.0-1.3); Monocytes % 7.8 %; Platelet Count 449 K/mcL (140-400); Red Blood Count 4.53 M/mcL (3.82-4.97); Red Cell Distribution Width 14.1 % (11.5-14.5); Segmented Neutrophils % 74.6 %; White Blood Count 14.7 K/mcL (4.3-11.1)
[2020-04-16 12:02] LABS: Alanine Aminotransferase 16 Units/L (7-52); Albumin 4.8 g/dL (3.5-5.7); Alkaline Phosphatase 59 Units/L (34-104); Aspartate Amino Transferase 15 Units/L (13-39); BUN/Creatinine Ratio 18 (6-26); Bilirubin,Total 0.7 mg/dL (0.3-1.0); Blood Urea Nitrogen 12 mg/dL (6-20); Calcium 9.9 mg/dL (8.6-10.3); Carbon Dioxide 23 mEq/L (23-29); Chloride 101 mEq/L (98-107); Ethanol 217 mg/dL (Less than 10); Globulin 2.4 g/dL (2.4-3.5); Glucose 82 mg/dL (70-105); Osmolality,Calculated 283 (280-300); Potassium 2.9 mEq/L (3.5-5.1); Sodium 137 mEq/L (136-145); Total Protein 7.2 g/dL (6.4-8.9); eGFR For African Americans > 60 (> 60); eGFR For Non-African Americans > 60 (> 60)
[2020-04-16] MEDS ORDERED: Potassium Effervescent 25 MEQ TABLET.EFF PO ONE (12:12)
[2020-04-16 12:20] LABS: Amphetamine Screen,Urine Negative ng/mL (Cutoff=1000); Barbiturate Screen,Urine Negative ng/mL (Cutoff=200); Benzodiazepines Screen,Urine Negative ng/mL (Cutoff=200); Cannabinoid Screen,Urine Positive ng/mL (Cutoff = 50); Cocaine Screen,Urine Negative ng/mL (Cutoff= 300); Opiate Screen,Urine Negative ng/mL (Cutoff=300); Phencyclidine Screen,Urine Negative ng/mL (Cutoff=25)
[2020-04-16] MEDS: *HR* Promethazine 25 MG/ML VIAL IVP PRN ×3 (12:24→21:14)
[2020-04-16] MEDS ORDERED: Ondansetron 4 MG/2 ML VIAL IVP PRN (12:53)
[2020-04-16] MEDS ORDERED: Naloxone 0.4 MG/ML INJ IVP PRN (12:53)
[2020-04-16] MEDS ORDERED: Perflutren Lipid Microsphere 1.3 ML in 0.9 % Sodium Chloride 8.7 ML IVP PRN (13:02)
[2020-04-16] MEDS: *HR* LORazepam 2 MG/ML VIAL IVP PRN ×6 (13:29→21:59)
[2020-04-16 14:30] LABS: Bilirubin,Urine Negative (Negative); Blood,Urine Negative (Negative); Clarity,Urine Clear (Clear); Color,Urine Colorless (Yellow); Glucose,Urine (UA) Normal (Normal); Ketones,Urine Negative (Negative); Leukocyte Esterase,Urine Negative (Negative); Nitrite,Urine Negative (Negative); PH,Urine 6.5 pH Units (5.0-8.0); Protein,Urine Negative (Neg-Trace); Specific Gravity,Urine < 1.005 (1.010-1.025); Urobilinogen,Urine Normal (Normal)
[2020-04-16] MEDS: *HR* LORazepam 0.5 MG TABLET PO SCH ×2 (15:16→20:04)
[2020-04-16] MEDS ORDERED: *HR* Promethazine 25 MG/ML VIAL IVP ONE (15:45)
[2020-04-16] MEDS ORDERED: Ringers Solution, Lactated 1,000 ML IVC SCH (16:30)
[2020-04-16] MEDS ORDERED: Dexmedetomidine HCl 400 MCG/100 ML MLS IVC SCH (16:45)
[2020-04-16] MEDS ORDERED: Dexmedetomidine HCl 400 MCG/100 ML MLS IVC ONE (16:47)
[2020-04-16] MEDS: 0.9 % Sodium Chloride 1,000 ML IVC SCH (17:04)
[2020-04-16] MEDS: Dexmedetomidine HCl 400 MCG/100 ML MLS IVC SCH (17:05)
[2020-04-16] MEDS: Ibuprofen 600 MG TABLET PO PRN (17:06)
[2020-04-16 19:26] LABS: BUN/Creatinine Ratio 14 (6-26); Blood Urea Nitrogen 12 mg/dL (6-20); Calcium 9.5 mg/dL (8.6-10.3); Carbon Dioxide 22 mEq/L (23-29); Chloride 107 mEq/L (98-107); Glucose 94 mg/dL (70-105); Magnesium 2.1 mg/dL (1.6-2.6); Osmolality,Calculated 288 (280-300); Sodium 139 mEq/L (136-145); eGFR For African Americans > 60 (> 60); eGFR For Non-African Americans > 60 (> 60)
[2020-04-16] MEDS: Acetaminophen 325 MG TABLET PO PRN ×2 (20:15→20:27)
[2020-04-17] MEDS: Dexmedetomidine HCl 400 MCG/100 ML MLS IVC SCH ×3 (00:55→19:19)
[2020-04-17] MEDS: 0.9 % Sodium Chloride 1,000 ML IVC SCH ×3 (01:22→16:13)
[2020-04-17] MEDS: *HR* LORazepam 2 MG/ML VIAL IVP PRN ×8 (04:02→23:05)
[2020-04-17] MEDS: *HR* Enoxaparin 40 MG/0.4 ML SYRINGE SQ SCH (04:43)
[2020-04-17] MEDS: Vitamin B Complex/Vit C/Vit E 1 EACH TABLET PO SCH (08:25)
[2020-04-17] MEDS: Nicotine 14 MG PATCH.TD24 TD SCH (08:25)
[2020-04-17] MEDS: Folic Acid 1 MG TABLET PO SCH (08:26)
[2020-04-17] MEDS: *HR* LORazepam 0.5 MG TABLET PO SCH ×3 (08:26→19:08)
[2020-04-17] MEDS: Ibuprofen 600 MG TABLET PO PRN (08:26)
[2020-04-17] MEDS: Thiamine (B-1) 100 MG TABLET PO SCH (08:27)
[2020-04-17] MEDS: Hydrocortisone 10 MG TABLET PO SCH (08:28)
[2020-04-17] MEDS ORDERED: Hydrocortisone 10 MG TABLET PO ONE (11:09)
[2020-04-17 11:49] LABS: Basophils # 0.1 K/mcL (0.0-0.2); Basophils % 0.6 %; Eosinophils # 0.1 K/mcL (0.0-0.6); Hematocrit 37.4 % (35.3-44.9); Immature Granulocytes % 0.6 % (0-4); Lymphocytes # 2.5 K/mcL (0.6-4.6); Lymphocytes % 22.4 %; Mean Corpuscular HGB Conc 33.2 g/dL (31.6-35.5); Mean Corpuscular Hemoglobin 32.9 pg (28.0-33.3); Mean Corpuscular Volume 99.2 fL (83.0-100.0); Mean Platelet Volume 10.1 fL (9.4-12.4); Monocytes % 8.8 %; Neutrophils # 7.5 K/mcL (1.6-8.9); Platelet Count 388 K/mcL (140-400); Red Blood Count 3.77 M/mcL (3.82-4.97); Red Cell Distribution Width 13.7 % (11.5-14.5); Segmented Neutrophils % 66.6 %; White Blood Count 11.2 K/mcL (4.3-11.1)
[2020-04-17 12:03] LABS: BUN/Creatinine Ratio 22 (6-26); Blood Urea Nitrogen 17 mg/dL (6-20); Calcium 8.8 mg/dL (8.6-10.3); Carbon Dioxide 21 mEq/L (23-29); Chloride 109 mEq/L (98-107); Glucose 97 mg/dL (70-105); Magnesium 1.9 mg/dL (1.6-2.6); Osmolality,Calculated 289 (280-300); Potassium 4.6 mEq/L (3.5-5.1); Sodium 139 mEq/L (136-145); eGFR For African Americans > 60 (> 60); eGFR For Non-African Americans > 60 (> 60)
[2020-04-17 12:15] LABS: Thyroid Stimulating Hormone 1.008 mcIU/mL (0.340-5.600)
[2020-04-17 12:18] LABS: Hemoglobin 12.4 g/dL (11.5-15.4)
[2020-04-17 12:23] LABS: Hepatitis B Surface Antigen Nonreactive (Nonreactive)
[2020-04-17 12:26] LABS: Folate 14.4 ng/mL (3.0-16.0)
[2020-04-17 12:52] LABS: HIV-1&2 Antibody & p24 Ag Nonreactive (Nonreactive); Hepatitis C Virus Antibody Nonreactive (Nonreactive)
[2020-04-17] MEDS: *HR* Promethazine 25 MG/ML VIAL IVP PRN (19:12)
[2020-04-18] MEDS: 0.9 % Sodium Chloride 1,000 ML IVC SCH ×3 (00:52→17:33)
[2020-04-18] MEDS: Dexmedetomidine HCl 400 MCG/100 ML MLS IVC SCH ×3 (00:57→17:39)
[2020-04-18 02:10] LABS: Basophils # 0.1 K/mcL (0.0-0.2); Basophils % 0.5 %; Eosinophils # 0.1 K/mcL (0.0-0.6); Eosinophils % 0.7 %; Hematocrit 37.6 % (35.3-44.9); Immature Granulocytes % 0.3 % (0-4); Lymphocytes # 3.6 K/mcL (0.6-4.6); Lymphocytes % 38.3 %; Mean Corpuscular HGB Conc 31.9 g/dL (31.6-35.5); Mean Corpuscular Hemoglobin 31.6 pg (28.0-33.3); Mean Corpuscular Volume 98.9 fL (83.0-100.0); Mean Platelet Volume 9.5 fL (9.4-12.4); Monocytes # 0.7 K/mcL (0.0-1.3); Monocytes % 7.9 %; Neutrophils # 4.9 K/mcL (1.6-8.9); Platelet Count 360 K/mcL (140-400); Red Cell Distribution Width 13.4 % (11.5-14.5); Segmented Neutrophils % 52.3 %; White Blood Count 9.4 K/mcL (4.3-11.1)
[2020-04-18 02:26] LABS: BUN/Creatinine Ratio 15 (6-26); Blood Urea Nitrogen 8 mg/dL (6-20); Calcium 8.5 mg/dL (8.6-10.3); Carbon Dioxide 21 mEq/L (23-29); Chloride 113 mEq/L (98-107); Glucose 108 mg/dL (70-105); Magnesium 1.8 mg/dL (1.6-2.6); Osmolality,Calculated 293 (280-300); Potassium 3.7 mEq/L (3.5-5.1); Sodium 142 mEq/L (136-145); eGFR For African Americans > 60 (> 60); eGFR For Non-African Americans > 60 (> 60)
[2020-04-18] MEDS: *HR* Enoxaparin 40 MG/0.4 ML SYRINGE SQ SCH ×2 (07:03→08:14)
[2020-04-18] MEDS: *HR* LORazepam 0.5 MG TABLET PO SCH ×4 (08:15→21:25)
[2020-04-18] MEDS: Folic Acid 1 MG TABLET PO SCH (08:15)
[2020-04-18] MEDS: Hydrocortisone 10 MG TABLET PO SCH (08:15)
[2020-04-18] MEDS: Vitamin B Complex/Vit C/Vit E 1 EACH TABLET PO SCH (08:15)
[2020-04-18] MEDS: Thiamine (B-1) 100 MG TABLET PO SCH (08:15)
[2020-04-18] MEDS: Nicotine 14 MG PATCH.TD24 TD SCH (08:15)
[2020-04-18] MEDS ORDERED: Acetaminophen IV 1,000 MG/100 ML INFUS..BTL IVPB ONE (09:40)
[2020-04-18 14:08] LABS: Albumin 3.8 g/dL (3.5-5.7); Albumin/Globulin Ratio 1.7 (1.1-2.2); Bilirubin,Direct 0.1 mg/dL (0.0-0.2); Bilirubin,Indirect 0.6 mg/dL (0.0-1.0); Bilirubin,Total 0.7 mg/dL (0.3-1.0); Globulin 2.2 g/dL (2.4-3.5)
[2020-04-18] MEDS: *HR* Promethazine 25 MG/ML VIAL IVP PRN (17:38)
[2020-04-18] MEDS ORDERED: *HR* LORazepam 0.5 MG TABLET PO ONE (21:58)
[2020-04-19 01:13] LABS: Basophils # 0.1 K/mcL (0.0-0.2); Basophils % 0.7 %; Eosinophils # 0.1 K/mcL (0.0-0.6); Eosinophils % 1.3 %; Hematocrit 37.4 % (35.3-44.9); Hemoglobin 12.1 g/dL (11.5-15.4); Immature Granulocytes % 0.4 % (0-4); Lymphocytes # 4.4 K/mcL (0.6-4.6); Lymphocytes % 42.1 %; Mean Corpuscular HGB Conc 32.4 g/dL (31.6-35.5); Mean Corpuscular Hemoglobin 31.6 pg (28.0-33.3); Mean Corpuscular Volume 97.7 fL (83.0-100.0); Mean Platelet Volume 9.6 fL (9.4-12.4); Monocytes # 0.8 K/mcL (0.0-1.3); Neutrophils # 4.9 K/mcL (1.6-8.9); Platelet Count 379 K/mcL (140-400); Red Blood Count 3.83 M/mcL (3.82-4.97); Red Cell Distribution Width 13.2 % (11.5-14.5); Segmented Neutrophils % 47.5 %; White Blood Count 10.4 K/mcL (4.3-11.1)
[2020-04-19 01:25] LABS: BUN/Creatinine Ratio 12 (6-26); Blood Urea Nitrogen 7 mg/dL (6-20); Calcium 8.7 mg/dL (8.6-10.3); Carbon Dioxide 21 mEq/L (23-29); Chloride 108 mEq/L (98-107); Glucose 96 mg/dL (70-105); Magnesium 1.7 mg/dL (1.6-2.6); Osmolality,Calculated 284 (280-300); Potassium 3.4 mEq/L (3.5-5.1); Sodium 138 mEq/L (136-145); eGFR For African Americans > 60 (> 60); eGFR For Non-African Americans > 60 (> 60)
[2020-04-19] MEDS: 0.9 % Sodium Chloride 1,000 ML IVC SCH (01:26)
[2020-04-19] MEDS: Ibuprofen 600 MG TABLET PO PRN (01:27)
[2020-04-19] MEDS: Dexmedetomidine HCl 400 MCG/100 ML MLS IVC SCH ×2 (01:27→08:33)
[2020-04-19 01:49] LABS: Platelet Estimate Normal (Normal); Reactive Lymphocytes Present (Not Present)
[2020-04-19] MEDS ORDERED: *HR* LORazepam 0.5 MG TABLET PO ONE (04:23)
[2020-04-19] MEDS: Folic Acid 1 MG TABLET PO SCH (08:32)
[2020-04-19] MEDS: Thiamine (B-1) 100 MG TABLET PO SCH (08:32)
[2020-04-19] MEDS: Nicotine 14 MG PATCH.TD24 TD SCH (08:32)
[2020-04-19] MEDS: Vitamin B Complex/Vit C/Vit E 1 EACH TABLET PO SCH (08:32)
[2020-04-19] MEDS: Hydrocortisone 10 MG TABLET PO SCH (08:32)
[2020-04-19] MEDS: *HR* LORazepam 0.5 MG TABLET PO SCH (08:32)
[2020-04-19] MEDS: *HR* Enoxaparin 40 MG/0.4 ML SYRINGE SQ SCH (08:34)
[2020-04-19] MEDS ORDERED: diazePAM 10 MG/2 ML SYRINGE IVP SCH ×2 (08:57→12:00)
[2020-04-19 09:10] LABS: Lipase 7 Units/L (11-82)
[2020-04-19 11:07] VITALS: BP 121/76
== END 2020-04-19 13:25 | disposition left against medical advice (07) | DRG 770 ==
LOC: EMEROOARM 10:28 → 3BNU 10:28 → SUATTDRO 13:02 → 2NNU 14:08 → SUATTDRO 04-17 13:48
PROVIDERS: ADMIT Pharmacist; ATTEND Internal Medicine

== ENCOUNTER 2020-06-08 20:16 | Observation (INO) ==
[2020-06-08] MEDS ORDERED: Ondansetron 4 MG/2 ML VIAL IVP ONE (20:20)
[2020-06-08] MEDS ORDERED: 0.9 % Sodium Chloride 1,000 ML IVC ONE ×2 (20:20→21:34)
[2020-06-08 20:37] LABS: Basophils # 0.1 K/mcL (0.0-0.2); Basophils % 0.2 %; Hematocrit 42.6 % (35.3-44.9); Hemoglobin 14.2 g/dL (11.5-15.4); Immature Granulocytes % 0.8 % (0-4); Lymphocytes # 1.1 K/mcL (0.6-4.6); Lymphocytes % 4.6 %; Mean Corpuscular HGB Conc 33.3 g/dL (31.6-35.5); Mean Corpuscular Hemoglobin 31.7 pg (28.0-33.3); Mean Corpuscular Volume 95.1 fL (83.0-100.0); Mean Platelet Volume 9.5 fL (9.4-12.4); Monocytes # 0.8 K/mcL (0.0-1.3); Monocytes % 3.4 %; Platelet Count 571 K/mcL (140-400); Red Blood Count 4.48 M/mcL (3.82-4.97); Red Cell Distribution Width 13.4 % (11.5-14.5); White Blood Count 24.2 K/mcL (4.3-11.1)
[2020-06-08] MEDS ORDERED: Hydrocortisone Sodium Succ 100 MG/2 ML VIAL IVP ONE (20:44)
[2020-06-08] MEDS ORDERED: Pantoprazole 40 MG VIAL IVP ONE (20:55)
[2020-06-08] MEDS ORDERED: *HR* Promethazine 25 MG/ML VIAL IM ONE (20:55)
[2020-06-08 20:57] LABS: Alanine Aminotransferase 14 Units/L (7-52); Albumin 4.9 g/dL (3.5-5.7); Albumin/Globulin Ratio 1.5 (1.1-2.2); Alkaline Phosphatase 68 Units/L (34-104); Aspartate Amino Transferase 18 Units/L (13-39); BUN/Creatinine Ratio 25 (6-26); Bilirubin,Direct 0.1 mg/dL (0.0-0.2); Bilirubin,Indirect 0.6 mg/dL (0.0-1.0); Bilirubin,Total 0.7 mg/dL (0.3-1.0); Blood Urea Nitrogen 16 mg/dL (6-20); Calcium 9.6 mg/dL (8.6-10.3); Carbon Dioxide 21 mEq/L (23-29); Chloride 103 mEq/L (98-107); Globulin 3.3 g/dL (2.4-3.5); Glucose 148 mg/dL (70-105); Lipase < 3 Units/L (11-82); Osmolality,Calculated 296 (280-300); Potassium 4.3 mEq/L (3.5-5.1); Sodium 141 mEq/L (136-145); Total Protein 8.2 g/dL (6.4-8.9); eGFR For African Americans > 60 (> 60); eGFR For Non-African Americans > 60 (> 60)
[2020-06-08] MEDS ORDERED: Isovue-370 500 ML BOTTLE IVP ONE (21:06)
[2020-06-08 21:13] LABS: Platelet Estimate Increased (Normal)
[2020-06-08] MEDS ORDERED: Prochlorperazine 10 MG/2 ML VIAL IVP STA (23:02)
[2020-06-09 00:09] LABS: Bacteria,Urine Few per hpf (None-Few); Bilirubin,Urine Negative (Negative); Blood,Urine Small (Negative); Clarity,Urine Clear (Clear); Color,Urine Colorless (Yellow); Glucose,Urine (UA) Normal (Normal); Ketones,Urine 10 mg/dL (Negative); Leukocyte Esterase,Urine Negative (Negative); Nitrite,Urine Negative (Negative); PH,Urine 7.5 pH Units (5.0-8.0); Protein,Urine Trace mg/dL (Neg-Trace); RBC,Urine 0-3 per hpf (0-3); Specific Gravity,Urine > 1.030 (1.010-1.025); Squamous Epithelial Cell,Urine Few per hpf (None-Few); Urobilinogen,Urine Normal (Normal); WBC,Urine 0-3 per hpf (0-3)
[2020-06-09 00:18] LABS: Amphetamine Screen,Urine Negative ng/mL (Cutoff=1000); Barbiturate Screen,Urine Negative ng/mL (Cutoff=200); Benzodiazepines Screen,Urine Negative ng/mL (Cutoff=200); Cannabinoid Screen,Urine Positive ng/mL (Cutoff = 50); Cocaine Screen,Urine Negative ng/mL (Cutoff= 300); Opiate Screen,Urine Negative ng/mL (Cutoff=300); Phencyclidine Screen,Urine Negative ng/mL (Cutoff=25)
[2020-06-09 00:26] LABS: Ethanol < 10 mg/dL (Less than 10)
[2020-06-09] MEDS ORDERED: *HR* Promethazine 25 MG/ML VIAL IM PRN (01:21)
[2020-06-09] MEDS ORDERED: Ondansetron 4 MG/2 ML VIAL IVP PRN (01:21)
[2020-06-09] MEDS ORDERED: Acetaminophen 325 MG TABLET PO PRN (01:21)
[2020-06-09] MEDS ORDERED: Naloxone 0.4 MG/ML INJ IVP PRN (01:21)
[2020-06-09] MEDS ORDERED: 0.9 % Sodium Chloride 1,000 ML IVC SCH (01:30)
[2020-06-09] MEDS ORDERED: *HR* LORazepam 2 MG/ML VIAL IVP PRN (02:02)
[2020-06-09] MEDS ORDERED: Hydrocortisone 10 MG TABLET PO SCH (02:30)
[2020-06-09] MEDS: *HR* LORazepam 2 MG/ML VIAL IVP PRN ×8 (03:17→23:35)
[2020-06-09] MEDS: *HR* Heparin 5,000 UNIT/ML VIAL SQ SCH ×3 (05:56→22:31)
[2020-06-09 06:49] LABS: Hematocrit 39.8 % (35.3-44.9); Hemoglobin 13.3 g/dL (11.5-15.4); Mean Corpuscular HGB Conc 33.4 g/dL (31.6-35.5); Mean Corpuscular Hemoglobin 32.8 pg (28.0-33.3); Mean Platelet Volume 9.8 fL (9.4-12.4); Platelet Count 447 K/mcL (140-400); Red Blood Count 4.06 M/mcL (3.82-4.97); Red Cell Distribution Width 13.5 % (11.5-14.5); White Blood Count 17.6 K/mcL (4.3-11.1)
[2020-06-09 07:05] LABS: BUN/Creatinine Ratio 20 (6-26); Blood Urea Nitrogen 12 mg/dL (6-20); Calcium 9.1 mg/dL (8.6-10.3); Carbon Dioxide 23 mEq/L (23-29); Chloride 107 mEq/L (98-107); Glucose 120 mg/dL (70-105); Osmolality,Calculated 293 (280-300); Potassium 3.7 mEq/L (3.5-5.1); Sodium 141 mEq/L (136-145); eGFR For African Americans > 60 (> 60); eGFR For Non-African Americans > 60 (> 60)
[2020-06-09] MEDS ORDERED: Pantoprazole 40 MG VIAL IVP SCH (09:00)
[2020-06-09] MEDS: *HR* LORazepam 1 MG TABLET PO SCH ×2 (14:47→21:01)
[2020-06-09] MEDS ORDERED: Nicotine 21 MG PATCH.TD24 TD SCH (15:00)
[2020-06-09] MEDS ORDERED: *HR* LORazepam 2 MG/ML VIAL IVP ONE (20:48)
[2020-06-09 22:39] VITALS: BP 115/77
== END 2020-06-10 01:30 | disposition left against medical advice (07) ==
LOC: EMEROOARM 20:16 → 3ANU 20:16 → SUATTDRO 23:56 → 3ANU 06-09 00:40
PROVIDERS: ADMIT Student in an Organized Health Care Education/Training Program; ATTEND Family Medicine

== ENCOUNTER 2020-07-03 07:09 | Inpatient (IN) ==
[2020-07-03] MEDS ORDERED: Acetaminophen 325 MG TABLET PO ONE (07:22)
[2020-07-03] MEDS ORDERED: *HR* LORazepam 2 MG/ML VIAL IVP ONE (07:33)
[2020-07-03 07:49] LABS: Basophils # 0.1 K/mcL (0.0-0.2); Eosinophils # 0.1 K/mcL (0.0-0.6); Eosinophils % 0.9 %; Hemoglobin 12.7 g/dL (11.5-15.4); Immature Granulocytes % 0.5 % (0-4); Lymphocytes # 3.2 K/mcL (0.6-4.6); Lymphocytes % 29.4 %; Mean Corpuscular HGB Conc 33.4 g/dL (31.6-35.5); Mean Corpuscular Hemoglobin 32.2 pg (28.0-33.3); Mean Corpuscular Volume 96.2 fL (83.0-100.0); Mean Platelet Volume 9.4 fL (9.4-12.4); Neutrophils # 6.5 K/mcL (1.6-8.9); Platelet Count 389 K/mcL (140-400); Red Blood Count 3.95 M/mcL (3.82-4.97); Red Cell Distribution Width 12.9 % (11.5-14.5); Segmented Neutrophils % 59.2 %
[2020-07-03 07:56] LABS: INR 1.1; Prothrombin Time 12.2 Seconds (9.4-12.1)
[2020-07-03 08:07] LABS: Alanine Aminotransferase 9 Units/L (7-52); Albumin 4.3 g/dL (3.5-5.7); Albumin/Globulin Ratio 1.8 (1.1-2.2); Alkaline Phosphatase 57 Units/L (34-104); Aspartate Amino Transferase 15 Units/L (13-39); BUN/Creatinine Ratio 20 (6-26); Bilirubin,Indirect 0.4 mg/dL (0.0-1.0); Bilirubin,Total 0.4 mg/dL (0.3-1.0); Blood Urea Nitrogen 14 mg/dL (6-20); Calcium 8.4 mg/dL (8.6-10.3); Carbon Dioxide 21 mEq/L (23-29); Chloride 102 mEq/L (98-107); Globulin 2.4 g/dL (2.4-3.5); Glucose 82 mg/dL (70-105); Osmolality,Calculated 284 (280-300); Potassium 3.3 mEq/L (3.5-5.1); Sodium 137 mEq/L (136-145); Total Protein 6.7 g/dL (6.4-8.9); eGFR For African Americans > 60 (> 60); eGFR For Non-African Americans > 60 (> 60)
[2020-07-03] MEDS ORDERED: Potassium Chloride 40 MEQ, Lidocaine 1% 2 ML in 0.9 % Sodium Chloride 500 ML IVPB ONE (08:13)
[2020-07-03] MEDS ORDERED: *HR* Promethazine 25 MG/ML VIAL IM ONE (08:24)
[2020-07-03] MEDS ORDERED: Naloxone 0.4 MG/ML INJ IVP PRN (08:54)
[2020-07-03] MEDS ORDERED: *HR* LORazepam 2 MG/ML VIAL IVP PRN (08:55)
[2020-07-03] MEDS: *HR* LORazepam 2 MG/ML VIAL IVP PRN ×7 (10:20→22:31)
[2020-07-03] MEDS: Thiamine (B-1) 100 MG TABLET PO SCH (11:12)
[2020-07-03] MEDS: Vitamin B Complex/Vit C/Vit E 1 EACH TABLET PO SCH (11:12)
[2020-07-03] MEDS: Folic Acid 1 MG TABLET PO SCH (11:12)
[2020-07-03] MEDS: Pantoprazole 40 MG VIAL IVP SCH (11:13)
[2020-07-03] MEDS: Ringers Solution, Lactated 1,000 ML IVC SCH (11:13)
[2020-07-03] MEDS: Nicotine 21 MG PATCH.TD24 TD SCH (11:26)
[2020-07-03] MEDS: Hydrocortisone 10 MG TABLET PO SCH (14:48)
[2020-07-03] MEDS: Ondansetron 4 MG/2 ML VIAL IVP PRN (14:51)
[2020-07-03] MEDS: *HR* Heparin 5,000 UNIT/ML VIAL SQ SCH (16:53)
[2020-07-04] MEDS: Ringers Solution, Lactated 1,000 ML IVC SCH (00:27)
[2020-07-04] MEDS: *HR* LORazepam 2 MG/ML VIAL IVP PRN ×6 (01:25→22:02)
[2020-07-04] MEDS: *HR* Heparin 5,000 UNIT/ML VIAL SQ SCH ×2 (06:19→17:25)
[2020-07-04 06:24] LABS: Basophils # 0.1 K/mcL (0.0-0.2); Basophils % 0.6 %; Eosinophils # 0.1 K/mcL (0.0-0.6); Eosinophils % 0.8 %; Hematocrit 36.8 % (35.3-44.9); Hemoglobin 12.1 g/dL (11.5-15.4); Immature Granulocytes % 0.3 % (0-4); Lymphocytes # 3.3 K/mcL (0.6-4.6); Lymphocytes % 41.7 %; Mean Corpuscular HGB Conc 32.9 g/dL (31.6-35.5); Mean Corpuscular Hemoglobin 32.5 pg (28.0-33.3); Mean Corpuscular Volume 98.9 fL (83.0-100.0); Mean Platelet Volume 9.4 fL (9.4-12.4); Monocytes # 0.8 K/mcL (0.0-1.3); Monocytes % 9.9 %; Neutrophils # 3.6 K/mcL (1.6-8.9); Platelet Count 335 K/mcL (140-400); Red Blood Count 3.72 M/mcL (3.82-4.97); Red Cell Distribution Width 12.9 % (11.5-14.5); Segmented Neutrophils % 46.7 %; White Blood Count 7.8 K/mcL (4.3-11.1)
[2020-07-04 06:41] LABS: BUN/Creatinine Ratio 13 (6-26); Blood Urea Nitrogen 7 mg/dL (6-20); Calcium 8.4 mg/dL (8.6-10.3); Carbon Dioxide 25 mEq/L (23-29); Chloride 107 mEq/L (98-107); Glucose 89 mg/dL (70-105); Osmolality,Calculated 283 (280-300); Potassium 3.6 mEq/L (3.5-5.1); Sodium 138 mEq/L (136-145); eGFR For African Americans > 60 (> 60); eGFR For Non-African Americans > 60 (> 60)
[2020-07-04] MEDS: Thiamine (B-1) 100 MG TABLET PO SCH (08:20)
[2020-07-04] MEDS: Vitamin B Complex/Vit C/Vit E 1 EACH TABLET PO SCH (08:20)
[2020-07-04] MEDS: Folic Acid 1 MG TABLET PO SCH (08:20)
[2020-07-04] MEDS: Nicotine 21 MG PATCH.TD24 TD SCH (08:21)
[2020-07-04] MEDS: Pantoprazole 40 MG VIAL IVP SCH (08:21)
[2020-07-04] MEDS: Hydrocortisone 10 MG TABLET PO SCH (08:21)
[2020-07-04] MEDS: Dexmedetomidine HCl 400 MCG/100 ML MLS IVC SCH (14:19)
[2020-07-04] MEDS: 0.9 % Sodium Chloride 1,000 ML IVC SCH (17:07)
[2020-07-05] MEDS: *HR* LORazepam 2 MG/ML VIAL IVP PRN ×8 (03:35→22:05)
[2020-07-05] MEDS: *HR* Heparin 5,000 UNIT/ML VIAL SQ SCH ×2 (06:04→16:53)
[2020-07-05] MEDS: Folic Acid 1 MG TABLET PO SCH (08:42)
[2020-07-05] MEDS: Thiamine (B-1) 100 MG TABLET PO SCH (08:42)
[2020-07-05] MEDS: Hydrocortisone 10 MG TABLET PO SCH (08:42)
[2020-07-05] MEDS: Nicotine 21 MG PATCH.TD24 TD SCH (08:43)
[2020-07-05] MEDS: Vitamin B Complex/Vit C/Vit E 1 EACH TABLET PO SCH (08:43)
[2020-07-05] MEDS: Dexmedetomidine HCl 400 MCG/100 ML MLS IVC SCH ×2 (09:38→22:04)
[2020-07-05] MEDS: Ondansetron 4 MG/2 ML VIAL IVP PRN (16:53)
[2020-07-05] MEDS: 0.9 % Sodium Chloride 1,000 ML IVC SCH (18:26)
[2020-07-06] MEDS: *HR* LORazepam 2 MG/ML VIAL IVP PRN ×2 (02:10→07:41)
[2020-07-06 03:04] LABS: Basophils % 0.4 %; Eosinophils # 0.1 K/mcL (0.0-0.6); Eosinophils % 1.7 %; Hematocrit 39.8 % (35.3-44.9); Hemoglobin 13.8 g/dL (11.5-15.4); Immature Granulocytes % 0.3 % (0-4); Lymphocytes # 3.2 K/mcL (0.6-4.6); Lymphocytes % 44.4 %; Mean Corpuscular HGB Conc 34.7 g/dL (31.6-35.5); Mean Platelet Volume 9.8 fL (9.4-12.4); Monocytes # 0.6 K/mcL (0.0-1.3); Monocytes % 8.1 %; Neutrophils # 3.3 K/mcL (1.6-8.9); Platelet Count 352 K/mcL (140-400); Red Blood Count 4.06 M/mcL (3.82-4.97); Red Cell Distribution Width 12.7 % (11.5-14.5); Segmented Neutrophils % 45.1 %; White Blood Count 7.3 K/mcL (4.3-11.1)
[2020-07-06 03:23] LABS: BUN/Creatinine Ratio 9 (6-26); Blood Urea Nitrogen 7 mg/dL (6-20); Calcium 9.2 mg/dL (8.6-10.3); Carbon Dioxide 21 mEq/L (23-29); Chloride 104 mEq/L (98-107); Glucose 123 mg/dL (70-105); Osmolality,Calculated 285 (280-300); Phosphorous 3.8 mg/dL (2.7-4.5); Potassium 3.5 mEq/L (3.5-5.1); Sodium 138 mEq/L (136-145); eGFR For African Americans > 60 (> 60); eGFR For Non-African Americans > 60 (> 60)
[2020-07-06] MEDS: *HR* Heparin 5,000 UNIT/ML VIAL SQ SCH (06:20)
[2020-07-06] MEDS: Dexmedetomidine HCl 400 MCG/100 ML MLS IVC SCH (07:41)
[2020-07-06] MEDS: Folic Acid 1 MG TABLET PO SCH (08:18)
[2020-07-06] MEDS: Vitamin B Complex/Vit C/Vit E 1 EACH TABLET PO SCH (08:18)
[2020-07-06] MEDS: Thiamine (B-1) 100 MG TABLET PO SCH (08:18)
[2020-07-06] MEDS: Nicotine 21 MG PATCH.TD24 TD SCH (08:18)
[2020-07-06] MEDS: Hydrocortisone 10 MG TABLET PO SCH (08:18)
[2020-07-06] MEDS ORDERED: Ketorolac 15 MG/ML VIAL IVP ONE (09:19)
[2020-07-06 11:13] VITALS: BP 97/69
== END 2020-07-06 13:58 | disposition left against medical advice (07) | DRG 770 ==
LOC: 3BNU 07:09 → EMEROOARM 07:09 → SUATTDRO 10:07 → 3BNU 10:49 → 2NNU 07-04 12:25 → SUATTDRO 07-04 15:43
PROVIDERS: ADMIT Internal Medicine; ATTEND Internal Medicine

== ENCOUNTER 2020-10-17 09:30 | Observation (INO) ==
[2020-10-17] MEDS ORDERED: *HR* Promethazine 25 MG/ML VIAL IM ONE (09:52)
[2020-10-17] MEDS ORDERED: Hydrocortisone Sodium Succ 100 MG/2 ML VIAL IVP STA (09:52)
[2020-10-17] MEDS ORDERED: 0.9 % Sodium Chloride 1,000 ML IVC ONE ×2 (09:52→11:42)
[2020-10-17 10:42] LABS: Basophils % 0.2 %; Eosinophils % 0.1 %; Hematocrit 43.9 % (35.3-44.9); Hemoglobin 14.3 g/dL (11.5-15.4); Immature Granulocytes % 0.3 % (0-4); Lymphocytes # 1.2 K/mcL (0.6-4.6); Lymphocytes % 7.5 %; Mean Corpuscular HGB Conc 32.6 g/dL (31.6-35.5); Mean Corpuscular Hemoglobin 31.2 pg (28.0-33.3); Mean Corpuscular Volume 95.9 fL (83.0-100.0); Mean Platelet Volume 9.9 fL (9.4-12.4); Monocytes # 0.6 K/mcL (0.0-1.3); Monocytes % 3.8 %; Platelet Count 531 K/mcL (140-400); Red Blood Count 4.58 M/mcL (3.82-4.97); Red Cell Distribution Width 12.5 % (11.5-14.5); Segmented Neutrophils % 88.1 %; White Blood Count 15.9 K/mcL (4.3-11.1)
[2020-10-17 10:59] LABS: Alanine Aminotransferase 17 Units/L (7-52); Albumin 4.7 g/dL (3.5-5.7); Albumin/Globulin Ratio 1.8 (1.1-2.2); Alkaline Phosphatase 47 Units/L (34-104); Amylase 30 Units/L (29-103); Aspartate Amino Transferase 19 Units/L (13-39); BUN/Creatinine Ratio 22 (6-26); Bilirubin,Direct 0.2 mg/dL (0.0-0.2); Bilirubin,Indirect 0.6 mg/dL (0.0-1.0); Bilirubin,Total 0.8 mg/dL (0.3-1.0); Blood Urea Nitrogen 14 mg/dL (6-20); Calcium 9.3 mg/dL (8.6-10.3); Carbon Dioxide 25 mEq/L (23-29); Chloride 104 mEq/L (98-107); Globulin 2.6 g/dL (2.4-3.5); Glucose 102 mg/dL (70-105); Lipase 12 Units/L (11-82); Osmolality,Calculated 291 (280-300); Potassium 3.3 mEq/L (3.5-5.1); Sodium 140 mEq/L (136-145); Total Protein 7.3 g/dL (6.4-8.9); eGFR For African Americans > 60 (> 60); eGFR For Non-African Americans > 60 (> 60)
[2020-10-17] MEDS ORDERED: Ondansetron 4 MG/2 ML VIAL IVP ONE (11:42)
[2020-10-17] MEDS ORDERED: Metoclopramide 10 MG/2 ML VIAL IVP ONE (12:21)
[2020-10-17] MEDS ORDERED: Haloperidol Lactate 5 MG/ML VIAL IVP ONE (13:53)
[2020-10-17] MEDS ORDERED: Pantoprazole 40 MG VIAL IVP ONE (14:05)
[2020-10-17 14:24] LABS: Bacteria,Urine Few per hpf (None-Few); Bilirubin,Urine Negative (Negative); Blood,Urine Moderate (Negative); Clarity,Urine Clear (Clear); Color,Urine Yellow (Yellow); Glucose,Urine (UA) Normal (Normal); Ketones,Urine 80 mg/dL (Negative); Leukocyte Esterase,Urine Negative (Negative); Mucus,Urine Few per lpf (None-Few); Nitrite,Urine Negative (Negative); PH,Urine 6.5 pH Units (5.0-8.0); Protein,Urine 30 mg/dL (Neg-Trace); Specific Gravity,Urine 1.024 (1.010-1.025); Squamous Epithelial Cell,Urine Moderate per hpf (None-Few); Urobilinogen,Urine Normal (Normal)
[2020-10-17 16:18] LABS: Magnesium 1.8 mg/dL (1.6-2.6)
[2020-10-17 17:44] LABS: Ethanol < 10 mg/dL (Less than 10)
[2020-10-17] MEDS ORDERED: Naloxone 0.4 MG/ML INJ IVP PRN (17:54)
[2020-10-17] MEDS ORDERED: 0.9 % Sodium Chloride 1,000 ML IVC SCH (18:00)
[2020-10-17] MEDS: Ondansetron 4 MG/2 ML VIAL IVP PRN (22:59)
[2020-10-18] MEDS ORDERED: *HR* Promethazine 25 MG/ML VIAL IM ONE ×3 (02:08→20:05)
[2020-10-18 07:14] LABS: Hematocrit 41.7 % (35.3-44.9); Hemoglobin 13.5 g/dL (11.5-15.4); Mean Corpuscular HGB Conc 32.4 g/dL (31.6-35.5); Mean Corpuscular Hemoglobin 30.6 pg (28.0-33.3); Mean Corpuscular Volume 94.6 fL (83.0-100.0); Mean Platelet Volume 9.7 fL (9.4-12.4); Platelet Count 468 K/mcL (140-400); Red Blood Count 4.41 M/mcL (3.82-4.97); Red Cell Distribution Width 12.2 % (11.5-14.5); White Blood Count 10.6 K/mcL (4.3-11.1)
[2020-10-18 09:06] LABS: BUN/Creatinine Ratio 15 (6-26); Blood Urea Nitrogen 7 mg/dL (6-20); Calcium 8.7 mg/dL (8.6-10.3); Carbon Dioxide 22 mEq/L (23-29); Chloride 103 mEq/L (98-107); Glucose 88 mg/dL (70-105); Osmolality,Calculated 279 (280-300); Potassium 3.2 mEq/L (3.5-5.1); Sodium 136 mEq/L (136-145); eGFR For African Americans > 60 (> 60); eGFR For Non-African Americans > 60 (> 60)
[2020-10-18] MEDS ORDERED: 0.9 % Sodium Chloride 500 ML IVC SCH (09:30)
[2020-10-18] MEDS: Ondansetron 4 MG/2 ML VIAL IVP PRN ×2 (09:57→18:28)
[2020-10-18] MEDS ORDERED: Potassium Chloride 20 MEQ, Lidocaine 1% 2 ML in 0.9 % Sodium Chloride 250 ML IVPB ONE (10:05)
[2020-10-18] MEDS: Hydrocortisone 10 MG TABLET PO SCH (16:24)
[2020-10-18 16:49] LABS: BUN/Creatinine Ratio 17 (6-26); Blood Urea Nitrogen 8 mg/dL (6-20); Calcium 9.3 mg/dL (8.6-10.3); Carbon Dioxide 21 mEq/L (23-29); Chloride 102 mEq/L (98-107); Glucose 89 mg/dL (70-105); Osmolality,Calculated 276 (280-300); Potassium 3.4 mEq/L (3.5-5.1); Sodium 134 mEq/L (136-145); eGFR For African Americans > 60 (> 60); eGFR For Non-African Americans > 60 (> 60)
[2020-10-18] MEDS ORDERED: Potassium Chloride Elixir 20 MEQ/15 ML UDC PO ONE (17:11)
[2020-10-18 17:32] LABS: Magnesium 1.9 mg/dL (1.6-2.6)
[2020-10-18] MEDS ORDERED: Ketorolac 15 MG/ML VIAL IVP PRN (20:07)
[2020-10-18] MEDS ORDERED: Pantoprazole 40 MG VIAL IVP ONE (23:28)
[2020-10-19 01:54] LABS: Hematocrit 44.8 % (35.3-44.9); Mean Corpuscular HGB Conc 33.5 g/dL (31.6-35.5); Mean Corpuscular Hemoglobin 31.1 pg (28.0-33.3); Mean Corpuscular Volume 92.8 fL (83.0-100.0); Mean Platelet Volume 9.7 fL (9.4-12.4); Platelet Count 510 K/mcL (140-400); Red Blood Count 4.83 M/mcL (3.82-4.97); Red Cell Distribution Width 11.9 % (11.5-14.5); White Blood Count 10.3 K/mcL (4.3-11.1)
[2020-10-19 03:20] LABS: BUN/Creatinine Ratio 19 (6-26); Blood Urea Nitrogen 9 mg/dL (6-20); Calcium 9.4 mg/dL (8.6-10.3); Carbon Dioxide 17 mEq/L (23-29); Chloride 101 mEq/L (98-107); Glucose 87 mg/dL (70-105); Osmolality,Calculated 280 (280-300); Potassium 3.5 mEq/L (3.5-5.1); Sodium 136 mEq/L (136-145); eGFR For African Americans > 60 (> 60); eGFR For Non-African Americans > 60 (> 60)
[2020-10-19] MEDS ORDERED: *HR* LORazepam 1 MG TABLET PO ONE (06:04)
[2020-10-19] MEDS: Hydrocortisone 10 MG TABLET PO SCH (08:26)
[2020-10-19] MEDS ORDERED: Pantoprazole 40 MG VIAL IVP SCH (09:00)
[2020-10-19] MEDS ORDERED: *HR* Promethazine 25 MG/ML VIAL IM PRN (09:00)
[2020-10-19 11:06] VITALS: BP 136/89
[2020-10-19] MEDS ORDERED: Ondansetron 4 MG/2 ML VIAL IVP SCH (16:00)
== END 2020-10-19 12:19 | disposition left against medical advice (07) ==
LOC: EMEROOARM 09:30 → 3BNU 09:30 → SUATTDRO 17:25 → 3BNU 18:16
PROVIDERS: ADMIT Internal Medicine; ATTEND Registered Nurse

== ENCOUNTER 2020-10-23 06:37 | Observation (INO) ==
[2020-10-23] MEDS ORDERED: Pantoprazole 40 MG VIAL IVP ONE (06:56)
[2020-10-23] MEDS ORDERED: Ketorolac 30 MG/ML VIAL IVP ONE (06:56)
[2020-10-23] MEDS ORDERED: 0.9 % Sodium Chloride 1,000 ML IVC ONE (06:56)
[2020-10-23] MEDS ORDERED: Ondansetron 4 MG/2 ML VIAL IVP ONE (06:56)
[2020-10-23] MEDS ORDERED: *HR* Promethazine 25 MG/ML VIAL IM ONE (07:47)
[2020-10-23] MEDS ORDERED: Haloperidol Lactate 5 MG/ML VIAL IVP ONE (07:47)
[2020-10-23 08:24] LABS: Basophils # 0.1 K/mcL (0.0-0.2); Basophils % 0.5 %; Eosinophils % 0.2 %; Hematocrit 39.4 % (35.3-44.9); Hemoglobin 13.1 g/dL (11.5-15.4); Immature Granulocytes % 0.3 % (0-4); Lymphocytes # 1.1 K/mcL (0.6-4.6); Lymphocytes % 8.6 %; Mean Corpuscular HGB Conc 33.2 g/dL (31.6-35.5); Mean Corpuscular Hemoglobin 31.2 pg (28.0-33.3); Mean Corpuscular Volume 93.8 fL (83.0-100.0); Mean Platelet Volume 9.8 fL (9.4-12.4); Monocytes # 0.5 K/mcL (0.0-1.3); Monocytes % 4.3 %; Neutrophils # 10.5 K/mcL (1.6-8.9); Platelet Count 421 K/mcL (140-400); Red Cell Distribution Width 12.3 % (11.5-14.5); Segmented Neutrophils % 86.1 %; White Blood Count 12.2 K/mcL (4.3-11.1)
[2020-10-23 09:07] LABS: Bacteria,Urine Few per hpf (None-Few); Bilirubin,Urine Negative (Negative); Blood,Urine Negative (Negative); Budding Yeast,Urine Few per hpf (None Seen); Clarity,Urine Turbid (Clear); Color,Urine Colorless (Yellow); Glucose,Urine (UA) Normal (Normal); Ketones,Urine Negative (Negative); Leukocyte Esterase,Urine Negative (Negative); Mucus,Urine Few per lpf (None-Few); Nitrite,Urine Negative (Negative); Protein,Urine Negative (Neg-Trace); RBC,Urine 0-3 per hpf (0-3); Specific Gravity,Urine 1.009 (1.010-1.025); Squamous Epithelial Cell,Urine Few per hpf (None-Few); Urobilinogen,Urine Normal (Normal); WBC,Urine 0-3 per hpf (0-3)
[2020-10-23 09:49] LABS: Alanine Aminotransferase 14 Units/L (7-52); Albumin 4.3 g/dL (3.5-5.7); Alkaline Phosphatase 37 Units/L (34-104); Amylase 33 Units/L (29-103); Aspartate Amino Transferase 10 Units/L (13-39); BUN/Creatinine Ratio 19 (6-26); Bilirubin,Direct 0.1 mg/dL (0.0-0.2); Bilirubin,Indirect 0.3 mg/dL (0.0-1.0); Bilirubin,Total 0.4 mg/dL (0.3-1.0); Blood Urea Nitrogen 11 mg/dL (6-20); Calcium 8.6 mg/dL (8.6-10.3); Carbon Dioxide 25 mEq/L (23-29); Chloride 105 mEq/L (98-107); Globulin 2.1 g/dL (2.4-3.5); Glucose 111 mg/dL (70-105); Lipase 16 Units/L (11-82); Osmolality,Calculated 286 (280-300); Potassium 3.4 mEq/L (3.5-5.1); Sodium 138 mEq/L (136-145); Total Protein 6.4 g/dL (6.4-8.9); eGFR For African Americans > 60 (> 60); eGFR For Non-African Americans > 60 (> 60)
[2020-10-23] MEDS ORDERED: Naloxone 0.4 MG/ML INJ IVP PRN (11:37)
[2020-10-23] MEDS: Ondansetron 4 MG/2 ML VIAL IVP PRN (12:16)
[2020-10-23] MEDS: 0.9 % Sodium Chloride w KCl 20 MEQ/1,000 ML MLS IVC SCH ×2 (12:18→22:02)
[2020-10-24 04:15] LABS: Basophils # 0.1 K/mcL (0.0-0.2); Basophils % 0.8 %; Eosinophils # 0.1 K/mcL (0.0-0.6); Eosinophils % 1.5 %; Hematocrit 35.7 % (35.3-44.9); Hemoglobin 11.9 g/dL (11.5-15.4); Immature Granulocytes % 0.4 % (0-4); Lymphocytes # 3.7 K/mcL (0.6-4.6); Mean Corpuscular HGB Conc 33.3 g/dL (31.6-35.5); Mean Corpuscular Hemoglobin 31.2 pg (28.0-33.3); Mean Corpuscular Volume 93.7 fL (83.0-100.0); Mean Platelet Volume 10.1 fL (9.4-12.4); Monocytes # 0.8 K/mcL (0.0-1.3); Monocytes % 9.7 %; Neutrophils # 3.7 K/mcL (1.6-8.9); Platelet Count 374 K/mcL (140-400); Red Blood Count 3.81 M/mcL (3.82-4.97); Red Cell Distribution Width 12.5 % (11.5-14.5); Segmented Neutrophils % 43.6 %; White Blood Count 8.5 K/mcL (4.3-11.1)
[2020-10-24 04:35] LABS: BUN/Creatinine Ratio 13 (6-26); Blood Urea Nitrogen 7 mg/dL (6-20); Calcium 8.3 mg/dL (8.6-10.3); Carbon Dioxide 23 mEq/L (23-29); Chloride 108 mEq/L (98-107); Glucose 89 mg/dL (70-105); Magnesium 1.7 mg/dL (1.6-2.6); Osmolality,Calculated 281 (280-300); Potassium 3.9 mEq/L (3.5-5.1); Sodium 137 mEq/L (136-145); eGFR For African Americans > 60 (> 60); eGFR For Non-African Americans > 60 (> 60)
[2020-10-24] MEDS: Pantoprazole 40 MG VIAL IVP SCH (08:39)
[2020-10-24] MEDS: Ondansetron 4 MG/2 ML VIAL IVP PRN (08:39)
[2020-10-24] MEDS: Sennosides/Docusate Sodium TABLET PO SCH ×3 (08:40→20:41)
[2020-10-24] MEDS: Hydrocortisone 10 MG TABLET PO SCH ×2 (08:40→15:06)
[2020-10-24] MEDS: Aspirin Enteric Coated 81 MG Tablet PO SCH ×2 (08:40→12:29)
[2020-10-24] MEDS ORDERED: Prochlorperazine 10 MG/2 ML VIAL IVP ONE (10:01)
[2020-10-24] MEDS ORDERED: *HR* Metoprolol 5 MG/5 ML VIAL IVP ONE (11:35)
[2020-10-24] MEDS: *HR* Promethazine 25 MG/ML VIAL IM PRN ×2 (12:50→23:10)
[2020-10-24] MEDS ORDERED: hydrOXYzine pamoate 25 MG CAPSULE PO PRN (22:25)
[2020-10-25] MEDS: *HR* Promethazine 25 MG/ML VIAL IM PRN (06:05)
[2020-10-25 07:14] VITALS: BP 95/61
[2020-10-25] MEDS: Sennosides/Docusate Sodium TABLET PO SCH (08:27)
[2020-10-25] MEDS: Pantoprazole 40 MG VIAL IVP SCH (08:27)
[2020-10-25] MEDS: Hydrocortisone 10 MG TABLET PO SCH (08:27)
[2020-10-25] MEDS: Aspirin Enteric Coated 81 MG Tablet PO SCH (08:27)
== END 2020-10-25 10:00 | disposition home or self-care (01) ==
LOC: 3BNU 06:37 → EMEROOARM 06:37 → SUATTDRO 11:01 → 3BNU 11:57
PROVIDERS: ADMIT Internal Medicine; ATTEND Internal Medicine

== ENCOUNTER 2020-11-28 09:20 | Observation (INO) ==
[2020-11-28] MEDS ORDERED: Ondansetron 4 MG/2 ML VIAL IVP ONE (09:40)
[2020-11-28] MEDS ORDERED: 0.9 % Sodium Chloride 1,000 ML IVC ONE ×2 (09:52→11:51)
[2020-11-28] MEDS ORDERED: Isovue-370 500 ML BOTTLE IVP ONE (09:52)
[2020-11-28] MEDS ORDERED: *HR* Promethazine 25 MG/ML VIAL IM ONE (09:53)
[2020-11-28 10:13] LABS: Basophils # 0.1 K/mcL (0.0-0.2); Basophils % 0.4 %; Eosinophils # 0.1 K/mcL (0.0-0.6); Eosinophils % 0.4 %; Hematocrit 42.4 % (35.3-44.9); Hemoglobin 14.5 g/dL (11.5-15.4); Immature Granulocytes % 0.4 % (0-4); Lymphocytes # 1.7 K/mcL (0.6-4.6); Lymphocytes % 10.4 %; Mean Corpuscular HGB Conc 34.2 g/dL (31.6-35.5); Mean Corpuscular Hemoglobin 31.8 pg (28.0-33.3); Mean Platelet Volume 9.3 fL (9.4-12.4); Monocytes # 1.2 K/mcL (0.0-1.3); Monocytes % 7.2 %; Neutrophils # 13.1 K/mcL (1.6-8.9); Platelet Count 456 K/mcL (140-400); Red Blood Count 4.56 M/mcL (3.82-4.97); Red Cell Distribution Width 12.4 % (11.5-14.5); Segmented Neutrophils % 81.2 %; White Blood Count 16.1 K/mcL (4.3-11.1)
[2020-11-28] MEDS ORDERED: Morphine Sulfate 2 MG/ML SYRINGE IVP ONE ×2 (10:18→12:32)
[2020-11-28 10:22] LABS: INR 1.2; Prothrombin Time 13.5 Seconds (9.4-12.1)
[2020-11-28 10:25] LABS: Activated Partial Thrombo Time 31.6 Seconds (26.0-36.0)
[2020-11-28 10:33] LABS: BUN/Creatinine Ratio 22 (6-26); Blood Urea Nitrogen 14 mg/dL (6-20); Calcium 9.3 mg/dL (8.6-10.3); Carbon Dioxide 23 mEq/L (23-29); Chloride 100 mEq/L (98-107); Glucose 113 mg/dL (70-105); Osmolality,Calculated 287 (280-300); Potassium 2.9 mEq/L (3.5-5.1); Sodium 138 mEq/L (136-145); Troponin I < 0.03 ng/mL (< 0.04); eGFR For African Americans > 60 (> 60); eGFR For Non-African Americans > 60 (> 60)
[2020-11-28 11:43] LABS: Amorphous Sediment,Urine Few per hpf (None-Few); Bilirubin,Urine Negative (Negative); Blood,Urine Moderate (Negative); Clarity,Urine Clear (Clear); Color,Urine Colorless (Yellow); Glucose,Urine (UA) Normal (Normal); Ketones,Urine 60 mg/dL (Negative); Leukocyte Esterase,Urine Negative (Negative); Mucus,Urine Few per lpf (None-Few); Nitrite,Urine Negative (Negative); Protein,Urine Negative (Neg-Trace); Specific Gravity,Urine > 1.030 (1.010-1.025); Squamous Epithelial Cell,Urine Few per hpf (None-Few); Urobilinogen,Urine Normal (Normal); WBC,Urine 0-3 per hpf (0-3)
[2020-11-28] MEDS ORDERED: Metoclopramide 10 MG/2 ML VIAL IVP ONE (11:51)
[2020-11-28] MEDS ORDERED: Acetaminophen 325 MG TABLET PO ONE (12:07)
[2020-11-28] MEDS ORDERED: Hydrocortisone Sodium Succ 100 MG/2 ML VIAL IVP ONE (12:19)
[2020-11-28] MEDS ORDERED: Capsaicin 0.025% 60 GM TUBE TP ONE (12:32)
[2020-11-28] MEDS ORDERED: Naloxone 0.4 MG/ML INJ IVP PRN (12:43)
[2020-11-28 13:33] LABS: Amphetamine Screen,Urine Negative ng/mL (Cutoff=1000); Barbiturate Screen,Urine Negative ng/mL (Cutoff=200); Benzodiazepines Screen,Urine Negative ng/mL (Cutoff=200); Cannabinoid Screen,Urine Positive ng/mL (Cutoff = 50); Cocaine Screen,Urine Negative ng/mL (Cutoff= 300); Opiate Screen,Urine Positive ng/mL (Cutoff=300); Phencyclidine Screen,Urine Negative ng/mL (Cutoff=25)
[2020-11-28] MEDS ORDERED: Nicotine 21 MG PATCH.TD24 TD PRN (14:59)
[2020-11-28] MEDS: 0.9 % Sodium Chloride 1,000 ML IVC SCH (15:52)
[2020-11-28] MEDS: Ondansetron 4 MG/2 ML VIAL IVP PRN ×2 (15:53→22:00)
[2020-11-28] MEDS: Pantoprazole 40 MG VIAL IVP SCH (15:53)
[2020-11-28 18:30] LABS: BUN/Creatinine Ratio 15 (6-26); Blood Urea Nitrogen 8 mg/dL (6-20); Calcium 8.4 mg/dL (8.6-10.3); Carbon Dioxide 21 mEq/L (23-29); Chloride 105 mEq/L (98-107); Glucose 82 mg/dL (70-105); Osmolality,Calculated 277 (280-300); Potassium 4.4 mEq/L (3.5-5.1); Sodium 135 mEq/L (136-145); eGFR For African Americans > 60 (> 60); eGFR For Non-African Americans > 60 (> 60)
[2020-11-28] MEDS: *HR* Promethazine 25 MG/ML VIAL IM PRN (18:38)
[2020-11-28] MEDS: *HR* Heparin 5,000 UNIT/ML VIAL SQ SCH (21:59)
[2020-11-29] MEDS: *HR* Promethazine 25 MG/ML VIAL IM PRN ×2 (02:01→10:16)
[2020-11-29] MEDS: 0.9 % Sodium Chloride 1,000 ML IVC SCH (02:07)
[2020-11-29 05:24] LABS: Basophils % 0.4 %; Eosinophils % 0.1 %; Hematocrit 39.9 % (35.3-44.9); Hemoglobin 13.4 g/dL (11.5-15.4); Immature Granulocytes % 0.5 % (0-4); Lymphocytes # 1.9 K/mcL (0.6-4.6); Lymphocytes % 16.8 %; Mean Corpuscular HGB Conc 33.6 g/dL (31.6-35.5); Mean Corpuscular Hemoglobin 31.1 pg (28.0-33.3); Mean Corpuscular Volume 92.6 fL (83.0-100.0); Mean Platelet Volume 10.5 fL (9.4-12.4); Monocytes # 0.9 K/mcL (0.0-1.3); Monocytes % 8.3 %; Neutrophils # 8.3 K/mcL (1.6-8.9); Platelet Count 377 K/mcL (140-400); Red Blood Count 4.31 M/mcL (3.82-4.97); Red Cell Distribution Width 12.1 % (11.5-14.5); Segmented Neutrophils % 73.9 %; White Blood Count 11.2 K/mcL (4.3-11.1)
[2020-11-29 05:32] LABS: BUN/Creatinine Ratio 10 (6-26); Blood Urea Nitrogen 5 mg/dL (6-20); Calcium 8.6 mg/dL (8.6-10.3); Carbon Dioxide 19 mEq/L (23-29); Chloride 106 mEq/L (98-107); Glucose 80 mg/dL (70-105); Magnesium 1.9 mg/dL (1.6-2.6); Osmolality,Calculated 280 (280-300); Phosphorous 3.1 mg/dL (2.7-4.5); Potassium 3.9 mEq/L (3.5-5.1); Sodium 137 mEq/L (136-145); eGFR For African Americans > 60 (> 60); eGFR For Non-African Americans > 60 (> 60)
[2020-11-29] MEDS: Pantoprazole 40 MG VIAL IVP SCH ×2 (06:07→17:52)
[2020-11-29] MEDS: *HR* Heparin 5,000 UNIT/ML VIAL SQ SCH ×2 (06:07→13:25)
[2020-11-29] MEDS: Ondansetron 4 MG/2 ML VIAL IVP PRN (06:08)
[2020-11-29] MEDS ORDERED: Hydrocortisone 10 MG TABLET PO SCH (09:00)
[2020-11-29] MEDS ORDERED: Ondansetron 4 MG/2 ML VIAL IVP PRN (12:18)
[2020-11-29] MEDS ORDERED: Sodium Bicarbonate 75 MEQ in 0.45 % Sodium Chloride 1,000 ML IVC SCH (12:30)
[2020-11-29 19:08] VITALS: BP 113/71
== END 2020-11-29 20:00 | disposition left against medical advice (07) ==
LOC: 3ANU 09:20 → EMEROOARM 09:20 → SUATTDRO 14:50 → 3ANU 15:20
PROVIDERS: ADMIT General Practice; ATTEND Internal Medicine

== ENCOUNTER 2020-11-30 12:36 | Observation (INO) ==
[2020-11-30] MEDS ORDERED: *HR* Promethazine 25 MG/ML VIAL IM ONE (13:10)
[2020-11-30] MEDS ORDERED: Hydrocortisone Sodium Succ 100 MG/2 ML VIAL IVP ONE (13:31)
[2020-11-30] MEDS ORDERED: Capsaicin 0.025% 60 GM TUBE TP ONE (13:32)
[2020-11-30] MEDS ORDERED: Hyoscyamine SL 0.125 MG TAB.SUBL SL ONE (13:32)
[2020-11-30] MEDS ORDERED: 0.9 % Sodium Chloride 1,000 ML IVC ONE (13:34)
[2020-11-30 13:51] LABS: Basophils % 0.3 %; Eosinophils % 0.2 %; Hematocrit 40.1 % (35.3-44.9); Hemoglobin 13.5 g/dL (11.5-15.4); Immature Granulocytes % 0.6 % (0-4); Lymphocytes # 1.5 K/mcL (0.6-4.6); Mean Corpuscular HGB Conc 33.7 g/dL (31.6-35.5); Mean Corpuscular Hemoglobin 30.9 pg (28.0-33.3); Mean Corpuscular Volume 91.8 fL (83.0-100.0); Mean Platelet Volume 9.6 fL (9.4-12.4); Monocytes # 0.5 K/mcL (0.0-1.3); Monocytes % 4.8 %; Neutrophils # 8.4 K/mcL (1.6-8.9); Platelet Count 444 K/mcL (140-400); Red Blood Count 4.37 M/mcL (3.82-4.97); Red Cell Distribution Width 12.2 % (11.5-14.5); Segmented Neutrophils % 80.1 %; White Blood Count 10.5 K/mcL (4.3-11.1)
[2020-11-30 13:58] LABS: INR 1.1; Prothrombin Time 13.2 Seconds (9.4-12.1)
[2020-11-30 14:01] LABS: Activated Partial Thrombo Time 30.9 Seconds (26.0-36.0)
[2020-11-30 14:06] LABS: BUN/Creatinine Ratio 11 (6-26); Blood Urea Nitrogen 7 mg/dL (6-20); Calcium 9.4 mg/dL (8.6-10.3); Carbon Dioxide 27 mEq/L (23-29); Chloride 106 mEq/L (98-107); Glucose 113 mg/dL (70-105); Osmolality,Calculated 293 (280-300); Potassium 3.4 mEq/L (3.5-5.1); Sodium 142 mEq/L (136-145); Troponin I < 0.03 ng/mL (< 0.04); eGFR For African Americans > 60 (> 60); eGFR For Non-African Americans > 60 (> 60)
[2020-11-30] MEDS ORDERED: Metoclopramide 20 MG in 0.9 % Sodium Chloride 50 ML IVPB ONE ×2 (14:15→14:45)
[2020-11-30] MEDS ORDERED: Ondansetron 4 MG/2 ML VIAL IVP ONE (14:16)
[2020-11-30] MEDS ORDERED: Metoclopramide 10 MG/2 ML VIAL IVP ONE (14:20)
[2020-11-30] MEDS ORDERED: 0.9 % Sodium Chloride 1,000 ML IVC SCH (15:45)
[2020-11-30] MEDS ORDERED: Melatonin 3 MG TABLET PO PRN (15:57)
[2020-11-30] MEDS ORDERED: Naloxone 0.4 MG/ML INJ IVP PRN (15:57)
[2020-11-30] MEDS: Ringers Solution, Lactated 1,000 ML IVC SCH (17:58)
[2020-11-30] MEDS ORDERED: Haloperidol Lactate 5 MG/ML VIAL IVP ONE (18:03)
[2020-11-30] MEDS: *HR* Promethazine 25 MG/ML VIAL IM PRN (23:06)
[2020-12-01 01:29] LABS: Basophils % 0.4 %; Eosinophils % 0.2 %; Hematocrit 36.4 % (35.3-44.9); Hemoglobin 12.5 g/dL (11.5-15.4); Immature Granulocytes % 0.3 % (0-4); Lymphocytes # 3.4 K/mcL (0.6-4.6); Lymphocytes % 32.1 %; Mean Corpuscular HGB Conc 34.3 g/dL (31.6-35.5); Mean Corpuscular Hemoglobin 31.8 pg (28.0-33.3); Mean Corpuscular Volume 92.6 fL (83.0-100.0); Mean Platelet Volume 9.7 fL (9.4-12.4); Monocytes # 1.1 K/mcL (0.0-1.3); Monocytes % 10.7 %; Platelet Count 362 K/mcL (140-400); Red Blood Count 3.93 M/mcL (3.82-4.97); Segmented Neutrophils % 56.3 %; White Blood Count 10.7 K/mcL (4.3-11.1)
[2020-12-01 01:33] LABS: BUN/Creatinine Ratio 10 (6-26); Blood Urea Nitrogen 5 mg/dL (6-20); Calcium 8.6 mg/dL (8.6-10.3); Carbon Dioxide 24 mEq/L (23-29); Chloride 103 mEq/L (98-107); Glucose 85 mg/dL (70-105); Magnesium 1.6 mg/dL (1.6-2.6); Osmolality,Calculated 283 (280-300); Sodium 138 mEq/L (136-145); eGFR For African Americans > 60 (> 60); eGFR For Non-African Americans > 60 (> 60)
[2020-12-01] MEDS: Ondansetron 4 MG/2 ML VIAL IVP PRN ×2 (03:33→14:50)
[2020-12-01] MEDS: Ringers Solution, Lactated 1,000 ML IVC SCH (05:08)
[2020-12-01] MEDS: *HR* Promethazine 25 MG/ML VIAL IM PRN (08:32)
[2020-12-01] MEDS: Hydrocortisone 10 MG TABLET PO SCH (08:33)
[2020-12-02 03:28] LABS: BUN/Creatinine Ratio 14 (6-26); Blood Urea Nitrogen 9 mg/dL (6-20); Calcium 9.2 mg/dL (8.6-10.3); Carbon Dioxide 25 mEq/L (23-29); Chloride 103 mEq/L (98-107); Glucose 105 mg/dL (70-105); Osmolality,Calculated 287 (280-300); Potassium 3.2 mEq/L (3.5-5.1); Sodium 139 mEq/L (136-145); eGFR For African Americans > 60 (> 60); eGFR For Non-African Americans > 60 (> 60)
[2020-12-02] MEDS: *HR* Promethazine 25 MG/ML VIAL IM PRN ×2 (05:26→13:33)
[2020-12-02] MEDS ORDERED: Pantoprazole 40 MG VIAL IVP ONE (08:13)
[2020-12-02] MEDS: Hydrocortisone 10 MG TABLET PO SCH (08:58)
[2020-12-02] MEDS: Ondansetron 4 MG/2 ML VIAL IVP PRN ×2 (09:34→17:00)
[2020-12-02] MEDS ORDERED: Haloperidol Lactate 5 MG/ML VIAL IVP ONE (10:49)
[2020-12-02 14:01] VITALS: BP 159/102
== END 2020-12-02 18:20 | disposition left against medical advice (07) ==
LOC: 3ANU 12:36 → EMEROOARM 12:36 → SUATTDRO 16:06 → 3ANU 17:14
PROVIDERS: ADMIT Internal Medicine; ATTEND Internal Medicine

== ENCOUNTER 2021-04-24 22:35 | Inpatient (IN) ==
[2021-04-24] MEDS ORDERED: *HR* LORazepam 2 MG/ML VIAL IVP ONE (23:04)
[2021-04-24] MEDS ORDERED: 0.9 % Sodium Chloride 1,000 ML IVC ONE (23:04)
[2021-04-24] MEDS ORDERED: Thiamine (B-1) 200 MG in 0.9 % Sodium Chloride 50 ML IVPB ONE (23:04)
[2021-04-24] MEDS ORDERED: Folic Acid 1 MG in 0.9 % Sodium Chloride 50 ML IVPB ONE (23:04)
[2021-04-24] MEDS ORDERED: Ondansetron 4 MG/2 ML VIAL IVP ONE (23:05)
[2021-04-24 23:31] LABS: Bilirubin,Urine Negative (Negative); Blood,Urine Negative (Negative); Clarity,Urine Clear (Clear); Color,Urine Light-Yellow (Yellow); Glucose,Urine (UA) Normal (Normal); Hyaline Casts,Urine Few per lpf (None Seen); Ketones,Urine 100 mg/dL (Negative); Leukocyte Esterase,Urine Negative (Negative); Mucus,Urine Few per lpf (None-Few); Nitrite,Urine Negative (Negative); Protein,Urine 30 mg/dL (Neg-Trace); RBC,Urine 0-3 per hpf (0-3); Specific Gravity,Urine 1.028 (1.010-1.025); Squamous Epithelial Cell,Urine Moderate per hpf (None-Few); Urobilinogen,Urine Normal (Normal); WBC,Urine 0-3 per hpf (0-3)
[2021-04-25 01:01] LABS: Basophils # 0.1 K/mcL (0.0-0.2); Basophils % 0.5 %; Eosinophils % 0.2 %; Hemoglobin 13.5 g/dL (11.5-15.4); Immature Granulocytes % 0.6 % (0-4); Lymphocytes # 2.6 K/mcL (0.6-4.6); Lymphocytes % 21.8 %; Mean Corpuscular HGB Conc 34.6 g/dL (31.6-35.5); Mean Corpuscular Hemoglobin 33.3 pg (28.0-33.3); Mean Corpuscular Volume 96.1 fL (83.0-100.0); Mean Platelet Volume 9.6 fL (9.4-12.4); Monocytes # 1.1 K/mcL (0.0-1.3); Monocytes % 8.8 %; Neutrophils # 8.2 K/mcL (1.6-8.9); Platelet Count 489 K/mcL (140-400); Red Blood Count 4.06 M/mcL (3.82-4.97); Red Cell Distribution Width 13.3 % (11.5-14.5); Segmented Neutrophils % 68.1 %
[2021-04-25] MEDS ORDERED: *HR* LORazepam 2 MG/ML VIAL IVP ONE ×5 (01:05→19:37)
[2021-04-25 01:20] LABS: Alanine Aminotransferase 17 Units/L (7-52); Albumin/Globulin Ratio 1.5 (1.1-2.2); Alkaline Phosphatase 62 Units/L (34-104); Aspartate Amino Transferase 16 Units/L (13-39); BUN/Creatinine Ratio 28 (6-26); Bilirubin,Total 0.7 mg/dL (0.3-1.0); Blood Urea Nitrogen 16 mg/dL (6-20); Calcium 8.9 mg/dL (8.6-10.3); Carbon Dioxide 22 mEq/L (23-29); Chloride 103 mEq/L (98-107); Ethanol < 10 mg/dL (Less than 10); Globulin 2.7 g/dL (2.4-3.5); Glucose 115 mg/dL (70-105); Lipase 8 Units/L (11-82); Magnesium 1.7 mg/dL (1.6-2.6); Osmolality,Calculated 284 (280-300); Phosphorous 2.4 mg/dL (2.7-4.5); Potassium 3.4 mEq/L (3.5-5.1); Sodium 136 mEq/L (136-145); Total Protein 6.7 g/dL (6.4-8.9); eGFR For African Americans > 60 (> 60); eGFR For Non-African Americans > 60 (> 60)
[2021-04-25] MEDS ORDERED: *HR* LORazepam 2 MG/ML VIAL IVP PRN (01:28)
[2021-04-25 01:31] LABS: Prothrombin Time 12.1 Seconds (9.4-12.1)
[2021-04-25] MEDS ORDERED: Naloxone 0.4 MG/ML INJ IVP PRN (03:04)
[2021-04-25] MEDS ORDERED: Ondansetron 4 MG/2 ML VIAL IVP PRN (03:04)
[2021-04-25] MEDS ORDERED: *HR* LORazepam 2 MG/ML VIAL ONE (03:20)
[2021-04-25] MEDS: *HR* LORazepam 2 MG/ML VIAL IVP PRN ×6 (03:30→18:35)
[2021-04-25] MEDS: 0.9 % Sodium Chloride 1,000 ML IVC SCH ×2 (04:56→17:01)
[2021-04-25 04:58] LABS: BUN/Creatinine Ratio 24 (6-26); Blood Urea Nitrogen 13 mg/dL (6-20); Calcium 8.2 mg/dL (8.6-10.3); Carbon Dioxide 21 mEq/L (23-29); Chloride 107 mEq/L (98-107); Glucose 86 mg/dL (70-105); Magnesium 1.6 mg/dL (1.6-2.6); Osmolality,Calculated 285 (280-300); Potassium 3.3 mEq/L (3.5-5.1); Sodium 138 mEq/L (136-145); eGFR For African Americans > 60 (> 60); eGFR For Non-African Americans > 60 (> 60)
[2021-04-25 05:04] LABS: Basophils # 0.1 K/mcL (0.0-0.2); Basophils % 0.5 %; Eosinophils # 0.1 K/mcL (0.0-0.6); Eosinophils % 0.5 %; Hematocrit 38.1 % (35.3-44.9); Hemoglobin 12.9 g/dL (11.5-15.4); Immature Granulocytes % 0.3 % (0-4); Lymphocytes # 3.2 K/mcL (0.6-4.6); Lymphocytes % 35.1 %; Mean Corpuscular HGB Conc 33.9 g/dL (31.6-35.5); Mean Corpuscular Hemoglobin 32.7 pg (28.0-33.3); Mean Corpuscular Volume 96.5 fL (83.0-100.0); Mean Platelet Volume 9.8 fL (9.4-12.4); Monocytes # 0.9 K/mcL (0.0-1.3); Neutrophils # 4.9 K/mcL (1.6-8.9); Platelet Count 456 K/mcL (140-400); Red Blood Count 3.95 M/mcL (3.82-4.97); Red Cell Distribution Width 13.4 % (11.5-14.5); Segmented Neutrophils % 53.6 %; White Blood Count 9.2 K/mcL (4.3-11.1)
[2021-04-25] MEDS ORDERED: Potassium Chloride Elixir 20 MEQ/15 ML UDC PO ONE (05:34)
[2021-04-25] MEDS: Nicotine 14 MG PATCH.TD24 TD SCH (07:43)
[2021-04-25] MEDS ORDERED: *HR* Promethazine 25 MG/ML VIAL IM ONE (19:46)
[2021-04-25] MEDS ORDERED: *HR* LORazepam 2 MG/ML VIAL IM STA (20:24)
[2021-04-25 21:06] LABS: BUN/Creatinine Ratio 11 (6-26); Blood Urea Nitrogen 7 mg/dL (6-20); Calcium 8.5 mg/dL (8.6-10.3); Carbon Dioxide 19 mEq/L (23-29); Chloride 108 mEq/L (98-107); Glucose 79 mg/dL (70-105); Osmolality,Calculated 287 (280-300); Potassium 3.4 mEq/L (3.5-5.1); Sodium 140 mEq/L (136-145); eGFR For African Americans > 60 (> 60); eGFR For Non-African Americans > 60 (> 60)
[2021-04-25] MEDS ORDERED: Calcium Gluconate 1gm/50mL 1 GM/50 ML BAG IVPB ONE (21:09)
[2021-04-25] MEDS ORDERED: 0.9 % Sodium Chloride 1,000 ML IVC SCH (21:15)
[2021-04-25] MEDS ORDERED: Potassium Chloride 20 MEQ, Lidocaine 1% 2 ML in 0.9 % Sodium Chloride 250 ML IVPB ONE (21:30)
[2021-04-25] MEDS ORDERED: diazePAM 10 MG/2 ML SYRINGE IVP PRN (21:53)
[2021-04-26] MEDS ORDERED: Valproic Acid INJ 1,000 MG in 0.9 % Sodium Chloride 100 ML IVPB ONE (00:15)
[2021-04-26] MEDS: diazePAM 10 MG/2 ML SYRINGE IVP PRN ×2 (05:13→12:45)
[2021-04-26 07:52] LABS: Hematocrit 41.2 % (35.3-44.9); Hemoglobin 13.5 g/dL (11.5-15.4); Mean Corpuscular HGB Conc 32.8 g/dL (31.6-35.5); Mean Corpuscular Hemoglobin 32.9 pg (28.0-33.3); Mean Corpuscular Volume 100.5 fL (83.0-100.0); Mean Platelet Volume 9.6 fL (9.4-12.4); Platelet Count 394 K/mcL (140-400); Red Cell Distribution Width 13.6 % (11.5-14.5); White Blood Count 10.4 K/mcL (4.3-11.1)
[2021-04-26 07:56] LABS: Alanine Aminotransferase 13 Units/L (7-52); Albumin 3.9 g/dL (3.5-5.7); Albumin/Globulin Ratio 1.8 (1.1-2.2); Alkaline Phosphatase 56 Units/L (34-104); Aspartate Amino Transferase 19 Units/L (13-39); BUN/Creatinine Ratio 8 (6-26); Bilirubin,Direct 0.1 mg/dL (0.0-0.2); Bilirubin,Indirect 0.5 mg/dL (0.0-1.0); Bilirubin,Total 0.6 mg/dL (0.3-1.0); Blood Urea Nitrogen 5 mg/dL (6-20); Calcium 8.8 mg/dL (8.6-10.3); Carbon Dioxide 20 mEq/L (23-29); Chloride 111 mEq/L (98-107); Globulin 2.2 g/dL (2.4-3.5); Glucose 78 mg/dL (70-105); Magnesium 1.8 mg/dL (1.6-2.6); Osmolality,Calculated 286 (280-300); Potassium 3.9 mEq/L (3.5-5.1); Sodium 140 mEq/L (136-145); Total Protein 6.1 g/dL (6.4-8.9); eGFR For African Americans > 60 (> 60); eGFR For Non-African Americans > 60 (> 60)
[2021-04-26] MEDS: Nicotine 14 MG PATCH.TD24 TD SCH (08:29)
[2021-04-26 11:14] VITALS: BP 128/82; PULSE 90; TEMP 98.2; O2SAT 96
[2021-04-27] MEDS ORDERED: *HR* Enoxaparin 40 MG/0.4 ML SYRINGE SQ SCH (06:00)
== END 2021-04-26 15:55 | disposition home or self-care (01) | DRG 775 ==
LOC: 3ANU 22:35 → EMEROOARM 22:35 → SUATTDRO 04-25 02:29 → 3ANU 04-25 03:51 → SUATTDRO 04-25 13:22
PROVIDERS: ADMIT Internal Medicine; ATTEND Internal Medicine

== ENCOUNTER 2021-08-18 06:15 | Observation (INO) ==
[2021-08-18] MEDS ORDERED: 0.9 % Sodium Chloride 1,000 ML IVC ONE (06:34)
[2021-08-18] MEDS ORDERED: *HR* LORazepam 1 MG TABLET PO ONE (06:34)
[2021-08-18] MEDS ORDERED: Ondansetron ODT 4 MG TAB.RAPDIS SL ONE (06:35)
[2021-08-18 07:20] LABS: Basophils # 0.1 K/mcL (0.0-0.2); Basophils % 0.5 %; Eosinophils % 0.2 %; Hemoglobin 14.4 g/dL (11.5-15.4); Immature Granulocytes % 0.3 % (0-4); Lymphocytes # 1.4 K/mcL (0.6-4.6); Lymphocytes % 13.1 %; Mean Corpuscular HGB Conc 33.5 g/dL (31.6-35.5); Mean Corpuscular Hemoglobin 32.4 pg (28.0-33.3); Mean Corpuscular Volume 96.6 fL (83.0-100.0); Mean Platelet Volume 9.4 fL (9.4-12.4); Monocytes # 0.8 K/mcL (0.0-1.3); Monocytes % 7.8 %; Neutrophils # 8.2 K/mcL (1.6-8.9); Platelet Count 476 K/mcL (140-400); Red Blood Count 4.45 M/mcL (3.82-4.97); Red Cell Distribution Width 12.7 % (11.5-14.5); Segmented Neutrophils % 78.1 %; White Blood Count 10.5 K/mcL (4.3-11.1)
[2021-08-18 07:53] LABS: Alanine Aminotransferase 19 Units/L (7-52); Albumin 4.8 g/dL (3.5-5.7); Albumin/Globulin Ratio 1.8 (1.1-2.2); Alkaline Phosphatase 59 Units/L (34-104); Aspartate Amino Transferase 15 Units/L (13-39); BUN/Creatinine Ratio 27 (6-26); Bilirubin,Total 1.4 mg/dL (0.3-1.0); Blood Urea Nitrogen 17 mg/dL (6-20); Calcium 9.8 mg/dL (8.6-10.3); Carbon Dioxide 26 mEq/L (23-29); Chloride 104 mEq/L (98-107); Ethanol < 10 mg/dL (Less than 10); Globulin 2.7 g/dL (2.4-3.5); Glucose 107 mg/dL (70-105); Lipase 12 Units/L (11-82); Magnesium 1.9 mg/dL (1.6-2.6); Osmolality,Calculated 292 (280-300); Potassium 3.3 mEq/L (3.5-5.1); Sodium 140 mEq/L (136-145); Total Protein 7.5 g/dL (6.4-8.9); eGFR For African Americans > 60 (> 60); eGFR For Non-African Americans > 60 (> 60)
[2021-08-18] MEDS ORDERED: *HR* LORazepam 2 MG/ML VIAL IVP PRN ×2 (09:09)
[2021-08-18] MEDS ORDERED: Naloxone 0.4 MG/ML INJ IVP PRN (09:11)
[2021-08-18] MEDS ORDERED: Ondansetron ODT 4 MG TAB.RAPDIS SL PRN (09:11)
[2021-08-18] MEDS ORDERED: Ringers Solution, Lactated 1,000 ML IVC SCH (09:15)
[2021-08-18] MEDS ORDERED: Folic Acid 1 MG TABLET PO SCH (09:15)
[2021-08-18] MEDS ORDERED: Thiamine (B-1) 100 MG TABLET PO SCH (09:15)
[2021-08-18] MEDS ORDERED: Vitamin B Complex/Vit C/Vit E 1 EACH TABLET PO SCH (09:15)
[2021-08-18] MEDS: *HR* LORazepam 2 MG/ML VIAL IVP PRN ×3 (11:21→13:58)
[2021-08-18 11:25] VITALS: O2SAT 97
[2021-08-18] MEDS ORDERED: *HR* Heparin 5,000 UNIT/ML VIAL SQ SCH (14:00)
[2021-08-18 15:07] VITALS: BP 116/71; PULSE 77; TEMP 98
[2021-08-19] MEDS ORDERED: Nicotine 21 MG PATCH.TD24 TD SCH (09:00)
== END 2021-08-18 17:30 | disposition left against medical advice (07) ==
LOC: EMEROOARM 06:15 → 2ANU 06:15
PROVIDERS: ADMIT Family Medicine; ATTEND Family Medicine